=== PATIENT | female | born 2000 | race Caucasian/White ===

== ENCOUNTER 2025-06-19 16:52 | Inpatient (IN) | payer BC, SELFPAY ==
[2025-06-19] VITALS (15 sets, daily range): BP systolic 70–143; BP diastolic 45–86; PULSE 73–129; TEMP 36.8; O2SAT 95; BMI 34.0
--- NOTE | 2025-06-19 16:52 | LDADM ---
This patient, Teagan Lopez, was admitted to Labor/Delivery/Recovery [facility] on 06/19/25 at 16:52. Plans for labor, pain management and were discussed with patient. Patient/family oriented to hospital policies and general routines including ID bracelet, bed and alarms, visiting hours, pain management, procedures, bathroom and other care routines, personal items, smoking policy, room service/diet and guest tray routines, infant security routines, and visiting hours. Patient/Family are encouraged to report perceived risks to care and to ask questions if they do not understand what they are told or what they should do. See [facility] for further documentation.
--- OUTSIDE RECORDS SUMMARY | 2025-06-19 17:00 | XMS_ITS | Continuity of Care Document ---
Author Organization [facility] Address [address] [place] [address] Care Team Providers Care Health Services Coordinator Name Role Phone PETER CAMACHO Primary Care Provider Assessment No assessment recorded. Plan of Treatment Reminders Order Date Submit Date Provider Last Modified By Organization Details Last Modified Time Details Appointments INDUCTION 2024 05:00P Shalonda AKERS MD Not available Not available Not available OB ROUTINE 2024 08:45A Shalonda AKERS MD Not available Not available Not available Lab None recorded. Referral None recorded. Procedures None recorded. Surgeries None recorded. Imaging None recorded. Medication Orders famotidin e 20 mg tablet 2024 025 [facility], [address] [facility] [address], [place], [address], 05/20/2025 10:05:57 Patient TargetsNo targets recorded. Patient InstructionsNo instructions recorded. Reason for Referral None Reported. Results Created Date Observation Date Name Description Value Unit Range Abnormal Flag Note LastModifiedBy Organization Detail LastModifiedTime 12/25/19 25 12/24/2024 [UNIT Y] ANEUP LOIDY NIPT fraction 13.0% normal Not Available [facility] [address], [place], [address], 12/24/2024 22:07:33 12/25/19 25 12/24/2024 [UNIT Y] ANEUP LOIDY NIPT 22Q11.2 microdeletio n LOW RISK <1 in 10,000 normal Not Available [facility] [address], [place], [address], 12/24/2024 22:07:33 12/25/19 25 12/24/2024 [UNIT Y] ANEUP LOIDY NIPT sex chromosome aneuploidy NOT DETECT ED normal Not Available [facility] [address], [place], [address], 12/24/2024 22:07:33 12/25/19 25 12/24/2024 [UNIT Y] ANEUP LOIDY NIPT monosomy X LOW RISK <1 in 10,000 normal Not Available [facility] [address], [place], [address], 12/24/2024 22:07:33 12/25/19 25 12/24/2024 [UNIT Y] ANEUP LOIDY NIPT trisomy 13 LOW RISK <1 in 10,000 normal Not Available [facility] [address], [place], [address], 12/24/2024 22:07:33 12/25/19 25 12/24/2024 [UNIT Y] ANEUP LOIDY NIPT trisomy 18 LOW RISK <1 in 10,000 normal Not Available [facility] [address], [place], [address], 12/24/2024 22:07:33 12/25/19 25 12/24/2024 [UNIT Y] ANEUP LOIDY NIPT trisomy 21 LOW RISK <1 in 10,000 normal Not Available [facility] [address], [place], [address], 12/24/2024 22:07:33 12/25/19 25 12/24/2024 [UNIT Y] ANEUP LOIDY NIPT sex FEMALE normal Not Available [facility] [address], [place], [address], 12/24/2024 22:07:33 12/25/19 25 12/24/2024 [UNIT Y] ANEUP LOIDY NIPT gestation SINGLE TON normal Not Available [facility] [address], [place], [address], 12/24/2024 22:07:33 12/25/19 25 12/24/2024 [UNIT Y] ANEUP LOIDY NIPT for detailed report, see pdf See PDF normal Not Available [facility] [address], [place], [address], 12/24/2024 22:07:33 12/26/19 25 12/25/2024 [UNIT Y] NIRAJ Fowler sickle cell disease/beta -thalassemia /hemoglobino pathies carrier screen NEGATI VE normal Not Available [facility] [address], [place], [address], 12/25/2024 22:03:15 12/26/19 25 12/25/2024 [UNIT Y] NIRAJ Fowler alpha-thalas semia carrier screen NEGATI VE normal Not Available [facility] [address], [place], [address], 12/25/2024 22:03:15 12/26/19 25 12/25/2024 [UNIT Y] NIRAJ Fowler cystic fibrosis carrier screen NEGATI VE normal Not Available [facility] [address], [place], [address], 12/25/2024 22:03:15 12/26/19 25 12/25/2024 [UNIT Y] NIRAJ Fowler spinal muscular atrophy carrier screen NEGATI VE 2 SMN1 copies , SNP not presen t normal Not Available [facility] [address], [place], [address], 12/25/2024 22:03:15 12/26/19 25 12/25/2024 [UNIT Y] NIRAJ Fowler for detailed report, see pdf See PDF normal Not Available [facility] [address], [place], [address], 12/25/2024 22:03:15 12/18/1912/17/2024 CULTU RE: URINE result report SEE RESULT S BELOW Test: Cultu re: Urine Speci men Sourc e: Urine - Clean Catch Speci men Type: Urine Speci men Date: 2024 1312 Resul t Date: 20242 Resul t Statu s: Final resul t Abnor mal: No Resul ting Lab: [facility] [address] [facility] [address] Tel: CULTU RE ----- ----- ----- --- No growt h in 1 day (dete ction level of 10,00 0 colon ies / ml.) Not Available [facility] (Lab) [address] [facility], [place], [address], 12/18/2024 22:45:51 12/18/1912/17/2024 CBC W/DIF F WBC 8.4 10'3/ uL 3.5-10 .5 Not Available [facility] (Lab) [address] [place], [address], 12/19/2024 09:54:28 12/18/19 25 12/17/2024 CBC W/DIF F RBC 4.57 10'6/ uL (based on docume nted legal sex) 3.80-5 .20 Not Available [facility] (Lab) [address] [place], [address], 12/19/2024 09:54:28 12/18/19 25 12/17/2024 CBC W/DIF F HGB 14.2 g/dL (based on docume nted legal sex) 11.6-1 5.4 Not Available [facility] (Lab) [address] [place], [address], 12/19/2024 09:54:28 12/18/19 25 12/17/2024 CBC W/DIF F HCT 43.1 % (based on docume nted legal sex) 34.0-4 5.0 Not Available [facility] (Lab) [address], [place], [address], 12/19/2024 09:54:28 12/18/19 25 12/17/2024 CBC W/DIF F MCV 94.3 fL 80.0-9 9.0 Not Available [facility] (Lab) [address], [place], [address], 12/19/2024 09:54:28 12/18/19 25 12/17/2024 CBC W/DIF F MCH 31.1 pg 27.0-3 4.0 Not Available [facility] (Lab) [address], [place], [address], 12/19/2024 09:54:28 12/18/19 25 12/17/2024 CBC W/DIF F MCHC 32.9 g/dL 32.0-3 5.5 Not Available [facility] (Lab) [address], [place], [address], 12/19/2024 09:54:28 12/18/19 25 12/17/2024 CBC W/DIF F RDW 12.5 % 11.0-1 5.0 Not Available [facility] (Lab) [address], [place], [address], 12/19/2024 09:54:28 12/18/1912/17/2024 CBC W/DIF F plt 263 10'3/ uL 150-40 0 Not Available [facility] (Lab) [address], [place], [address], 12/19/2024 09:54:28 12/18/1912/17/2024 CBC W/DIF F MPV 11.1 fL 8.8-12 .1 Not Available [facility] (Lab) [address], [place], [address], 12/19/2024 09:54:28 12/18/19 25 12/17/2024 CBC W/DIF F NRBC's 0.0 % 0.0 Not Available [facility] (Lab) [address], [place], [address], 12/19/2024 09:54:28 12/18/19 25 12/17/2024 CBC W/DIF F absolute NRBCs 0.0 10'3/ uL no refere nce range establ ished Not Available [facility] (Lab) [address], [place], [address], 12/19/2024 09:54:28 12/18/19 25 12/17/2024 CBC W/DIF F neutrophils 70.6 % 34.0-7 3.0 Not Available [facility] (Lab) [address], [place], [address], 12/19/2024 09:54:28 12/18/19 25 12/17/2024 CBC W/DIF F lymphocytes 17.6 % 15.0-5 0.0 Not Available [facility] (Lab) [address], [place], [address], 12/19/2024 09:54:28 12/18/19 25 12/17/2024 CBC W/DIF F monocytes 8.1 % 1.0-15 .0 Not Available [facility] (Lab) [address], [place], [address], 12/19/2024 09:54:28 12/18/19 25 12/17/2024 CBC W/DIF F eosinophils 2.6 % 0.0-8. 0 Not Available [facility] (Lab) [address], [place], [address], 12/19/2024 09:54:28 12/18/19 25 12/17/2024 CBC W/DIF F basophils 0.7 % 0.0-2. 0 Not Available [facility] (Lab) [address], [place], [address], 12/19/2024 09:54:28 12/18/19 25 12/17/2024 CBC W/DIF F immature granulocytes 0.4 % no define d refere nce range Immat ure Granu locyt es (IG) repre sents autom ated enume ratio n of Metam yeloc ytes, Myelo cytes and Promy elocy almaz when IG is < 5%. Blast s are not inclu ded in IG and repor hiren separ ately if prese nt. Not Available [facility] (Lab) [address], [place], [address], 12/19/2024 09:54:28 12/18/19 25 12/17/2024 CBC W/DIF F absolute neutrophils 5.9 10'3/ uL 1.5-8. 0 Not Available [facility] (Lab) [address], [place], [address], 12/19/2024 09:54:28 12/18/19 25 12/17/2024 CBC W/DIF F absolute lymphocytes 1.5 10'3/ uL 1.0-4. 0 Not Available [facility] (Lab) [address], [place], [address], 12/19/2024 09:54:28 12/18/19 25 12/17/2024 CBC W/DIF F absolute monocytes 0.7 10'3/ uL 0.2-1. 0 Not Available [facility] (Lab) [address], [place], [address], 12/19/2024 09:54:28 12/18/19 25 12/17/2024 CBC W/DIF F absolute eosinophils 0.2 10'3/ uL 0.0-0. 6 Not Available [facility] (Lab) [address], [place], [address], 12/19/2024 09:54:28 12/18/19 25 12/17/2024 CBC W/DIF F absolute basophils 0.1 10'3/ uL 0.0-0. 3 Not Available [facility] (Lab) [address] [facility], [place], [address], 12/19/2024 09:54:28 12/18/1912/17/2024 CBC W/DIF F absolute immature granulocytes 0.0 10'3/ uL 0.00-0 .10 : Not Hispa maia or Latin o Refer ence range s for nonbi nary/ inter sex or unspe cifie d gende r patie nts have not been estab lishe d. Pleblanco e refer to the follo wing table for range s estab lishe d for cisge nder patie nts and evalu ate in the clini norbert rob xt of the indiv idual patie nt: https :[email or web address] danyelland book. nm.or g/gen derx Not Available [facility] (Lab) [address] [facility], [place], [address], 12/19/2024 09:54:28 12/18/1912/17/2024 HIV 1/2 ANTIG EN/AN TIBOD Y, REFLE X CONFI RMATI ON HIV antigen/anti body Nonrea ctive nonrea ctive : Not Hispa maia or Latin o HIV-1 antig en and HIV-1 /HIV- 2 antib odies were not detec hiren. No labor atory evide nce of HIV infec tion. Not Available [facility] (Lab) [address] [facility], [place], [address], 12/19/2024 09:54:28 12/18/1912/17/2024 HEPAT ITIS B SURFA CE ANTIG EN hepatitis B surface antigen Non-re active non-re active This assay was perfo rmed using [employer] ratio n reage nts and test kits. Value s obtai jane with other assay metho ds or kits canno t be used inter bailey eably . : Not Hispa miaa or Latin o Not Available [facility] (Lab) [address] [facility], [place], [address], 12/19/2024 09:54:29 12/18/1912/17/2024 HEPAT ITIS C ANTIB HERMELINDA SCREE N, REFLE X TO CONFI RMATI ON hepatitis C antibody Non-re active non-re active Antib odies to HCV Not Detec hiren, does not exclu de the possi bilit y of expos ure to HCV. : Not Hispa maia or Latin o Not Available [facility] (Lab) [address], [place], [address], 12/19/2024 09:54:29 12/18/1912/17/2024 RUBEL LA IGG ANTIB HERMELINDA, QUANT rubella antibodies, IgG Reacti ve reacti ve Not Available [facility] (Lab) [address], [place], [address], 12/19/2024 09:54:29 12/18/1912/17/2024 RUBEL LA IGG ANTIB HERMELINDA, QUANT rubella antibodies, IgG quant 15.1 IU/mL >=10 : Not Hispa maia or Latin o Non-r eacti ve (Non- Immun e) <10 IU/mL React bridger (Immu ne) > or = 10 IU/mL Not Available [facility] (Lab) [address], [place], [address], 12/19/2024 09:54:29 12/18/1912/17/2024 TYPE/ RH/SC REEN ABO/Rh type O POS Not Available [facility] (Lab) [address], [place], [address], 12/19/2024 09:54:30 12/18/1912/17/2024 TYPE/ RH/SC REEN antibody screen NEG Not Available [facility] (Lab) [address], [place], [address], 12/19/2024 09:54:30 12/18/1912/17/2024 TYPE/ RH/SC REEN exp date 2024 23:59 Not Available [facility] (Lab) [address], [place], [address], 12/19/2024 09:54:30 12/18/1912/17/2024 HEMOG LOBIN A1C hemoglobin A1C 5.2 % 4.0-5. 6 : Not Hispa maia or Latin o The Ameri can Diabe almaz Assoc iatio n recom mends that a prima ry goal of thera py shoul d be a HBA1C of < 7% and that physi cians shoul d reeva luate the treat ment regim en in patie nts with HBA1C value s consi stent ly > 8%. <5.7% Latesha l 5.7 - 6.4% Incre ased risk for diabe almaz >=6.5 % Diagn ostic of diabe almaz <7.0% Goal of thera py >8.0% Actio n sugge sted Not Available [facility] (Lab) [address] [facility], [place], [address], 12/19/2024 09:54:30 12/18/1912/17/2024 RPR SCREE N, REFLE X TITER /CONF IRMAT ION RPR qualitative Nonrea ctive nonrea ctive : Not Hispa maia or Latin o Not Available [facility] (Lab) [address] [facility], [place], [address], 12/19/2024 09:54:30 12/18/1912/17/2024 LEAD, BLOOD (ADUL T/PED IATRI C) lead, whole blood <1.0 mcg/d L <3.5 See Note 1 Giuliano sis was perfo rmed by Parth López ed Plasm a Mass Spect romet ry (ICPM S) Note 1 This test was devel oped and its giuliano tical perfo rmanc e higinio cteri stics have been deter mined by [employer] ostic s. It has not been clear ed or appro rico by the FDA. This assay has been valid ated pursu ant to the CLIA regul ation s and is used for clini norbert purpo ses. : Not Hispa maia or Latin o Perfo rming Organ izati on Infor matio n: Site ID: [id number] Name: [employer] ostic sJoseph Lynne Addre ss: [id number] [place] [address] Dire tor: Helio Beltran s Not Available [facility] (Lab) [address], [place], [address], 12/19/2024 09:54:31 12/18/19 25 12/17/2024 drug scree n, urine Amphetamines : negati ve Not Available [facility] [address], [place], [address], 12/17/2024 11:29:48 12/18/19 25 12/17/2024 drug scree n, urine Cannabinoids : negati ve Not Available [facility] [address], [place], [address], 12/17/2024 11:29:48 12/18/19 25 12/17/2024 drug scree n, urine Cocaine: negati ve Not Available [facility] [address], [place], [address], 12/17/2024 11:29:48 12/18/19 25 12/17/2024 drug scree n, urine Opiates: negati ve Not Available [facility] [address], [place], [address], 12/17/2024 11:29:48 12/18/19 25 12/17/2024 drug scree n, urine Barbiturates : negati ve Not Available [facility] [address], [place], [address], 12/17/2024 11:29:48 12/18/19 25 12/17/2024 drug scree n, urine Benzodiazepi benton: negati ve Not Available [facility] [address], [place], [address], 12/17/2024 11:29:48 04/08/20 25 04/08/2025 HEMAT OCRIT (HCT) HCT 42.0 % (based on docume nted legal sex) 34.0-4 5.0 Not Available [facility] (Lab) [address] [facility], [place], [address], 04/09/2025 11:41:17 04/08/20 25 04/08/2025 HEMOG LOBIN (HGB) HGB 13.6 g/dL (based on docume nted legal sex) 11.6-1 5.4 Not Available [facility] (Lab) [address] [facility], [place], [address], 04/09/2025 11:41:18 04/08/2004/08/2025 HIV 1/2 ANTIG EN/AN TIBOD Y, REFLE X CONFI RMATI ON HIV antigen/anti body Nonrea ctive nonrea ctive HIV-1 antig en and HIV-1 /HIV- 2 antib odies were not detec hiren. No labor atory evide nce of HIV infec tion. Not Available [facility] (Lab) [address] [facility], [place], [address], 04/09/2025 11:41:18 04/08/2004/08/2025 GTT - GESTA ESTHER L SCREE N, ACOG OB glucose, 1 hour screen 109 mg/dL 70-[address] [facility] (Lab) [address] [place], [address], 04/09/2025 11:41:18 04/08/2004/08/2025 RPR SCREE N, REFLE X TITER /CONF IRMAT ION RPR qualitative Nonrea ctive nonrea ctive Not Available [facility] (Lab) [address] [place], [address], 04/09/2025 11:41:19 04/08/20 25 04/08/2025 WOMEN 'S HEALT H SWAB PLUS, TIFFANY bacterial vaginosis (bv), tma Negati ve negati ve Not Available [facility] (Lab) [address] [place], [address], 04/09/2025 15:24:57 04/08/20 25 04/08/2025 WOMEN 'S HEALT H SWAB PLUS, TIFFANY cristino species, tma Positi ve negati ve abnormal Not Available [facility] (Lab) [address] [place], [address], 04/09/2025 15:24:57 04/08/20 25 04/08/2025 WOMEN 'S [facility] H SWAB PLUS, TIFFANY cristino glabrata, tma Negati ve negati ve Not Available [facility] (Lab) [address] [place], [address], 04/09/2025 15:24:57 04/08/20 25 04/08/2025 WOMEN 'S [facility] H SWAB PLUS, TIFFANY trichomonas vaginalis, tma Negati ve negati ve Not Available [facility] (Lab) [address] [place], [address], 04/09/2025 15:24:57 04/08/20 25 04/08/2025 WOMEN 'S [facility] SWAB PLUS, TIFFANY chlamydia trachomatis, PCR Negati ve negati ve Not Available [facility] (Lab) [address] [place], [address], 04/09/2025 15:24:57 04/08/20 25 04/08/2025 WOMEN 'S [facility] SWAB PLUS, TIFFANY neisseria gonorrhoeae, PCR Negati ve negati ve Bacte rial vagin osis detec ts the follo wing bacte negro assoc iated with bacte rial vagin osis (BV): Lacto bacil steffen (L. gasse ri, L. crisp atus and L. jense matthew), Gardn erell a vagin chen, and Atopo bium vagin ae. A singl e quali tativ e resul t is repor hiren base on instr ument softw are to deter mine BV posit bridger or negat bridger statu s. The Anel da speci es group tests for C. albic ans, C. tropi calis , C. parap roseanne is, C. dubli niens is. Testi ng is perfo rmed using the Trans cript ion Media hiren Ampli ficat ion metho d. Tests for Anel da glabr octavio, Trich omona s vagin chen, Chlam ydia trach omati s, and Neiss eria gonor rhoea e are also inclu ded in this panel . Not Available [facility] (Lab) [address], [place], [address], 04/09/2025 15:24:57 12/18/19 25 12/17/2024 US, obste tric, nucha l trans lucen cy No observ ation record ed. [email or web address] [facility] [address], [place], [address], 12/17/2024 17:14:02 12/18/19 25 12/17/2024 US, obste tric, nucha l trans lucen cy No observ ation record ed. [email or web address] [facility] [address], [place], [address], 12/19/2024 10:22:49 02/15/20 25 02/14/2025 US, obste tric, 2nd or 3rd trime ster No observ ation record ed. [email or web address] [facility] [address], [place], [address], 02/14/2025 17:07:31 02/15/20 25 02/14/2025 US, obste tric, 2nd or 3rd trime ster No observ ation record ed. [facility] [address], [place], [address], 02/14/2025 16:04:18 05/05/20 25 05/05/2025 US, obste tric, follo w-up No observ ation record ed. [email or web address] [facility] [address], [place], [address], 05/05/2025 18:49:46 05/05/20 25 05/05/2025 US, obste tric, follo w-up No observ ation record ed. [email or web address] [facility] [address], [place], [address], 06/02/2025 11:18:53 Result Notes None recorded. Problems Name Problem SNOMED Code Status Onset Date Resolution Date Notes Provider Name and Address Organization Details Recorded Time 56060539 Active 2024 Gwen Rene null, [facility] 10:44:59 Migraine 10112497 Active 2024 on Qulipta, limited data in , declined MFM consultati on; follows with neurology JOSEY AKERS MD [address], [place], [address], [facility] 11:34:02 Problem Notes None recorded. Procedures Surgical History Date Name Laterality Status Provider Name and Address Organization Details Recorded Time 05/10/2023 Date of Last Pap Smear completed Diane Denton [facility] 06/20/2023 11:38:20 Imaging Results None recorded. Procedure Notes None recorded. Medical Equipment None Reported. Allergies No known drug allergies Medications Name Sig Start Date Stop Date Status Note LastModified by Organization Details LastModified Time amoxicillin 500 mg capsule TAKE 1 CAPSULE BY MOUTH EVERY 8 HOURS UNTIL GONE 06/11 completed Not Available Not Available Not Available azithromyci n 250 mg tablet TAKE 2 TABLETS BY MOUTH ON DAY 1, AND THEN TAKE 1 TABLET BY MOUTH ONCE A DAY ON DAY 2 THROUGH DAY 5 02/14 completed Not Available Not Available Not Available fluconazole 150 mg tablet TAKE 1 TABLET BY MOUTH A ONE TIME DOSE active Not Available Not Available No t Available hydrocodone 5 mg-acetamin ophen 325 mg tablet TAKE 1 TABLET BY MOUTH EVERY 4 HOURS NEEDED WITH FOOD NO MORE THAN 5 PER 24 HOURS 06/11 completed Not Available Not Available Not Available rizatriptan 10 mg tablet TAKE 1 TABLET BY MOUTH NEEDED FOR MIGRAINE MAY REPEAT IN 2 HOURS IF UNRESOLVE D DO NOT EXCEED 30MG IN 24 HOURS 11/26 completed Not Available Not Available Not Available famotidine 20 mg tablet TAKE 1 TABLET BY MOUTH TWICE DAILY active Not Available Not Available No t Available scopolamine 1 mg over [address] 1 PATCH ON THE SKIN EVERY THIRD DAY NEEDED FOR NAUSEA 05/03 completed Not Available Not Available Not Available topiramate 100 mg tablet TAKE 2 TABLETS BY MOUTH NIGHTLY 11/26 completed Not Available Not Available Not Available doxycycline hyclate 100 mg tablet TAKE 1 TABLET BY MOUTH TWICE DAILY FOR 7 DAYS 06/20 completed Not Available Not Available Not Available Sprintec (28) 0.25 mg-0.035 mg tablet Take 1 tablet(s) every day by oral route for 90 days. 06/11 completed Not Available Not Available Not Available magnesium active Not Available Not Carole ilable Not Available calcium active Not Available Not Avail able Not Available iron active Not Available Not Availa ble Not Available active Not Available Not Avai lable Not Available Sprintec (28) 05/03 completed Not Available Not Available Not Available Probiotic active Not Available Not Carole ilable Not Available PreviDent 5000 Booster Plus 1.1 % dental paste AT NIGHT PLACE A PEA SIZED AMOUNT OF PREVIDENT ON TOOTHBRUS H, BRUSH ON, NO EATING OR DRINKING FOR 30 MINUTES LEAVE ON OVERNIGHT 01/17 completed Not Available Not Available [facility] Available [facility] mg disintegrat ing tablet DISSOLVE 1 TABLET BY MOUTH ONCE DAILY NEEDED FOR HEADACHE 11/26 completed Not Available Not Available Not Available Qulipta 30 mg tablet TAKE 1 TABLET BY MOUTH ONCE DAILY active Not Available Not Available No t Available Vitals Date Recorded Body weight Body mass index (BMI) Body height Systolic And Diastolic Provider Name and Address Organization Details Last Updated DateTime 05/20/2025 96526.811 34 g 30.8 kg/m2 163.83 cm 112/72 mm[Hg] Sandra Patrick [place] - [facility] 05/20/2025 09:27:28 Social History Question Answer Notes LastModified by Organizat ion Details LastModified Time How Many Years Have You Consumed Alcohol? 3 Information not available 05/03/2023 Are You Blind Or Do You Have Difficulty Seeing? No Information not available 05/03/2023 What Is Your Level Of Caffeine Consumption? Heavy Information not available 05/03/2023 How Much Tobacco Do You Chew? None Information not available 05/03/2023 In The 14 Days Before Symptom Onset, Have You Had Close Contact With A Laboratory-confirme d COVID-19 While That Case Was Ill? No Information n ot available 05/03/2023 In The 14 Days Before Symptom Onset, Have You Had Close Contact With A Person Who Is Under Investigation For COVID-19 While That Person Was Ill? No Information not available 05/03/2023 Have You Been To An Area Known To Be High Risk For COVID-19? No Information not available 05/03/2023 Are You Deaf Or Do You Have Serious Difficulty Hearing? No Information not available 05/03/2023 What Type Of Diet Are You Following? REGULAR Information n ot available 05/03/2023 What Is The Highest Grade Or Level Of School You Have Completed Or The Highest Degree You Have Received? VA83315-1 Information not available 05/03/2023 Are There Any Guns Present In Your Home? Yes Information not available 05/03/2023 Do You Use Protection During Sex? No Information not available 05/03/2023 Do You Use Your Seat Belt Or Car Seat Routinely? Yes Information not available 05/03/2023 Do You Have Smoke And Carbon Monoxide Detectors In Your Home? Yes Information not available 05/03/2023 How Much Tobacco Do You Smoke? No Information not available 05/03/2023 Do You Use Sunscreen Routinely? No Information not available 05/03/2023 Have You Used IV Drugs? No Information not available 05/03/2023 Sex: Unknown Functional Status Question Answer Note LastModified by Organizat ion Details LastModified Time Do you use any illicit or recreational drugs? No Information not available 05/03/2023 What is your level of alcohol consumption? Occasional Information not available 05/03/2023 Are you able to walk independently without assistance or assistive devices? 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 Occasional Information not available 05/03/2023 Mental Status Question Answer Note LastModified by Organization D etails LastModified Time Do you feel stressed (tense, restless, nervous, or anxious, or unable to sleep at night)? [id number] Information not available 05/03/2023 Family History Nothing Reported. Medical History Condition Response History of STI Y Headaches Y Urinary Tract Infection Y Gynecological History Statement/Question Response Abnormal Pap N Flow Moderate Date of LMP On BCP's at Conception? Y N Was last menstrual period normal N STIs/STDs Y HPV Vaccine N Duration of Flow (days) 7 Current Control Method Date of control 10/31/2017 Are cycles usually normal Y Frequency of Cycle (Q days) 21 Sexually Active? Y BCPs Menses Monthly Y Age of first menstrual cycle 12 Date of Last Pap Smear 05/10/2023 Sexual Problems? N LMP Unknown N Obstetrics History GPAL:G 1 P 0 0 0 0 Past Encounters Encounter ID Performer Location Encounter Start Date Encounter Closed Date Diagnosis/Indication Diagnosis SNOMED-CT Code Diagnosis ICD10 Code Diagnosis IMO Codes Diagnosis Note [id number] JOSEY AKERS MD [facility] [address] [place] [address] 04/22/2025 11:53:59 04/22/2025 12:24:41 Third trimester 69861543 Z34.03 [id number] JOSEY AKERS MD [facility] [address] [place] [address] 05/05/2025 17:28:46 05/06/2025 08:21:27 Uterine size for dates discrepancy 131554089 O26.843 Z3A.32 [id number] MD [facility] [place] [address] [place] [address] 05/07/2025 16:36:41 05/07/2025 17:51:50 Third trimester 76778800 Z34.03 [id number] JOSEY AKERS MD [facility] [address] [place] [address] 05/20/2025 09:16:40 05/20/2025 10:18:45 Heartburn 49832181 R12 73525 Gestation period, 34 weeks 20514748 Z3A.34 [id number] Health Concerns Section Related Observation LastModified by Organization Detai ls LastModified Time None Recorded Concern Status LastModified by Organization Details LastModified Time None Recorded Payers Encounter Date Sequence Insurance Name Policy Number Policy Romero Covered Member ID Romero Member ID Guarantor Name 05/20/2025 1 [place] [id number] Patrice Lopez [id number] Teagan Oraliamarlene Notes Date Note Type Note Provider Name and Address Organization Details Recorded Time 05/20/2025 text/html Generic HPI TemplateReported by Patient JOSEY AKERS MD [address], [place], [address], [facility] 05/20/2025 10:09:39 OBGyn Episode Ob Episode Information Episode Created Date Number of Fetuses Patient Bloodtype Patient rh Status Prepregnancy Weight lbs Domestic Partner Domestic Partner Phone Father Name Marriage Performer Status 12/18/19 25 1 O Positive 144 Patrice Lopez OPEN Fetus Data First Name Last Name Admitted to NICU Weight (g) Sex Living Outcome Pediatric Complications Fetus ID Race Codes Race Delivery Type [id number] Problems Problem Notes Problem Name Start Date End Date Resolution Snomed Code Not e Migraine 12/17/2024 [id number] on Qulipt a, limited data in , declined MFM consultation; follows with neurology Juice Calculation Initial Juice Date Initial Exam Date Initial Exam Provider Initial Ultrasound Date Last Menstrual Period Date Ultra Sound Weeks Gestation 06/26/2025 12/17/2024 11/26/2024 9 Eighteen To Twenty Week Juice Update Ultra Sound Date Fundal Height At Umbil Quickening Date Ultra Sound Latest Weeks Gestation Final Juice Confirmed By Final Juice Confirmed Date Final Juice Date Ultra Sound Latest Days Gestation 0 [email or web address] 12/19/2024 06/26/20 25 0 Pre- Flowsheet Flowsheet Date 12/17/2024 Tam Score Blood Edema Fundus Height Fundus Units Glucose Ketones Leukocytes Nitrite Labor Signs Protein Cervic Dilation Cervic Effacement Cervic Station Type Weight in lbs Pre/Post Dialysis Refused Weight 145.083623150164 BP Diastolic BP Location Tested BP Systolic BP Type 74 L arm 111 sitting Fetus Heart Rate Present A Present Fetus Movement Comments Patient presents to [facility] care. Hx of migraines, on Qulipta, seeing neurologist. Discussed lack of studies of Qulipta in ; animal studies available show increased risk of defects only at extremely high doses (130mg/kg/d vs patient's dose 30mg/d). Neuro appointment on Monday, also offered MFM referral for further evaluation of Qulipta safety. Patient declines. otherwise uncomplicated. No nausea or cramping. NT/NB wnl today, desires NIPT. Will draw today with new OB labs. RTC 4 weeks for routine care. Flowsheet Date 01/17/2025 Tam Score Blood Edema Fundus Height Fundus Units Glucose Ketones Leukocytes Nitrite Labor Signs Protein Cervic Dilation Cervic Effacement Cervic Station Type Weight in lbs Pre/Post Dialysis Refused 148.461710280517 BP Diastolic BP Location Tested BP Systolic BP Type 60 L arm 119 sitting Fetus Heart Rate Present A 137 Present Fetus Movement A No Comments +FM doing well, education an d precautions, congestion x weeks plan zpack, f/u 3 weeks anatomy Flowsheet Date 02/14/2025 Tam Score Blood Edema Fundus Height Fundus Units Glucose Ketones Leukocytes Nitrite Labor Signs Protein Cervic Dilation Cervic Effacement Cervic Station Type Weight in lbs Pre/Post Dialysis Refused BP Diastolic BP Location Tested BP Systolic BP Type Fetus Heart Rate Present Fetus Movement Comments Flowsheet Date 02/14/2025 Tam Score Blood Edema Fundus Height Fundus Units Glucose Ketones Leukocytes Nitrite Labor Signs Protein Cervic Dilation Cervic Effacement Cervic Station Type Weight in lbs Pre/Post Dialysis Refused 157.467490645483 BP Diastolic BP Location Tested BP Systolic BP Type 72 98 sitting Fetus Heart Rate Present A Present Fetus Movement A No Comments Doing well, no yet feeling f etal movement. Stopped Qulipta, neurologist stopped prescribing in . Some congestion. Anatomy complete and normal, EFW 57%. RTC 4 weeks. Flowsheet Date 03/11/2025 Tam Score Blood Edema Fundus Height Fundus Units Glucose Ketones Leukocytes Nitrite Labor Signs Protein Cervic Dilation Cervic Effacement Cervic Station Type Weight in lbs Pre/Post Dialysis Refused Weight 165.540181196078 BP Diastolic BP Location Tested BP Systolic BP Type 70 L arm 117 sitting Fetus Heart Rate Present A 135 Fetus Movement A Yes Comments Doing well, good movem ent. No cramping or bleeding. Minimal migraines. Discussed GCT and labs for next visit. RTC 4 weeks. Flowsheet Date 04/08/2025 Tam Score Blood Edema Fundus Height Fundus Units Glucose Ketones Leukocytes Nitrite Labor Signs Protein Cervic Dilation Cervic Effacement Cervic Station Type Weight in lbs Pre/Post Dialysis Refused Weight 172.953348970671 BP Diastolic BP Location Tested BP Systolic BP Type 78 L arm 126 sitting Fetus Heart Rate Present A 150 Fetus Movement A Yes Comments Good movement. No cram ping or bleeding. Does report increased yellow discharge and irritation, vaginitis swab sent. GCT and labs today. Discussed tdap. RTC 2 weeks. Flowsheet Date 04/22/2025 Tam Score Blood Edema Fundus Height Fundus Units Glucose Ketones Leukocytes Nitrite Labor Signs Protein Cervic Dilation Cervic Effacement Cervic Station Type Weight in lbs Pre/Post Dialysis Refused Weight 174.398234090598 BP Diastolic BP Location Tested BP Systolic BP Type 78 L arm 116 sitting Fetus Heart Rate Present A 145 Fetus Movement A Yes Comments Doing well, no cramping or b leeding. Passed GCT and labs. Irritation and discharge resolved. Repeat growth US and presentation next visit. RTC 2 weeks. Flowsheet Date 05/05/2025 Tam Score Blood Edema Fundus Height Fundus Units Glucose Ketones Leukocytes Nitrite Labor Signs Protein Cervic Dilation Cervic Effacement Cervic Station Type Weight in lbs Pre/Post Dialysis Refused BP Diastolic BP Location Tested BP Systolic BP Type Fetus Heart Rate Present Fetus Movement Comments Flowsheet Date 05/07/2025 Tam Score Blood Edema Fundus Height Fundus Units Glucose Ketones Leukocytes Nitrite Labor Signs Protein Cervic Dilation Cervic Effacement Cervic Station Type Weight in lbs Pre/Post Dialysis Refused 178.710307080519 BP Diastolic BP Location Tested BP Systolic BP Type 73 L arm 128 sitting Fetus Heart Rate Present A 140 Fetus Movement A Yes Comments Baby active, no cramping or bleeding. EFW 71%, vertex. MICHEAL wnl. Would like EIL 06/19. RTC 2 weeks. Dsicussed preadmission. Flowsheet Date 05/20/2025 Tam Score Blood Edema Fundus Height Fundus Units Glucose Ketones Leukocytes Nitrite Labor Signs Protein Cervic Dilation Cervic Effacement Cervic Station Type Weight in lbs Pre/Post Dialysis Refused 182.725999199718 BP Diastolic BP Location Tested BP Systolic BP Type 72 L arm 112 sitting Fetus Heart Rate Present A 145 Fetus Movement A Yes Comments Doing well, good movem ent. No cramping or bleeding. Increased heartburn, discussed tums and pepcid. Scheduled Tdap and RSV. Discussed GBS for next visit. RTC 2 weeks. Flowsheet Date 06/03/2025 Tam Score Blood Edema Fundus Height Fundus Units Glucose Ketones Leukocytes Nitrite Labor Signs Protein Cervic Dilation Cervic Effacement Cervic Station Type Weight in lbs Pre/Post Dialysis Refused Weight 185.072309006774 BP Diastolic BP Location Tested BP Systolic BP Type 72 L arm 127 sitting Fetus Heart Rate Present A 150 Fetus Movement A Yes Comments Good movement. No cram ping or bleeding. Heartburn improved. EIL scheduled. GBS collected. Labor precautions reviewed. RTC 1 week. Flowsheet Date 06/12/2025 Tam Score Blood Edema Fundus Height Fundus Units Glucose Ketones Leukocytes Nitrite Labor Signs Protein Cervic Dilation Cervic Effacement Cervic Station Type Weight in lbs Pre/Post Dialysis Refused Weight 186.291941669246 BP Diastolic BP Location Tested BP Systolic BP Type 78 L arm 121 sitting Fetus Heart Rate Present A 140 Fetus Movement A Yes Comments Baby active. No cramping or bleeding. GBS negative. EIL 06/19. SVE closed internally. Discussed cytotec induction. RTC 1 week. Flowsheet Date 06/17/2025 Tam Score Blood Edema Fundus Height Fundus Units Glucose Ketones Leukocytes Nitrite Labor Signs Protein Cervic Dilation Cervic Effacement Cervic Station Type Weight in lbs Pre/Post Dialysis Refused Weight 188.249927039307 BP Diastolic BP Location Tested BP Systolic BP Type 82 L arm 139 sitting Fetus Heart Rate Present A 145 Fetus Movement A Yes Comments Good movement. No cram ping or bleeding. EIL Monday. Labor precautions reviewed. Flowsheet Date 06/19/2025 Tam Score Blood Edema Fundus Height Fundus Units Glucose Ketones Leukocytes Nitrite Labor Signs Protein Cervic Dilation Cervic Effacement Cervic Station Type Weight in lbs Pre/Post Dialysis Refused BP Diastolic BP Location Tested BP Systolic BP Type Fetus Heart Rate Present Fetus Movement Comments Menstrual History Last Menstrual Date Menses Monthly On Bcp Conception Prior Menses Frequency Hcg Plus Date Menarche Onset Age Delivery Information Delivery Date Delivery Type Labor Anesthesia Weeks Gestation Incision Type Labor Labor Length Hrs Delivered By Post Complications Tubal Sterilization Discharge Date Comments Discharge Information Feeding Method Contraceptive Method Maternal HG B and HCT Levels
--- OUTSIDE RECORDS SUMMARY | 2025-06-19 17:00 | XMS_ITS | Data Portability ---
Author Organization [facility] Address [address] [place] [address] Care Team Providers Care Inside Polisher Name Role Phone DOUG PETER Primary Care Provider Assessment No assessment recorded. [...] famotidin e 20 mg tablet 2024 025 [facility], [address] [facility] Dustin De Leon, [place], [address], 05/20/2025 10:05:57 Patient TargetsNo targets recorded. Patient InstructionsNo instructions recorded. Reason for Referral None Reported. Results Created Date Observation Date Name Description Value Unit Range Abnormal Flag Note LastModifiedBy Organization Detail LastModifiedTime 06/03/2006/03/2025 CULTU RE: GROUP B STREP SCREE N, REFLE X SUSCE PTIBI LITY result report SEE RESULT S BELOW Test: Cultu re: Group B Strep , Refle x Susce ptibi lity ([facility]/ [facility] ) Speci men Sourc e: Vagin a/Rec luz Speci men Type: Vagin al/Re ctal Speci men Date: 2024 1452 Resul t Date: 2024 1318 Resul t Statu s: Final resul t Abnor mal: No Resul ting Lab: [facility] [address] [facility] [address] Tel: CULTU RE ----- ----- ----- --- No Group B strep isola hiren at 2 days (new ctive broth frances guidry t) Not Available [facility] (Lab) [address], [place], [address], 06/06/2025 14:22:10 05/05/20 25 05/05/2025 US, obste tric, follo w-up No observ ation record ed. [email or web address] [facility] [address], [place], [address], 05/05/2025 18:49:46 05/05/20 25 05/05/2025 US, obste tric, follo w-up No observ ation record ed. [email or web address] Meena [address], [address], 06/02/2025 11:18:53 Result Notes None recorded. Problems Name Problem SNOMED Code Status Onset Date Resolution Date Notes Provider Name and Address Organization Details Recorded Time 80308634 Active 2024 Gwen Rene null, [facility] 5 10:44:59 Migraine 95590322 Active 2024 on Qulipta, limited data in , declined MFM consultati on; follows with neurology JOSEY AKERS MD [address], [place], [address], [facility] 5 11:34:02 Problem Notes None recorded. Procedures Surgical History Date Name Laterality Status Provider Name and Address Organization Details Recorded Time 05/10/2023 Date of Last Pap Smear completed Diane Denton [facility] 06/20/2023 11:38:20 Imaging Results None recorded. [...] completed Not Available Not Available Not Available Nurtec ODT 75 mg disintegrat ing tablet DISSOLVE [...] Address Organization Details Last Updated DateTime 05/20/2025 28380.811 34 g 30.8 kg/m2 163.83 cm 112/72 mm[Hg] Sandra Patrick [facility] 05/20/2025 09:27:28 Date Recorded Body height Body mass index (BMI) Body weight Systolic And Diastolic Provider Name and Address Organization Details Last Updated DateTime 06/03/2025 163.83 cm 31.3 kg/m2 91244.59 g 127/72 mm[Hg] HO[facility]IE [facility] 06/03/2025 15:32:50 Date Recorded Body height Body mass index (BMI) Body weight Systolic And Diastolic Provider Name and Address Organization Details Last Updated DateTime 06/12/2025 163.83 cm 31.4 kg/m2 50472.18 g 121/78 mm[Hg] [facility] 06/12/2025 09:43:29 Date Recorded Body height Body mass index (BMI) Body weight Systolic And Diastolic Provider Name and Address Organization Details Last Updated DateTime 06/17/2025 163.83 cm 31.8 kg/m2 62834.37 g 139/82 mm[Hg] [facility] 06/17/2025 09:30:33 Social History Question Answer Notes LastModified by [...] Had Close Contact With A Laboratory-confirme d NICKOID-19 While That Case Was Ill? No Information [...] Or The Highest Degree You Have Received? 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 Occasional Information not available 05/03/2023 Mental Status Question Answer Note LastModified by Organization D etails LastModified Time Do you feel stressed (tense, restless, nervous, or anxious, or unable to sleep at night)? [id number] Information not available 05/03/2023 Family History Nothing Reported. Medical History Condition Response Urinary Tract Infection Y History of STI Y Headaches Y Gynecological History Statement/Question Response Abnormal Pap [...] ICD10 Code Diagnosis IMO Codes Diagnosis Note [id number] Tisha Freeman [facility] [address],[place] [address] 05/03/2023 11:35:50 05/03/2023 12:16:33 [id number] [facility] [address],[place] [address] 05/10/2023 11:32:46 05/10/2023 12:01:30 Gynecologic examination 24551220 Z01.419 Take Calcium with Vitamin D 1200mg daily if not receiving in daily diet. It is strongly advised to have an annual flu shot and up can obtain at most pharmacies . If you have not had a TDap shot in the last 10 years you should obtain one as well. Discussed with patient & provided with informatio n regarding Gardisil vaccine to prevent the 4 strains for HPV that cause cervical cancer if under age 26. Encourage safe sexual practices, to use condoms and limit partners if not already in a monogamous relationsh ip. Do monthly self breast exams. Have mammogram yearly or every other year depending on family history. BRCA testing is now available for patients with strong genetic history of female cancer. If interested contact the office. Engage in daily exercise of low impact aerobic exercise 45-60 minutes 4-5 times weekly. Avoid tobacco and illicit drugs as well as using moderation with alcohol intake less than 1-2 8 oz beverages daily. This lifestyle behavior pattern will lead to less health conditions and longer life span. If BMI greater than 25 weight watchers or dietary consult advised. Patient received above instructio ns, and questions have been answered. If you have any questions please call or respond to this email. Patient was made aware of the patient portal and may obtain a paper copy of today's plan if desired. Pap sent STD Screen sent Genetic Screen discussed Colon Screen na Dexa Screen na Routine Labs na Contracept ion care management 330155566 Z30.9 Happy on her OCPRF sent x 1yr [id number] JASE [facility] [address] [address] 06/20/2023 11:24:45 06/20/2023 12:26:56 Venereal disease screening 107806941 Z11.3 Here for TOCDoing wellNo sx'sPartne r treatedDis cussed safe sex practices/ STD guidelines .No further questionsW ill update on results. Time spent in visit is a total of 15 mins with at least 50% of visit consisting of counseling and review of plan of care. [id number] Ankit Brown MD [facility] [address] [address] 06/11/2024 11:12:45 06/11/2024 12:04:28 Gynecologic examination 37320162 Z01.419 Annual gynecologi norbert exam performed. Patient will come back in a year unless there are new symptoms. Suggest Calcium with Vitamin D if not eating in diet. Patient advised to get annual flu shot. Recommend yearly physicals and perform monthly breast exams. Genetic testing is available for patients with family history of cancer. Engage in safe sexual practices, use condoms. Encouraged to have daily exercise. Avoid tobacco and illicit drugs, moderation of alcohol. If BMI greater than 25 dietary consult advised. If you have any questions please call or email. Pap smear- UTD (2022 - WNL), will repeat in 2025 per ASCCP guidelines laboratory evaluation - PCP STI testing - declined Patient requested to stop BC as she wants to try to conceive. Recommende d taking PNV daily, track periods and ovulation with darnell. [id number] Ankit Brown MD [facility] [address],[place] [address] 11/26/2024 11:58:35 11/26/2024 12:55:32 Uterine size for dates discrepancy 958878928 O26.841 Z3A.09 3904833 [id number] Ankit Brown MD [facility] [address],[place] [address] 11/26/2024 11:58:47 11/26/2024 13:54:00 Amenorrhea 83469802 N91.2 01026 this patient is an 24-year-ol d female with amenorrhea . She has a positive test and ultrasound shows a viable intrauteri ne . We talked about early care. Talked about precaution s in that included comments about diet, exercise, over-the-c ounter medication s.. We talked about vaccines. Talked about genetic screening. Talked about her ultrasound today and your ultrasound at 12 weeks. She will begin routine care. We spent 20 minutes face-to-fa ce. More than 50% was counseling . [id number] JOSEY AKERS MD [facility] [address],[place] [address] 12/17/2024 09:33:51 12/17/2024 10:36:24 screening 452330473 Z36.82 Z3A.12 499618 [id number] JOSEY AKERS MD [facility] [address],[place] [address] 12/17/2024 09:34:13 12/17/2024 11:36:14 11089896 Z34.00 [id number] Migraine 97572198 G43.90 9 [id number] - on Qulipta- discussed limited data in - normal 12 week US- declined MFM referral- following with neurology [id number] Arpita Johnston CNM [facility] [address],[place] [address] 01/17/2025 09:41:07 01/17/2025 10:29:07 Gestation period, 17 weeks 23502763 Z3A.17 9917867 [id number] JOSEY AKERS MD [facility] [address],[place] [address] 02/14/2025 14:10:21 02/14/2025 15:41:09 Ultrasound scan - obstetric 078718984 Z36.3 39125 [id number] MD Izabella LUJAN [address],[place] [address] 02/14/2025 14:10:38 02/14/2025 16:25:43 Third trimester 32370143 Z34.03 47178499 [id number] MD Izabella LUJAN [address],[place] [address] 03/11/2025 10:06:43 03/11/2025 14:40:50 Second trimester 76057769 Z34.02 12123154 [id number] MD Izabella LUJAN [address],[place] [address] 04/08/2025 09:24:00 04/08/2025 10:05:17 Acute vaginitis 73423887 N76.0 69892 Gestation period, 28 weeks 69142624 Z3A.28 0949015 [id number] MD Izabella LUJAN [address],[place] [address] 04/22/2025 11:53:59 04/22/2025 12:24:41 Third trimester 20208739 Z34.03 33794477 [id number] MD Izabella LUJAN [address],[place] [address] 05/05/2025 17:28:46 05/06/2025 08:21:27 Uterine size for dates discrepancy 252091080 O26.843 Z3A.32 4699917 [id number] MD Izabella LUJAN [address],[place] [address] 05/07/2025 16:36:41 05/07/2025 17:51:50 Third trimester 19886792 Z34.03 42861809 [id number] MD Izabella LUJAN [address],[place] [address] 05/20/2025 09:16:40 05/20/2025 10:18:45 Heartburn 69093596 R12 69031 Gestation period, 34 weeks 77684414 Z3A.34 7895988 [id number] JOSEY AKERS MD [facility] [address] [address] 06/03/2025 15:12:33 06/03/2025 16:11:36 Third trimester 86945363 Z34.03 88957731 [id number] JOSEY AKERS MD [facility] [address] [address] 06/12/2025 09:31:22 06/12/2025 12:32:06 Third trimester 32249537 Z34.03 21878642 [id number] JOSEY AKERS MD [facility] [address],[facility] [place] [address] 06/17/2025 09:26:48 06/17/2025 10:08:29 Third trimester 71160741 Z34.03 [id number] Health Concerns Section Related Observation LastModified by Organization Detai ls LastModified Time None Recorded Concern Status LastModified by Organization Details LastModified Time None Recorded Advance Directives Directive None Recorded Payers Insurance Date Sequence Insurance Name Policy Number Policy Romero Covered Member ID Romero Member ID Guarantor Name 06/14/2025 1 [facility] [id number] Patrice Lopez [id number] Teagan Lopez Notes Date Note Type Note Provider Name and Address Organization Details Recorded Time 05/20/2025 text/html Generic HPI TemplateReported by Patient JOSEY AKERS MD [address], [place], [address], [facility] 05/20/2025 10:09:39 06/03/2025 text/html Generic HPI TemplateReported by Patient JOSEY AKERS MD [address], [place], [address], [facility] 06/03/2025 16:08:54 06/12/2025 text/html Generic HPI TemplateReported by Patient JOSEY AKERS MD [address], [place], [address], [facility] 06/12/2025 12:29:51 06/17/2025 text/html Generic HPI TemplateReported by Patient JOSEY AKERS MD [address], [place], [address], [facility] 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 Status 12/18/19 25 1 O Positive 144 Ibrahim Pickell OPEN Fetus Data First Name Last Name Admitted to NICU Weight (g) Sex Living Outcome Pediatric Complications Fetus ID Race Codes Race Delivery Type [id number] Problems Problem Notes Problem Name Start Date End Date Resolution Snomed Code Not e Migraine 12/17/2024 08864353 on Qulipt a, limited data in , [...] Weeks Gestation Final Juice Confirmed By Final Jiuce Confirmed Date Final Juice Date Ultra Sound Latest Days Gestation 0 [email or web address] 12/19/2024 06/26/20 25 0 Pre- Flowsheet Flowsheet Date 12/17/2024 Tam Score Blood Edema Fundus Height Fundus Units Glucose Ketones Leukocytes Nitrite Labor Signs Protein Cervic Dilation Cervic Effacement Cervic Station Type Weight in lbs Pre/Post Dialysis Refused Weight 145.265981445135 BP Diastolic BP Location Tested BP Systolic BP Type 74 L arm 111 sitting Fetus Heart Rate Present A Present Fetus Movement Comments Patient presents to [facility] care. Hx of migraines, on Qulipta, seeing [...] Type Weight in lbs Pre/Post Dialysis Refused 148.751165959105 BP Diastolic BP Location Tested BP Systolic [...] Type Weight in lbs Pre/Post Dialysis Refused 157.680919212214 BP Diastolic BP Location Tested BP Systolic [...] Weight in lbs Pre/Post Dialysis Refused Weight 165.478015236022 BP Diastolic BP Location Tested BP Systolic [...] Weight in lbs Pre/Post Dialysis Refused Weight 172.939627163343 BP Diastolic BP Location Tested BP Systolic [...] Weight in lbs Pre/Post Dialysis Refused Weight 174.985586576729 BP Diastolic BP Location Tested BP Systolic [...] Type Weight in lbs Pre/Post Dialysis Refused 178.757705296379 BP Diastolic BP Location Tested BP Systolic [...] Type Weight in lbs Pre/Post Dialysis Refused 182.742898569897 BP Diastolic BP Location Tested BP Systolic [...] Weight in lbs Pre/Post Dialysis Refused Weight 185.194619003337 BP Diastolic BP Location Tested BP Systolic [...] Weight in lbs Pre/Post Dialysis Refused Weight 186.960207722859 BP Diastolic BP Location Tested BP Systolic [...] Weight in lbs Pre/Post Dialysis Refused Weight 188.120744402000 BP Diastolic BP Location Tested BP Systolic BP Type 82 L arm 139 sitting Fetus Heart Rate Present A 145 Fetus Movement A Yes Comments Good movement. No cram ping or bleeding. EIL Monday. Labor precautions reviewed. Flowsheet Date 06/19/2025 Atm Score Blood Edema Fundus Height Fundus Units [...]
--- OUTSIDE RECORDS SUMMARY | 2025-06-19 17:00 | XMS_ITS | Continuity of Care Document ---
Author Organization [facility]OS IRON [facility], [facility] Address [address] [place] [address] Care Team Providers Care Consumer Relations Complaint Clerk Name Role Phone DOUG PETER Primary Care Provider [phone] Assessment No assessment recorded. Plan of Treatment [...] None recorded. Imaging None recorded. Medication Orders None recorded. Patient TargetsNo targets recorded. Patient InstructionsNo instructions recorded. Reason for Referral None Reported. Results Created Date Observation Date Name Description Value Unit Range Abnormal Flag Note LastModifiedBy Organization Detail LastModifiedTime 12/25/1912/24/2024 [UNIT Y] ANEUP LOIDY NIPT fraction 13.0% normal Not Available Alex [address], [place], [address], 12/24/2024 22:07:33 12/25/19 25 12/24/2024 [UNIT Y] ANEUP LOIDY NIPT 22Q11.2 microdeletio n LOW RISK <1 in 10,000 normal Not Available [facility] [address], [place], [address], 12/24/2024 22:07:33 12/25/19 25 12/24/2024 [UNIT Y] ANEUP LOIDY NIPT sex chromosome aneuploidy NOT DETECT ED normal Not Available [facility] [address], [place], [address], 12/24/2024 22:07:33 12/25/19 25 12/24/2024 [UNIT Y] ANEUP LOIDY NIPT monosomy X LOW RISK <1 in 10,000 normal Not Available [facility] [address], [place], [address], 12/24/2024 22:07:33 12/25/19 25 12/24/2024 [UNIT Y] ANEUP LOIDY NIPT trisomy 13 LOW RISK <1 in 10,000 normal Not Available [facility] [address], [place], [address], 12/24/2024 22:07:33 12/25/19 25 12/24/2024 [UNIT Y] ANEUP LOIDY NIPT trisomy 18 LOW RISK <1 in 10,000 normal Not Available [facility] [address], [place], [address], 12/24/2024 22:07:33 12/25/19 25 12/24/2024 [UNIT Y] ANEUP LOIDY NIPT trisomy 21 LOW RISK <1 in 10,000 normal Not Available [facility] [address], [place], [address], 12/24/2024 22:07:33 12/25/19 25 12/24/2024 [UNIT Y] ANEUP LOIDY NIPT sex FEMALE normal Not Available [facility] [address], [place], [address], 12/24/2024 22:07:33 12/25/19 25 12/24/2024 [UNIT Y] ANEUP LOIDY NIPT gestation SINGLE TON normal Not Available [facility] [address], [place], [address], 12/24/2024 22:07:33 12/25/19 25 12/24/2024 [UNIT Y] ANEUP ASHLEY NIPT for detailed report, see pdf See PDF normal Not Available [facility] [address], [place], [address], 12/24/2024 22:07:33 12/26/19 25 12/25/2024 [UNIT Y] NIRAJ JULIENNE Fowler sickle cell disease/beta -thalassemia /hemoglobino pathies carrier screen NEGATI VE normal Not Available [facility] [address], [place], [address], 12/25/2024 22:03:15 12/26/19 25 12/25/2024 [UNIT Y] NIRAJ JULIENNE Fowler alpha-thalas semia carrier screen NEGATI VE normal Not Available [facility] [address], [place], [address], 12/25/2024 22:03:15 12/26/19 25 12/25/2024 [UNIT Y] NIRAJ JULIENNE Fowler cystic fibrosis carrier screen NEGATI VE normal Not Available [facility] [address], [place], [address], 12/25/2024 22:03:15 12/26/19 25 12/25/2024 [UNIT Y] NIRAJ Fowler spinal muscular atrophy carrier screen NEGATI VE 2 SMN1 copies , SNP not presen t normal Not Available [facility] [address], [place], [address], 12/25/2024 22:03:15 12/26/19 25 12/25/2024 [UNIT Y] NIRAJ Fowler for detailed report, see pdf See PDF normal Not Available [facility] [address], [place], [address], 12/25/2024 22:03:15 12/18/19 25 12/17/2024 CULTU RE: URINE result report SEE RESULT S BELOW Test: Cultu re: Urine Speci men Sourc e: Urine - Clean Catch Speci men Type: Urine Speci men Date: 2024 1312 Resul t Date: 2024 2142 Resul t Statu s: Final resul t Abnor mal: No Resul ting Lab: [facility] [address] [facility] [address] Tel: CULTU RE ----- ----- ----- --- No growt h in 1 day (dete ction level of 10,00 0 colon ies / ml.) Not Available [facility] (Lab) [address], [place], [address], 12/18/2024 22:45:51 12/18/1912/17/2024 CBC W/DIF F WBC 8.4 10'3/ uL 3.5-10 .5 Not Available [facility] (Lab) [address] [place], [address], 12/19/2024 09:54:28 12/18/1912/17/2024 CBC W/DIF F RBC 4.57 10'6/ uL (based on docume nted legal sex) 3.80-5 .20 Not Available [facility] (Lab) [address] [place], [address], 12/19/2024 09:54:28 12/18/1912/17/2024 CBC W/DIF F HGB 14.2 g/dL (based on docume nted legal sex) 11.6-1 5.4 Not Available [facility] (Lab) [address] [place], [address], 12/19/2024 09:54:28 12/18/1912/17/2024 CBC W/DIF F HCT 43.1 % (based on docume nted legal sex) 34.0-4 5.0 Not Available [facility] (Lab) [address] [place], [address], 12/19/2024 09:54:28 12/18/19 25 12/17/2024 CBC W/DIF F MCV 94.3 fL 80.0-9 9.0 Not Available [facility] (Lab) [address], [place], [address], 12/19/2024 09:54:28 12/18/19 25 12/17/2024 CBC W/DIF F MCH 31.1 pg 27.0-3 4.0 Not Available [facility] (Lab) [address], [place], [address], 12/19/2024 09:54:28 12/18/19 25 12/17/2024 CBC W/DIF F MCHC 32.9 g/dL 32.0-3 5.5 Not Available [facility] (Lab) [address], [place], [address], 12/19/2024 09:54:28 12/18/19 25 12/17/2024 CBC W/DIF F RDW 12.5 % 11.0-1 5.0 Not Available [facility] (Lab) [address], [place], [address], 12/19/2024 09:54:28 12/18/19 25 12/17/2024 CBC W/DIF F plt 263 10'3/ uL 150-40 0 Not Available [facility] (Lab) [address], [place], [address], 12/19/2024 09:54:28 12/18/19 25 12/17/2024 CBC W/DIF F MPV 11.1 fL 8.8-12 .1 Not Available [facility] (Lab) [address], [place], [address], 12/19/2024 09:54:28 12/18/19 25 12/17/2024 CBC W/DIF F NRBC's 0.0 % 0.0 Not Available [facility] (Lab) [address], [place], [address], 12/19/2024 09:54:28 12/18/19 25 12/17/2024 CBC W/DIF F absolute NRBCs 0.0 10'3/ uL no refere nce range establ ished Not Available [facility] (Lab) [address], [place], [address], 12/19/2024 09:54:28 12/18/19 25 12/17/2024 CBC W/DIF F neutrophils 70.6 % 34.0-7 3.0 Not Available [facility] (Lab) [address], [place], [address], 12/19/2024 09:54:28 12/18/19 25 12/17/2024 CBC W/DIF F lymphocytes 17.6 % 15.0-5 0.0 Not Available [facility] (Lab) [address], [place], [address], 12/19/2024 09:54:28 12/18/19 25 12/17/2024 CBC W/DIF F monocytes 8.1 % 1.0-15 .0 Not Available [facility] (Lab) [address], [place], [address], 12/19/2024 09:54:28 12/18/19 25 12/17/2024 CBC W/DIF F eosinophils 2.6 % 0.0-8. 0 Not Available [facility] (Lab) [address], [place], [address], 12/19/2024 09:54:28 12/18/19 25 12/17/2024 CBC W/DIF F basophils 0.7 % 0.0-2. 0 Not Available [facility] (Lab) [address], [place], [address], 12/19/2024 09:54:28 12/18/19 25 12/17/2024 CBC W/DIF [...] separ ately if prese nt. Not Available [facility] (Lab) [address], [place], [address], 12/19/2024 09:54:28 12/18/1912/17/2024 CBC W/DIF F absolute neutrophils 5.9 10'3/ uL 1.5-8. 0 Not Available [facility] (Lab) [address], [place], [address], 12/19/2024 09:54:28 12/18/1912/17/2024 CBC W/DIF F absolute lymphocytes 1.5 10'3/ uL 1.0-4. 0 Not Available [facility] (Lab) [address], [place], [address], 12/19/2024 09:54:28 12/18/19 25 12/17/2024 CBC W/DIF F absolute monocytes 0.7 10'3/ uL 0.2-1. 0 Not Available [facility] (Lab) [address], [place], [address], 12/19/2024 09:54:28 12/18/19 25 12/17/2024 CBC W/DIF F absolute eosinophils 0.2 10'3/ uL 0.0-0. 6 Not Available [facility] (Lab) [address], [place], [address], 12/19/2024 09:54:28 12/18/19 25 12/17/2024 CBC W/DIF F absolute basophils 0.1 10'3/ uL 0.0-0. 3 Not Available [facility] (Lab) [address] [place], [address], 12/19/2024 09:54:28 12/18/1912/17/2024 CBC W/DIF F absolute immature granulocytes 0.0 10'3/ uL 0.00-0 .10 : Not Hispa maia or Latin o Refer ence range s for nonbi nary/ inter sex or unspe cifie d gende r patie nts have not been estab lishe d. Sharmila e refer [facility] for range s estab lishe d for cisge nder patie nts and evalu ate in the clini norbert rob xt of the indiv idual patie nt: https ://la bhand book. nm.or g/gen derx Not Available [facility] (Lab) [address], [place], [address], 12/19/2024 09:54:28 12/18/1912/17/2024 HIV 1/2 ANTIG EN/AN TIBOD Y, REFLE X CONFI RMATI ON HIV antigen/anti body Nonrea ctive nonrea ctive : Not Hispa maia or Latin o HIV-1 antig en and HIV-1 /HIV- 2 antib odies were not detec hiren. No labor atory evide nce of HIV infec tion. Not Available [facility] (Lab) [address], [place], [address], 12/19/2024 09:54:28 12/18/1912/17/2024 HEPAT ITIS B SURFA CE ANTIG EN hepatitis B surface antigen Non-re active non-re active This assay was perfo rmed using [employer] ratio n reage nts and test kits. Value s obtai jane with other assay metho ds or kits canno t be used inter bailey eably . : Not Hispa maia or Latin o Not Available [facility] (Lab) [address], [place], [address], 12/19/2024 09:54:29 12/18/1912/17/2024 HEPAT ITIS C ANTIB HERMELINDA SCREE N, REFLE X TO CONFI RMATI ON hepatitis C antibody Non-re active non-re active Antib odies to HCV Not Detec hiren, does not exclu de the possi bilit y of expos ure to HCV. : Not Hispa maia or Latin o Not Available [facility] (Lab) [address], [place], [address], 12/19/2024 09:54:29 12/18/19 25 12/17/2024 RUBEL LA IGG ANTIB HERMELINDA, QUANT rubella antibodies, IgG Reacti ve reacti ve Not Available [facility] (Lab) [address], [place], [address], 12/19/2024 09:54:29 12/18/19 25 12/17/2024 RUBEL LA IGG ANTIB HERMELINDA, QUANT rubella antibodies, IgG quant 15.1 IU/mL >=10 : Not Hispa maia or Latin o Non-r eacti ve (Non- Immun e) <10 IU/mL React bridger (Immu ne) > or = 10 IU/mL Not Available [facility] (Lab) [address], [place], [address], 12/19/2024 09:54:29 12/18/19 25 12/17/2024 TYPE/ RH/SC REEN ABO/Rh type O POS Not Available [facility] (Lab) [address], [place], [address], 12/19/2024 09:54:30 12/18/19 25 12/17/2024 TYPE/ RH/SC REEN antibody screen NEG Not Available [facility] (Lab) [address], [place], [address], 12/19/2024 09:54:30 12/18/19 25 12/17/2024 TYPE/ RH/SC REEN exp date 2024 23:59 Not Available [facility] (Lab) [address], [place], [address], 12/19/2024 09:54:30 12/18/19 25 12/17/2024 HEMOG LOBIN A1C hemoglobin A1C 5.2 % [...] >8.0% Actio n sugge sted Not Available [facility] (Lab) [address], [place], [address], 12/19/2024 09:54:30 12/18/1912/17/2024 RPR SCREE N, REFLE X TITER /CONF IRMAT ION RPR qualitative Nonrea ctive nonrea ctive : Not Hispa maia or Latin o Not Available [facility] (Lab) [address], [place], [address], 12/19/2024 09:54:30 12/18/1912/17/2024 LEAD, BLOOD (ADUL T/PED IATRI C) lead, whole blood <1.0 mcg/d L <3.5 See Note 1 Giuliano sis was perfo rmed by Parth López ed Plasm a Mass Spect romet ry (ICPM S) Note 1 This test was devel oped and its giuliano tical perfo rmanc e higinio cteri stics have been deter mined by [employer]. It has not been clear ed or appro rico by the FDA. This assay has been valid ated pursu ant to the CLIA regul ation s and is used for clini norbert purpo ses. : Not Hispa maia or Latin o Perfo rming Organ izati on Infor matgeorge n: Site ID: [id number] Name: [employer] [facility]-Bret Lynne Addre ss: [address] [place] [address] Direc tor: Helio ny V Ruby s Not Available [facility] (Lab) [address], [place], [address], 12/19/2024 09:54:31 12/18/19 25 12/17/2024 drug scree n, urine Amphetamines : negati ve Not Available [facility] [address], [place], [address], 12/17/2024 11:29:48 12/18/19 25 12/17/2024 drug scree n, urine Cannabinoids : negati ve Not Available [facility] [address], [place], [address], 12/17/2024 11:29:48 12/18/19 25 12/17/2024 drug scree n, urine Cocaine: negati ve Not Available [facility] [address], [place], [address], 12/17/2024 11:29:48 12/18/19 25 12/17/2024 drug scree n, urine Opiates: negati ve Not Available [facility] [address], [place], [address], 12/17/2024 11:29:48 12/18/19 25 12/17/2024 drug scree n, urine Barbiturates : negati ve Not Available [facility] [address], [place], [address], 12/17/2024 11:29:48 12/18/19 25 12/17/2024 drug scree n, urine Benzodiazepi benton: negati ve Not Available [facility] [address], [place], [address], 12/17/2024 11:29:48 04/08/20 25 04/08/2025 HEMAT OCRIT (HCT) HCT 42.0 % (based on docume nted legal sex) 34.0-4 5.0 Not Available [facility] (Lab) [address], [place], [address], 04/09/2025 11:41:17 04/08/20 25 04/08/2025 HEMOG LOBIN (HGB) HGB 13.6 g/dL (based on docume nted legal sex) 11.6-1 5.4 Not Available [facility] (Lab) [address], [place], [address], 04/09/2025 11:41:18 04/08/20 25 04/08/2025 HIV 1/2 ANTIG EN/AN TIBOD Y, REFLE X CONFI RMATI ON HIV antigen/anti body Nonrea ctive nonrea ctive HIV-1 antig en and HIV-1 /HIV- 2 antib odies were not detec hiren. No labor atory evide nce of HIV infec tion. Not Available [facility] (Lab) [address], [place], [address], 04/09/2025 11:41:18 04/08/2004/08/2025 GTT - GESTA ESTHER L SCREE N, ACOG OB glucose, 1 hour screen 109 mg/dL 70-135 Not Available [facility] (Lab) [address], [place], [address], 04/09/2025 11:41:18 04/08/20 25 04/08/2025 RPR SCREE N, REFLE X TITER /CONF IRMAT ION RPR qualitative Nonrea ctive nonrea ctive Not Available [facility] (Lab) [address] [place], [address], 04/09/2025 11:41:19 04/08/20 25 04/08/2025 WOMEN 'S HEALT H SWAB PLUS, TIFFANY bacterial vaginosis (bv), tma Negati ve negati ve Not Available [facility] (Lab) [address] [place], [address], 04/09/2025 15:24:57 04/08/20 25 04/08/2025 WOMEN 'S HEALT H SWAB PLUS, TIFFANY cristino species, tma Positi ve negati ve abnormal Not Available [facility] (Lab) [address], [place], [address], 04/09/2025 15:24:57 04/08/20 25 04/08/2025 [facility] cristino glabrata, tma Negati ve negati ve Not Available [facility] (Lab) [address] [place], [address], 04/09/2025 15:24:57 04/08/20 25 04/08/2025 [facility] TIFFANY trichomonas vaginalis, tma Negati ve negati ve Not Available [facility] (Lab) [address], [place], [address], 04/09/2025 15:24:57 04/08/20 25 04/08/2025 [facility] TIFFANY chlamydia trachomatis, PCR Negati ve negati ve Not Available [facility] (Lab) [address] [place], [address], 04/09/2025 15:24:57 04/08/20 25 04/08/2025 [facility] TIFFANY neisseria gonorrhoeae, PCR [...] ded in this panel . Not Available [facility] (Lab) [address], [place], [address], 04/09/2025 15:24:57 12/18/19 25 12/17/2024 US, obste tric, nucha l trans lucen cy No observ ation record ed. [email or web address] [facility] [address], [place], [address], 12/17/2024 17:14:02 12/18/19 25 12/17/2024 US, obste tric, nucha l trans lucen cy No observ ation record ed. [email or web address] [facility] [address], [place], [address], 12/19/2024 10:22:49 02/15/20 25 02/14/2025 US, obste tric, 2nd or 3rd trime ster No observ ation record ed. [email or web address] [address], [place], [address], 02/14/2025 17:07:31 02/15/20 25 02/14/2025 US, obste tric, 2nd or 3rd trime ster No observ ation record ed. [email or web address] [facility] [address], [place], [address], 02/14/2025 16:04:18 05/05/20 25 05/05/2025 US, obste tric, follo w-up No observ ation record ed. [email or web address] [facility] [address], [place], [address], 05/05/2025 18:49:46 05/05/20 25 05/05/2025 US, obste tric, follo w-up No observ ation record ed. [email or web address] [address] [address], [place], [address], 06/02/2025 11:18:53 Result Notes None recorded. Problems Name Problem SNOMED Code Status Onset Date Resolution Date Notes Provider Name and Address Organization Details Recorded Time 84664565 Active 2024 Gwen Rene null, [facility] 10:44:59 Migraine 17919743 Active 2024 on Qulipta, limited data in , declined MFM consultati on; follows with neurology JOSEY AKERS MD [address], [place], [address], [facility] 5 11:34:02 Problem Notes None recorded. Procedures Surgical History Date Name Laterality Status Provider Name and Address Organization Details Recorded Time 05/10/2023 Date of Last Pap Smear completed Diane Denton [facility] 06/20/2023 11:38:20 Imaging Results None [...] completed Not Available Not Available Not Available [facility] ODT 75 mg disintegrat ing tablet DISSOLVE [...] and Address Organization Details Last Updated DateTime 05/07/2025 75447.441 86 g 30.1 kg/m2 163.83 cm 128/73 mm[Hg] Sandra Patrick [facility] 05/07/2025 17:03:44 Social History Question Answer Notes LastModified by [...] Or The Highest Degree You Have Received? 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 Occasional Information not available 05/03/2023 Mental Status Question Answer Note LastModified by Organization D etails LastModified Time Do you feel stressed (tense, restless, nervous, or anxious, or unable to sleep at night)? [id number] Information not available 05/03/2023 Family History Nothing Reported. Medical History Condition Response History of STI Y Urinary Tract Infection Y Headaches Y Gynecological History Statement/Question Response [...] ICD10 Code Diagnosis IMO Codes Diagnosis Note [id number] JOSEY AKERS MD [facility] [address] [address] 04/08/2025 09:24:00 04/08/2025 10:05:17 Acute vaginitis 24588209 N76.0 88278 Gestation period, 28 weeks 04994511 Z3A.28 [id number] JOSEY AKERS MD [facility] [address],[place] [address] 04/22/2025 11:53:59 04/22/2025 12:24:41 Third trimester 54174655 Z34.03 [id number] JOSEY AKERS MD [facility] [address],[place] [address] 05/05/2025 17:28:46 05/06/2025 08:21:27 Uterine size for dates discrepancy 944234565 O26.843 Z3A.32 [id number] [id number] JOSEY AKERS MD [facility] [address] [place] [address] 05/07/2025 16:36:41 05/07/2025 17:51:50 Third trimester 58467663 Z34.03 [id number] Health Concerns Section Related Observation LastModified by Organization Detai ls LastModified Time None Recorded Concern Status LastModified by Organization Details LastModified Time None Recorded Payers Encounter Date Sequence Insurance Name Policy Number Policy Romero Covered Member ID Romero Member ID Guarantor Name 05/07/2025 1 [employer] [id number] Patrice Lopez [id number] Teagan Lopez Notes Date Note Type Note Provider Name and Address Organization Details Recorded Time 05/07/2025 text/html Generic HPI TemplateReported by Patient JOSEY AKERS MD [address], [place], [address], [facility] 05/07/2025 17:31:24 OBGyn Episode Ob Episode Information Episode Created Date Number of Fetuses Patient Bloodtype Patient rh Status Prepregnancy Weight lbs Domestic Partner Domestic Partner Phone Father Name Supervisor Roving Department Status 12/18/19 25 1 O Positive 144 Patrice Lopez OPEN Fetus Data First Name Last Name Admitted to NICU Weight (g) Sex Living Outcome Pediatric Complications Fetus ID Race Codes Race Delivery Type [id number] Problems Problem Notes Problem Name Start Date End Date Resolution Snomed Code Not e Migraine 12/17/2024 89332282 on Qulipt a, limited data in , [...] Date Ultra Sound Latest Days Gestation 0 [email or web address] 12/19/2024 06/26/20 25 0 Pre-marcial Flowsheet Flowsheet Date 12/17/2024 Tam Score Blood Edema Fundus Height Fundus Units Glucose Ketones Leukocytes Nitrite Labor Signs Protein Cervic Dilation Cervic Effacement Cervic Station Type Weight in lbs Pre/Post Dialysis Refused Weight 145.663972124675 BP Diastolic BP Location Tested BP Systolic BP Type 74 L arm 111 sitting Fetus Heart Rate Present A Present Fetus Movement Comments Patient presents to [facility] care. Hx of migraines, on Qulipta, [...] Type Weight in lbs Pre/Post Dialysis Refused 148.961494098761 BP Diastolic BP Location Tested BP Systolic [...] Type Weight in lbs Pre/Post Dialysis Refused 157.470429286594 BP Diastolic BP Location Tested BP Systolic [...] Weight in lbs Pre/Post Dialysis Refused Weight 165.528998711651 BP Diastolic BP Location Tested BP Systolic [...] Weight in lbs Pre/Post Dialysis Refused Weight 172.324340332338 BP Diastolic BP Location Tested BP Systolic [...] Weight in lbs Pre/Post Dialysis Refused Weight 174.341918040760 BP Diastolic BP Location Tested BP Systolic [...] Type Weight in lbs Pre/Post Dialysis Refused 178.345072241786 BP Diastolic BP Location Tested BP Systolic [...] Type Weight in lbs Pre/Post Dialysis Refused 182.381103323720 BP Diastolic BP Location Tested BP Systolic [...] Weight in lbs Pre/Post Dialysis Refused Weight 185.931367084895 BP Diastolic BP Location Tested BP Systolic [...] Weight in lbs Pre/Post Dialysis Refused Weight 186.019798407443 BP Diastolic BP Location Tested BP Systolic [...] Weight in lbs Pre/Post Dialysis Refused Weight 188.204792387978 BP Diastolic BP Location Tested BP Systolic [...]
--- OUTSIDE RECORDS SUMMARY | 2025-06-19 17:01 | XMS_ITS | Clinical Summary ---
[facility] Address [address] [place] [address] Care Team Providers Care Lime Spreader Name Role Phone Kj Marshall MD Primary Care Provider [phone] Allergies No known active allergies Medications topiramate (TOPAMAX) 100 mg tablet TAKE 2 TABLETS BY MOUTH NIGHTLY 60 tablet 2 4 Active Additional Information Patient not taking.Reported on 12/20/2024 Active Problems Problem Noted Date Diagnosed Date Migraine with aura and witho ut status migrainosus, not intractable 09/25/2018 Assessment & Plan (09/25/2018 9:43 AM CDT): The patient is an 18-year-old female with migraine headaches with aura. At this time the patient's headaches are under good control with Topamax 50 mg at bedtime. We discussed today triggers for migraines. I recommended she start keeping a headache diary so that she can better identify her personal triggers. We also discussed today the use of sumatriptan. After discussing the pathophysiology of migraine, I believe she understands better that she needs to take the sumatriptan early in the course of the migraine. Finally, we discussed the role up hormones with regard to migraines. If her headaches get worse, my 1st recommendation would be to switch to a low estrogen control tablet. As she is not experiencing significant migraines now, I am not make any changes to her medications. Most of the time today was spent on education. I will see her back on an as-needed basis. Menorrhagia with regular cycle 07/17/2017 Severe menstrual cramps 07/17/2017 Sacroiliitis 04/14/2016 Resolved Problems Problem Noted Date Diagnosed Date Resolved Date URI with cough and congestion 08/01/2019 03/17/2020 Immunizations Immunization Administration Dates Next Due DTaP, Unspecified 02/20/2006, 2,02/14/2001,2000,0 2000 HPV9 12/11/2017,10/09/2017 Hep A, Unspecified 07/12/2012,01/31/2012 Hep B, Unspecified 05/12/2001,2000, 001 HiB 11/05/2001,02/14/2001,2000 ,2000 Influenza, Unspecified 04/02/2024(Deferr ed: Patient Refused),04/02/2022(Deferred: Patient Refused),04/21/2021(Deferred: Patient Refused) MMR 02/20/2006,11/05/2001 Meningococcal MCV4P (Menactra) 10/09/2017 Pneumococcal Conjugate PCV 13 08/07/2001, 001,2000,2000 Polio, Unspecified 02/20/2006,02/12/2002, 001,2000 Tdap 08/20/2024,01/31/2012 Varicella 08/07/2001 Medical History Medical History Date Comments Headache Migraines 8 or 9 years old Family History Medical History Relation Name Comments No Known Problems Brother 1 No Known Problems Brother 2 No Known Problems Maternal Grandfather No Known Problems Maternal Grandmother Hypothyroidism Mother No Known Problems Paternal Grandfather No Known Problems Paternal Grandmother Relation Name Status Comments Brother 1 Alive Brother 2 Alive Father Alive Maternal Grandfather Alive Maternal Grandmother Alive Mother Alive Paternal Grandfather Paternal Grandmother Alive Social History Tobacco Use Types Packs/Day Years Used Date Smoking Tobacco: Former Vaping Smokeless Tobacco: Never Tobacco Cessation:Counseling Given: Not Answered Alcohol Use Standard Drinks/Week Comments Never 0 (1 standard drink = 0.6 oz pur e alcohol) AUDIT-C Answer Date Recorded Frequency of Alcohol Consumption Never 08/01/2019 Average Number of Drinks Not on file 020 Frequency of Binge Drinking Not on file 07/05 PHQ-2 Answer Date Recorded PHQ-2 Total Score (If total score is 3 or more points, staff should administer the PHQ-9) 0 08/20/2024 Comments Unknown Sex and Gender Information Value Date Recorded Sex Assigned at Female 10/01/2018 10:04 AM CDT Legal Sex Female 2:39 AM [employer] Gender Identity Female 10/01/2018 10:04 AM CDT Sexual Orientation Straight 01/09/2019 7: 09 AM CDT Last Filed Vital Signs Vital Sign Reading Time Taken Comments Blood Pressure 112/64 12/20/2024 10:23 AM CDT Pulse 75 12/20/2024 10:23 AM CDT Temperature 37.1 C (98.7 F) 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 Oxygen Saturation 99% 12/20/2024 10:23 AM CDT Inhaled Oxygen Concentration - - Weight 61.7 kg (136 lb) 12/20/2024 10:23 AM CDT Height 162.6 cm (5' 4.02) 12/20/2024 10:23 AM C DT Body Mass Index 23.33 12/20/2024 10:23 AM CDT Plan of Treatment Health Maintenance Due Date Last Done Comments Cervical Cancer Screening 2000 Chlamydia and Gonorrhea (GC/ CT) Screening 2000 Hepatitis C Screening 2000 Varicella Vaccines (2 of 2 - 2-dose childhood series) 03/20/2006 08/07/2001 HPV Vaccines (3 - 3-dose series) 04/10/2018 12/12/19 18, 10/09/2017 Depression Screening 08/20/2025 08/20/2024, 05/16/2023, 01/10/2019 Regular Well Visit/Exam 18-64 08/20/2025 08/20/2024, 05/16/2023 DTaP/Tdap/Td Vaccine (8 - Td or Tdap) 08/20/2034 08/20/2024, 01/31/2012, 02/20/2006, Additional history exists Hepatitis B Screening Completed 05/12/2001 , 2000, 2000 Pneumococcal vaccine <65 Completed 002, 02/14/2001, 2000, Additional history exists Influenza Vaccine Discontinued Insurance [employer] [place] Care Teams Lime Spreader Relationship Specialty Start Date End Date Kj Marshall MD PCP - General Family Medicine 09/10/18
--- OUTSIDE RECORDS SUMMARY | 2025-06-19 17:01 | XMS_ITS | Continuity of Care Document ---
Author Organization [facility] Address [address] [place] [address] Care Team Providers Care [employer] Name Role Phone DOUG PETER Primary Care [...] normal Not Available [address], [place], [address], 12/24/2024 22:07:33 12/25/19 25 12/24/2024 [UNIT Y] ANEUP LOIDY NIPT 22Q11.2 microdeletio n LOW RISK <1 in 10,000 normal Not Available [facility] [address], [place], [address], 12/24/2024 22:07:33 12/25/19 25 12/24/2024 [UNIT Y] ANEUP LOIDY NIPT sex chromosome aneuploidy NOT DETECT ED normal Not Available [facility] [address], [place], [address], 12/24/2024 22:07:33 12/25/19 25 12/24/2024 [UNIT Y] ANEUP LOIDY NIPT monosomy X LOW RISK <1 in 10,000 normal Not Available [facility] [address], [place], [address], 12/24/2024 22:07:33 12/25/19 25 12/24/2024 [UNIT Y] ANEUP LOIDY NIPT trisomy 13 LOW RISK <1 in 10,000 normal Not Available [facility] [address], [place], [address], 12/24/2024 22:07:33 12/25/19 25 12/24/2024 [UNIT Y] ANEUP LOIDY NIPT trisomy 18 LOW RISK <1 in 10,000 normal Not Available [facility] [address], [place], [address], 12/24/2024 22:07:33 12/25/19 25 12/24/2024 [UNIT Y] ANEUP LOIDY NIPT trisomy 21 LOW RISK <1 in 10,000 normal Not Available [facility] [address], [place], [address], 12/24/2024 22:07:33 12/25/19 25 12/24/2024 [UNIT Y] ANEUP LOIDY NIPT sex FEMALE normal Not Available [facility] [address], [place], [address], 12/24/2024 22:07:33 12/25/19 25 12/24/2024 [UNIT Y] ANEUP LOIDY NIPT gestation SINGLE TON normal Not Available [facility] [address], [place], [address], 12/24/2024 22:07:33 12/25/19 25 12/24/2024 [UNIT Y] ANEUP ASHLEY NIPT for detailed report, see pdf See PDF normal Not Available [facility] [address], [place], [address], 12/24/2024 22:07:33 12/26/19 25 12/25/2024 [UNIT Y] NIRAJ JULIENNE Fowler sickle cell disease/beta -thalassemia /hemoglobino pathies carrier screen NEGATI VE normal Not Available [facility] [address], [place], [address], 12/25/2024 22:03:15 12/26/19 25 12/25/2024 [UNIT Y] NIRAJ JULIENNE Fowler alpha-thalas semia carrier screen NEGATI VE normal Not Available [facility] [address], [place], [address], 12/25/2024 22:03:15 12/26/19 25 12/25/2024 [UNIT Y] NIRAJ JULIENNE Fowler cystic fibrosis carrier screen NEGATI VE normal Not Available [facility] [address], [place], [address], 12/25/2024 22:03:15 12/26/19 25 12/25/2024 [UNIT Y] NIRAJ Fowler spinal muscular atrophy carrier screen NEGATI VE 2 SMN1 copies , SNP not presen t normal Not Available [facility] [address], [place], [address], 12/25/2024 22:03:15 12/26/19 25 12/25/2024 [UNIT Y] NIRAJ Fowler for detailed report, see pdf See PDF normal Not Available [facility] [address], [place], [address], 12/25/2024 22:03:15 12/18/19 25 12/17/2024 CULTU RE: URINE result report SEE RESULT S BELOW Test: Cultu re: Urine Speci men Sourc e: Urine - Clean Catch Speci men Type: Urine Speci men Date: 2024 1312 Resul t Date: 2024 2142 Resul t Statu s: Final resul t Abnor mal: No Resul ting Lab: [facility] [address] [facility] [address] Tel: CULTU RE ----- ----- ----- --- No growt h in 1 day (dete ction level of 10,00 0 colon ies / ml.) Not Available [facility] (Lab) [address] [facility], [place], [address], 12/18/2024 22:45:51 12/18/1912/17/2024 CBC W/DIF F WBC 8.4 10'3/ uL 3.5-10 .5 Not Available [facility] (Lab) [address] [place], [address], 12/19/2024 09:54:28 12/18/1912/17/2024 CBC W/DIF F RBC 4.57 10'6/ uL (based on docume nted legal sex) 3.80-5 .20 Not Available [facility] (Lab) [address] [place], [address], 12/19/2024 09:54:28 12/18/1912/17/2024 CBC W/DIF F HGB 14.2 g/dL (based on docume nted legal sex) 11.6-1 5.4 Not Available [facility] (Lab) [address] [place], [address], 12/19/2024 09:54:28 12/18/1912/17/2024 CBC W/DIF F HCT 43.1 % (based on docume nted legal sex) 34.0-4 5.0 Not Available [facility] (Lab) [address] [place], [address], 12/19/2024 09:54:28 12/18/19 25 12/17/2024 CBC W/DIF F MCV 94.3 fL 80.0-9 9.0 Not Available [facility] (Lab) [address], [place], [address], 12/19/2024 09:54:28 12/18/19 25 12/17/2024 CBC W/DIF F MCH 31.1 pg 27.0-3 4.0 Not Available [facility] (Lab) [address], [place], [address], 12/19/2024 09:54:28 12/18/19 25 12/17/2024 CBC W/DIF F MCHC 32.9 g/dL 32.0-3 5.5 Not Available [facility] (Lab) [address], [place], [address], 12/19/2024 09:54:28 12/18/19 25 12/17/2024 CBC W/DIF F RDW 12.5 % 11.0-1 5.0 Not Available [facility] (Lab) [address], [place], [address], 12/19/2024 09:54:28 12/18/19 25 12/17/2024 CBC W/DIF F plt 263 10'3/ uL 150-40 0 Not Available [facility] (Lab) [address], [place], [address], 12/19/2024 09:54:28 12/18/19 25 12/17/2024 CBC W/DIF F MPV 11.1 fL 8.8-12 .1 Not Available [facility] (Lab) [address], [place], [address], 12/19/2024 09:54:28 12/18/19 25 12/17/2024 CBC W/DIF F NRBC's 0.0 % 0.0 Not Available [facility] (Lab) [address], [place], [address], 12/19/2024 09:54:28 12/18/19 25 12/17/2024 CBC W/DIF F absolute NRBCs 0.0 10'3/ uL no refere nce range establ ished Not Available [facility] (Lab) [address], [place], [address], 12/19/2024 09:54:28 12/18/19 25 12/17/2024 CBC W/DIF F neutrophils 70.6 % 34.0-7 3.0 Not Available [facility] (Lab) [address] [facility], [place], [address], 12/19/2024 09:54:28 12/18/19 25 12/17/2024 CBC W/DIF F lymphocytes 17.6 % 15.0-5 0.0 Not Available [facility] (Lab) [address] [facility], [place], [address], 12/19/2024 09:54:28 12/18/19 25 12/17/2024 CBC W/DIF F monocytes 8.1 % 1.0-15 .0 Not Available [facility] (Lab) [address] [facility], [place], [address], 12/19/2024 09:54:28 12/18/19 25 12/17/2024 CBC W/DIF F eosinophils 2.6 % 0.0-8. 0 Not Available [facility] (Lab) [address] [facility], [place], [address], 12/19/2024 09:54:28 12/18/19 25 12/17/2024 CBC W/DIF F basophils 0.7 % 0.0-2. 0 Not Available [facility] (Lab) [address] [facility], [place], [address], 12/19/2024 09:54:28 12/18/19 25 12/17/2024 CBC W/DIF [...] separ ately if prese nt. Not Available [facility] (Lab) [address] [facility], [place], [address], 12/19/2024 09:54:28 12/18/1912/17/2024 CBC W/DIF F absolute neutrophils 5.9 10'3/ uL 1.5-8. 0 Not Available [facility] (Lab) [address] [facility], [place], [address], 12/19/2024 09:54:28 12/18/1912/17/2024 CBC W/DIF F absolute lymphocytes 1.5 10'3/ uL 1.0-4. 0 Not Available [facility] (Lab) [address] [facility], [place], [address], 12/19/2024 09:54:28 12/18/19 25 12/17/2024 CBC W/DIF F absolute monocytes 0.7 10'3/ uL 0.2-1. 0 Not Available [facility] (Lab) [address] [facility], [place], [address], 12/19/2024 09:54:28 12/18/19 25 12/17/2024 CBC W/DIF F absolute eosinophils 0.2 10'3/ uL 0.0-0. 6 Not Available [facility] (Lab) [address] [facility], [place], [address], 12/19/2024 09:54:28 12/18/19 25 12/17/2024 CBC W/DIF F absolute basophils 0.1 10'3/ uL 0.0-0. 3 Not Available [facility] (Lab) [address] [place], [address], 12/19/2024 09:54:28 12/18/1912/17/2024 CBC W/DIF F absolute immature granulocytes 0.0 10'3/ uL 0.00-0 .10 : Not Hispa maia or Latin o Refer ence range s for nonbi nary/ inter sex or unspe cifie d gende r patie nts have not been estab lishe d. Sharmila e refer [facility] for range s estab lishe d for cisge nder patie nts and evalu ate in the clini norbert rob xt of the indiv idual patie nt: https ://la bhand book. nm.or g/gen derx Not Available [facility] (Lab) [address] [facility], [place], [address], 12/19/2024 09:54:28 12/18/1912/17/2024 HIV 1/2 ANTIG EN/AN TIBOD Y, REFLE X CONFI RMATI ON HIV antigen/anti body Nonrea ctive nonrea ctive : Not Hispa maia or Latin o HIV-1 antig en and HIV-1 /HIV- 2 antib odies were not detec hiren. No labor atory evide nce of HIV infec tion. Not Available [facility] (Lab) [address] [facility], [place], [address], 12/19/2024 09:54:28 12/18/1912/17/2024 HEPAT ITIS B SURFA [...] Hispa maia or Latin o Not Available [facility] (Lab) [address] [facility], [place], [address], 12/19/2024 09:54:29 12/18/1912/17/2024 HEPAT ITIS C ANTIB HERMELINDA SCREE N, REFLE X TO CONFI RMATI ON hepatitis C antibody Non-re active non-re active Antib odies to HCV Not Detec hiren, does not exclu de the possi bilit y of expos ure to HCV. : Not Hispa maia or Latin o Not Available [facility] (Lab) [address], [place], [address], 12/19/2024 09:54:29 12/18/19 25 12/17/2024 RUBEL LA IGG ANTIB HERMELINDA, QUANT rubella antibodies, IgG Reacti ve reacti ve Not Available [facility] (Lab) [address], [place], [address], 12/19/2024 09:54:29 12/18/19 25 12/17/2024 RUBEL LA IGG ANTIB HERMELINDA, QUANT rubella antibodies, IgG quant 15.1 IU/mL >=10 : Not Hispa maia or Latin o Non-r eacti ve (Non- Immun e) <10 IU/mL React bridger (Immu ne) > or = 10 IU/mL Not Available [facility] (Lab) [address], [place], [address], 12/19/2024 09:54:29 12/18/19 25 12/17/2024 TYPE/ RH/SC REEN ABO/Rh type O POS Not Available [facility] (Lab) [address], [place], [address], 12/19/2024 09:54:30 12/18/19 25 12/17/2024 TYPE/ RH/SC REEN antibody screen NEG Not Available [facility] (Lab) [address], [place], [address], 12/19/2024 09:54:30 12/18/19 25 12/17/2024 TYPE/ RH/SC REEN exp date 2024 23:59 Not Available [facility] (Lab) [address], [place], [address], 12/19/2024 09:54:30 12/18/19 25 12/17/2024 HEMOG LOBIN [...] >8.0% Actio n sugge sted Not Available [facility] (Lab) [address] [facility], [place], [address], 12/19/2024 09:54:30 12/18/1912/17/2024 RPR SCREE N, REFLE X TITER /CONF IRMAT ION RPR qualitative Nonrea ctive nonrea ctive : Not Hispa maia or Latin o Not Available [facility] (Lab) [address] [facility], [place], [address], 12/19/2024 09:54:30 12/18/1912/17/2024 LEAD, BLOOD (ADUL T/PED IATRI C) lead, whole blood <1.0 mcg/d L <3.5 See Note 1 Giuliano sis was perfo rmed by Parth López ed Plasm a Mass Spect romet ry (ICPM S) Note 1 This test was devel oped and its giuliano tical perfo rmanc e higinio cteri stics have been deter mined by [employer] [facility]. It has not been clear ed or appro rico by the FDA. This assay has been valid ated pursu ant to the CLIA regul ation s and is used for clini norbert purpo ses. : Not Hispa maia or Latin o Perfo rming Organ izati on Infor matgeorge n: Site ID: [id number] Name: [facility]-[place] Lynne Addre ss: [address] [place] [address] Direc tor: Helio ny V Ruby s Not Available [facility] (Lab) [address] [facility], [place], [address], 12/19/2024 09:54:31 12/18/19 25 12/17/2024 drug scree n, urine Amphetamines : negati ve Not Available [facility] [address], [place], [address], 12/17/2024 11:29:48 12/18/19 25 12/17/2024 drug scree n, urine Cannabinoids : negati ve Not Available [facility] [address], [place], [address], 12/17/2024 11:29:48 12/18/19 25 12/17/2024 drug scree n, urine Cocaine: negati ve Not Available [facility] [address], [place], [address], 12/17/2024 11:29:48 12/18/19 25 12/17/2024 drug scree n, urine Opiates: negati ve Not Available [facility] [address], [place], [address], 12/17/2024 11:29:48 12/18/19 25 12/17/2024 drug scree n, urine Barbiturates : negati ve Not Available [facility] [address], [place], [address], 12/17/2024 11:29:48 12/18/19 25 12/17/2024 drug scree n, urine Benzodiazepi benton: negati ve Not Available [facility] [address], [place], [address], 12/17/2024 11:29:48 04/08/20 25 04/08/2025 HEMAT OCRIT (HCT) HCT 42.0 % (based on docume nted legal sex) 34.0-4 5.0 Not Available [facility] (Lab) [address], [place], [address], 04/09/2025 11:41:17 04/08/20 25 04/08/2025 HEMOG LOBIN (HGB) HGB 13.6 g/dL (based on docume nted legal sex) 11.6-1 5.4 Not Available [facility] (Lab) [address] [facility], [place], [address], 04/09/2025 11:41:18 04/08/20 25 04/08/2025 HIV 1/2 ANTIG EN/AN TIBOD Y, REFLE X CONFI RMATI ON HIV antigen/anti body Nonrea ctive nonrea ctive HIV-1 antig en and HIV-1 /HIV- 2 antib odies were not detec hiren. No labor atory evide nce of HIV infec tion. Not Available [facility] (Lab) [address] [facility], [place], [address], 04/09/2025 11:41:18 04/08/2004/08/2025 GTT - GESTA ESTHER L SCREE N, ACOG OB glucose, 1 hour screen 109 mg/dL 70-135 Not Available [facility] (Lab) [address] [facility], [place], [address], 04/09/2025 11:41:18 04/08/20 25 04/08/2025 RPR SCREE N, REFLE X TITER /CONF IRMAT ION RPR qualitative Nonrea ctive nonrea ctive Not Available [facility] (Lab) [address] [place], [address], 04/09/2025 11:41:19 04/08/20 25 04/08/2025 WOMEN 'S HEALT H SWAB PLUS, TIFFANY bacterial vaginosis (bv), tma Negati ve negati ve Not Available [facility] (Lab) [address] [place], [address], 04/09/2025 15:24:57 04/08/20 25 04/08/2025 WOMEN 'S HEALT H SWAB PLUS, TIFFANY cristino species, tma Positi ve negati ve abnormal Not Available [facility] (Lab) [address] [facility], [place], [address], 04/09/2025 15:24:57 04/08/20 25 04/08/2025 [facility]FFANY cristino glabrata, tma Negati ve negati ve Not Available [facility] (Lab) [address] [place], [address], 04/09/2025 15:24:57 04/08/20 25 04/08/2025 [facility], TIFFANY trichomonas vaginalis, tma Negati ve negati ve Not Available [facility] (Lab) [address] [facility], [place], [address], 04/09/2025 15:24:57 04/08/20 25 04/08/2025 [facility], TIFFANY chlamydia trachomatis, PCR Negati ve negati ve Not Available [facility] (Lab) [address] [place], [address], 04/09/2025 15:24:57 04/08/20 25 04/08/2025 [facility], TIFFANY neisseria gonorrhoeae, [...] ded in this panel . Not Available [facility] (Lab) [address] [facility], [place], [address], 04/09/2025 15:24:57 06/03/20 25 06/03/2025 CULTU RE: GROUP B STREP SCREE N, [...] t Abnor mal: No Resul ting Lab: [facility] [address] [facility] [address] Tel: CULTU RE ----- ----- ----- --- No Group B strep isola hiren at 2 days (new ctive broth enhan cemen t) Not Available [facility] (Lab) [address] [facility], [place], [address], 06/06/2025 14:22:10 12/18/19 25 12/17/2024 US, obste tric, nucha l trans lucen cy No observ ation record ed. [email or web address] [address], [place], [address], 12/17/2024 17:14:02 12/18/19 25 12/17/2024 US, obste tric, nucha l trans lucen cy No observ ation record ed. [email or web address] [address], [place], [address], 12/19/2024 10:22:49 02/15/20 25 02/14/2025 US, obste tric, 2nd or 3rd trime ster No observ ation record ed. [email or web address] [facility] [address], [place], [address], 02/14/2025 17:07:31 02/15/20 25 02/14/2025 US, obste tric, 2nd or 3rd trime ster No observ ation record ed. [email or web address] [address], [place], [address], 02/14/2025 16:04:18 05/05/20 25 05/05/2025 US, obste tric, follo w-up No observ ation record ed. [email or web address] [address] [address], [place], [address], 05/05/2025 18:49:46 05/05/20 25 05/05/2025 US, obste tric, follo w-up No observ ation record ed. [email or web address] [address], [place], [address], 06/02/2025 11:18:53 Result Notes None recorded. Problems Name Problem SNOMED Code Status Onset Date Resolution Date Notes Provider Name and Address Organization Details Recorded Time 50451061 Active 2024 Gwen Rene null, [facility] 5 10:44:59 Migraine 31003513 Active 2024 on Qulipta, limited data in , declined MFM consultati on; follows with neurology JOSEY AKERS MD [address], [place], [address], [facility] 5 11:34:02 Problem Notes None recorded. Procedures Surgical History Date Name Laterality Status Provider Name and Address Organization Details Recorded Time 05/10/2023 Date of Last Pap Smear completed Diane Denton [facility] 06/20/2023 11:38:20 Imaging Results None [...] No t Available Vitals Date Recorded Body height Body mass index (BMI) Body weight Systolic And Diastolic Provider Name and Address Organization Details Last Updated DateTime 06/03/2025 163.83 cm 31.3 kg/m2 88066.59 g 127/72 mm[Hg] HOLLIE PURVIS [facility] 06/03/2025 15:32:50 Social History Question Answer Notes LastModified by [...] Or The Highest Degree You Have Received? 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 Occasional Information not available 05/03/2023 Mental Status Question Answer Note LastModified by Organization D etails LastModified Time Do you feel stressed (tense, restless, nervous, or anxious, or unable to sleep at night)? [id number] Information not available 05/03/2023 Family History Nothing [...] ICD10 Code Diagnosis IMO Codes Diagnosis Note [id number] MD Izabella LUJAN [address] [address] 05/05/2025 17:28:46 05/06/2025 08:21:27 Uterine size for dates discrepancy 735463328 O26.843 Z3A.32 [id number] JOSEY AKERS MD [facility] [address],[facility] [address] 05/07/2025 16:36:41 05/07/2025 17:51:50 Third trimester 56760417 Z34.03 [id number] JOSEY AKERS MD [facility] [address],[facility] [place] [address] 05/20/2025 09:16:40 05/20/2025 10:18:45 Heartburn 94175389 R12 74964 Gestation period, 34 weeks 66412346 Z3A.34 [id number] JOSEY AKERS MD [facility] [address],[place] [address] 06/03/2025 15:12:33 06/03/2025 16:11:36 Third trimester 70199382 Z34.03 [id number] Health Concerns Section Related Observation LastModified by Organization Detai ls LastModified Time None Recorded Concern Status LastModified by Organization Details LastModified Time None Recorded Payers Encounter Date Sequence Insurance Name Policy Number Policy Romero Covered Member ID Romero Member ID Guarantor Name 06/03/2025 1 [employer] [id number] Patrice Lopez [id number] Teagan Lopez Notes Date Note Type Note Provider Name and Address Organization Details Recorded Time 06/03/2025 text/html Generic HPI TemplateReported by Patient JOSEY AKERS MD [address], [place], [address], [facility] 06/03/2025 16:08:54 OBGyn Episode Ob Episode Information Episode Created Date Number of Fetuses Patient Bloodtype Patient rh Status Prepregnancy Weight lbs Domestic Partner Domestic Partner Phone Father Name Blower Operator Status 12/18/19 25 1 O Positive 144 Patrice Lopez OPEN Fetus Data First Name Last Name Admitted to NICU Weight (g) Sex Living Outcome Pediatric Complications Fetus ID Race Codes Race Delivery Type [id number] Problems Problem Notes Problem Name Start Date End Date Resolution Snomed Code Not e Migraine 12/17/2024 10616867 on Qulipt a, limited data in , [...] Date Ultra Sound Latest Days Gestation 0 [email or web address] 12/19/2024 06/26/20 25 0 Pre-marcial Flowsheet Flowsheet Date 12/17/2024 Tam Score Blood Edema Fundus Height Fundus Units Glucose Ketones Leukocytes Nitrite Labor Signs Protein Cervic Dilation Cervic Effacement Cervic Station Type Weight in lbs Pre/Post Dialysis Refused Weight 145.829735640877 BP Diastolic BP Location Tested BP Systolic BP Type 74 L arm 111 sitting Fetus Heart Rate Present A Present Fetus Movement Comments [facility] Hx of migraines, on Qulipta, seeing neurologist. Discussed lack of studies of Qulipta in ; animal studies available show increased risk of defects only at extremely high doses (130mg/kg/d vs patient's dose 30mg/d). Neuro appointment on Monday, also offered M referral for further evaluation of Qulipta safety. [...] Type Weight in lbs Pre/Post Dialysis Refused 148.258814794855 BP Diastolic BP Location Tested BP Systolic [...] Type Weight in lbs Pre/Post Dialysis Refused 157.338046361598 BP Diastolic BP Location Tested BP Systolic [...] Weight in lbs Pre/Post Dialysis Refused Weight 165.719582797303 BP Diastolic BP Location Tested BP Systolic [...] Weight in lbs Pre/Post Dialysis Refused Weight 172.106769260890 BP Diastolic BP Location Tested BP Systolic [...] Weight in lbs Pre/Post Dialysis Refused Weight 174.099965510230 BP Diastolic BP Location Tested BP Systolic [...] Type Weight in lbs Pre/Post Dialysis Refused 178.034281501085 BP Diastolic BP Location Tested BP Systolic [...] Type Weight in lbs Pre/Post Dialysis Refused 182.905346674696 BP Diastolic BP Location Tested BP Systolic [...] Weight in lbs Pre/Post Dialysis Refused Weight 185.482465545303 BP Diastolic BP Location Tested BP Systolic [...] Weight in lbs Pre/Post Dialysis Refused Weight 186.432780278522 BP Diastolic BP Location Tested BP Systolic [...] Weight in lbs Pre/Post Dialysis Refused Weight 188.051641241287 BP Diastolic BP Location Tested BP Systolic [...]
--- OUTSIDE RECORDS SUMMARY | 2025-06-19 17:01 | XMS_ITS | Continuity of Care Document ---
Author Organization [facility] Address [address] [place] [address] Care Team Providers Care Underwriting Director Name Role Phone DOUG PETER Primary Care [...] normal Not Available Alex [address]ree[address], [place], [address], 12/24/2024 22:07:33 12/25/19 25 12/24/2024 [UNIT Y] ANEUP LOIDY NIPT 22Q11.2 microdeletio n LOW RISK <1 in 10,000 normal Not Available [facility] [address], [place], [address], 12/24/2024 22:07:33 12/25/19 25 12/24/2024 [UNIT Y] ANEUP LOIDY NIPT sex chromosome aneuploidy NOT DETECT ED normal Not Available [facility] [address], [place], [address], 12/24/2024 22:07:33 12/25/19 25 12/24/2024 [UNIT Y] ANEUP LOIDY NIPT monosomy X LOW RISK <1 in 10,000 normal Not Available [facility] [address], [place], [address], 12/24/2024 22:07:33 12/25/19 25 12/24/2024 [UNIT Y] ANEUP LOIDY NIPT trisomy 13 LOW RISK <1 in 10,000 normal Not Available [facility] [address], [place], [address], 12/24/2024 22:07:33 12/25/19 25 12/24/2024 [UNIT Y] ANEUP LOIDY NIPT trisomy 18 LOW RISK <1 in 10,000 normal Not Available [facility] [address], [place], [address], 12/24/2024 22:07:33 12/25/19 25 12/24/2024 [UNIT Y] ANEUP LOIDY NIPT trisomy 21 LOW RISK <1 in 10,000 normal Not Available [facility] [address], [place], [address], 12/24/2024 22:07:33 12/25/19 25 12/24/2024 [UNIT Y] ANEUP LOIDY NIPT sex FEMALE normal Not Available [facility] [address], [place], [address], 12/24/2024 22:07:33 12/25/19 25 12/24/2024 [UNIT Y] ANEUP LOIDY NIPT gestation SINGLE TON normal Not Available [facility] [address], [place], [address], 12/24/2024 22:07:33 12/25/19 25 12/24/2024 [UNIT Y] ANEUP ASHLEY NIPT for detailed report, see pdf See PDF normal Not Available [facility] [address], [place], [address], 12/24/2024 22:07:33 12/26/19 25 12/25/2024 [UNIT Y] NIRAJ JULIENNE Fowler sickle cell disease/beta -thalassemia /hemoglobino pathies carrier screen NEGATI VE normal Not Available [facility] [address], [place], [address], 12/25/2024 22:03:15 12/26/19 25 12/25/2024 [UNIT Y] NIRAJ JULIENNE Fowler alpha-thalas semia carrier screen NEGATI VE normal Not Available [facility] [address], [place], [address], 12/25/2024 22:03:15 12/26/19 25 12/25/2024 [UNIT Y] NIRAJ JULIENNE Fowler cystic fibrosis carrier screen NEGATI VE normal Not Available [facility] [address], [place], [address], 12/25/2024 22:03:15 12/26/19 25 12/25/2024 [UNIT Y] NIRAJ Fowler spinal muscular atrophy carrier screen NEGATI VE 2 SMN1 copies , SNP not presen t normal Not Available [facility] [address], [place], [address], 12/25/2024 22:03:15 12/26/19 25 12/25/2024 [UNIT Y] NIRAJ Fowler for detailed report, see pdf See PDF normal Not Available [facility] [address], [place], [address], 12/25/2024 22:03:15 12/18/19 25 12/17/2024 CULTU RE: URINE result report SEE RESULT S BELOW Test: Cultu re: Urine Speci men Sourc e: Urine - Clean Catch Speci men Type: Urine Speci men Date: 2024 1312 Resul t Date: 2024 2142 Resul t Statu s: Final resul t Abnor mal: No Resul ting Lab: [facility] [address] [facility] [address] Tel: CULTU RE ----- ----- ----- --- No growt h in 1 day (dete ction level of 10,00 0 colon ies / ml.) Not Available [facility] (Lab) [address], [place], [address], 12/18/2024 22:45:51 12/18/1912/17/2024 CBC W/DIF F WBC 8.4 10'3/ uL 3.5-10 .5 Not Available [facility] (Lab) [address] [place], [address], 12/19/2024 09:54:28 12/18/1912/17/2024 CBC W/DIF F RBC 4.57 10'6/ uL (based on docume nted legal sex) 3.80-5 .20 Not Available [facility] (Lab) [address] [place], [address], 12/19/2024 09:54:28 12/18/1912/17/2024 CBC W/DIF F HGB 14.2 g/dL (based on docume nted legal sex) 11.6-1 5.4 Not Available [facility] (Lab) [address] [place], [address], 12/19/2024 09:54:28 12/18/1912/17/2024 CBC W/DIF F HCT 43.1 % (based on docume nted legal sex) 34.0-4 5.0 Not Available [facility] (Lab) [address] [place], [address], 12/19/2024 09:54:28 12/18/19 25 12/17/2024 CBC W/DIF F MCV 94.3 fL 80.0-9 9.0 Not Available [facility] (Lab) [address], [place], [address], 12/19/2024 09:54:28 12/18/19 25 12/17/2024 CBC W/DIF F MCH 31.1 pg 27.0-3 4.0 Not Available [facility] (Lab) [address], [place], [address], 12/19/2024 09:54:28 12/18/19 25 12/17/2024 CBC W/DIF F MCHC 32.9 g/dL 32.0-3 5.5 Not Available [facility] (Lab) [address], [place], [address], 12/19/2024 09:54:28 12/18/19 25 12/17/2024 CBC W/DIF F RDW 12.5 % 11.0-1 5.0 Not Available [facility] (Lab) [address], [place], [address], 12/19/2024 09:54:28 12/18/19 25 12/17/2024 CBC W/DIF F plt 263 10'3/ uL 150-40 0 Not Available [facility] (Lab) [address], [place], [address], 12/19/2024 09:54:28 12/18/19 25 12/17/2024 CBC W/DIF F MPV 11.1 fL 8.8-12 .1 Not Available [facility] (Lab) [address], [place], [address], 12/19/2024 09:54:28 12/18/19 25 12/17/2024 CBC W/DIF F NRBC's 0.0 % 0.0 Not Available [facility] (Lab) [address], [place], [address], 12/19/2024 09:54:28 12/18/19 25 12/17/2024 CBC W/DIF F absolute NRBCs 0.0 10'3/ uL no refere nce range establ ished Not Available [facility] (Lab) [address], [place], [address], 12/19/2024 09:54:28 12/18/19 25 12/17/2024 CBC W/DIF F neutrophils 70.6 % 34.0-7 3.0 Not Available [facility] (Lab) [address], [place], [address], 12/19/2024 09:54:28 12/18/19 25 12/17/2024 CBC W/DIF F lymphocytes 17.6 % 15.0-5 0.0 Not Available [facility] (Lab) [address], [place], [address], 12/19/2024 09:54:28 12/18/19 25 12/17/2024 CBC W/DIF F monocytes 8.1 % 1.0-15 .0 Not Available [facility] (Lab) [address], [place], [address], 12/19/2024 09:54:28 12/18/19 25 12/17/2024 CBC W/DIF F eosinophils 2.6 % 0.0-8. 0 Not Available [facility] (Lab) [address], [place], [address], 12/19/2024 09:54:28 12/18/19 25 12/17/2024 CBC W/DIF F basophils 0.7 % 0.0-2. 0 Not Available [facility] (Lab) [address], [place], [address], 12/19/2024 09:54:28 12/18/19 25 12/17/2024 CBC W/DIF [...] separ ately if prese nt. Not Available [facility] (Lab) [address], [place], [address], 12/19/2024 09:54:28 12/18/1912/17/2024 CBC W/DIF F absolute neutrophils 5.9 10'3/ uL 1.5-8. 0 Not Available [facility] (Lab) [address], [place], [address], 12/19/2024 09:54:28 12/18/1912/17/2024 CBC W/DIF F absolute lymphocytes 1.5 10'3/ uL 1.0-4. 0 Not Available [facility] (Lab) [address], [place], [address], 12/19/2024 09:54:28 12/18/19 25 12/17/2024 CBC W/DIF F absolute monocytes 0.7 10'3/ uL 0.2-1. 0 Not Available [facility] (Lab) [address], [place], [address], 12/19/2024 09:54:28 12/18/19 25 12/17/2024 CBC W/DIF F absolute eosinophils 0.2 10'3/ uL 0.0-0. 6 Not Available [facility] (Lab) [address], [place], [address], 12/19/2024 09:54:28 12/18/19 25 12/17/2024 CBC W/DIF F absolute basophils 0.1 10'3/ uL 0.0-0. 3 Not Available [facility] (Lab) [address] [place], [address], 12/19/2024 09:54:28 12/18/1912/17/2024 CBC W/DIF F absolute immature granulocytes 0.0 10'3/ uL 0.00-0 .10 : Not Hispa maia or Latin o Refer ence range s for nonbi nary/ inter sex or unspe cifie d gende r patie nts have not been estab lishe d. Sharmila e refer [facility] for range s estab lishe d for cisge nder patie nts and evalu ate in the clini norbert rob xt of the indiv idual patie nt: https ://la bhand book. nm.or g/gen derx Not Available [facility] (Lab) [address], [place], [address], 12/19/2024 09:54:28 12/18/1912/17/2024 HIV 1/2 ANTIG EN/AN TIBOD Y, REFLE X CONFI RMATI ON HIV antigen/anti body Nonrea ctive nonrea ctive : Not Hispa maia or Latin o HIV-1 antig en and HIV-1 /HIV- 2 antib odies were not detec hiren. No labor atory evide nce of HIV infec tion. Not Available [facility] (Lab) [address], [place], [address], 12/19/2024 09:54:28 12/18/1912/17/2024 HEPAT ITIS B SURFA [...] Hispa maia or Latin o Not Available [facility] (Lab) [address], [place], [address], 12/19/2024 09:54:29 12/18/1912/17/2024 HEPAT ITIS C ANTIB HERMELINDA SCREE N, REFLE X TO CONFI RMATI ON hepatitis C antibody Non-re active non-re active Antib odies to HCV Not Detec hiren, does not exclu de the possi bilit y of expos ure to HCV. : Not Hispa maia or Latin o Not Available [facility] (Lab) [address], [place], [address], 12/19/2024 09:54:29 12/18/19 25 12/17/2024 RUBEL LA IGG ANTIB HERMELINDA, QUANT rubella antibodies, IgG Reacti ve reacti ve Not Available [facility] (Lab) [address], [place], [address], 12/19/2024 09:54:29 12/18/19 25 12/17/2024 RUBEL LA IGG ANTIB HERMELINDA, QUANT rubella antibodies, IgG quant 15.1 IU/mL >=10 : Not Hispa maia or Latin o Non-r eacti ve (Non- Immun e) <10 IU/mL React bridger (Immu ne) > or = 10 IU/mL Not Available [facility] (Lab) [address], [place], [address], 12/19/2024 09:54:29 12/18/19 25 12/17/2024 TYPE/ RH/SC REEN ABO/Rh type O POS Not Available [facility] (Lab) [address], [place], [address], 12/19/2024 09:54:30 12/18/19 25 12/17/2024 TYPE/ RH/SC REEN antibody screen NEG Not Available [facility] (Lab) [address], [place], [address], 12/19/2024 09:54:30 12/18/19 25 12/17/2024 TYPE/ RH/SC REEN exp date 2024 23:59 Not Available [facility] (Lab) [address], [place], [address], 12/19/2024 09:54:30 12/18/19 25 12/17/2024 HEMOG LOBIN [...] >8.0% Actio n sugge sted Not Available [facility] (Lab) [address], [place], [address], 12/19/2024 09:54:30 12/18/1912/17/2024 RPR SCREE N, REFLE X TITER /CONF IRMAT ION RPR qualitative Nonrea ctive nonrea ctive : Not Hispa maia or Latin o Not Available [facility] (Lab) [address], [place], [address], 12/19/2024 09:54:30 12/18/1912/17/2024 LEAD, BLOOD (ADUL T/PED IATRI C) lead, whole blood <1.0 mcg/d L <3.5 See Note 1 Giuliano sis was perfo rmed by Parth López ed Plasm a Mass Spect romet ry (ICPM S) Note 1 This test was devel oped and its giuliano tical perfo rmanc e higinio cteri stics have been deter mined by [facility]. It has not been clear ed or appro rico by the FDA. This assay has been valid ated pursu ant to the CLIA regul ation s and is used for clini norbert purpo ses. : Not Hispa maia or Latin o Perfo rming Organ izati on Infor matgeorge n: Site ID: CB Name: [facility]-Bret Lynne Addre ss: [id number] [place] [address] Direc tor: Helio ny V Ruby s Not Available [facility] (Lab) [address], [place], [address], 12/19/2024 09:54:31 12/18/19 25 12/17/2024 drug scree n, urine Amphetamines : negati ve Not Available [facility] [address], [place], [address], 12/17/2024 11:29:48 12/18/19 25 12/17/2024 drug scree n, urine Cannabinoids : negati ve Not Available [facility] [address], [place], [address], 12/17/2024 11:29:48 12/18/19 25 12/17/2024 drug scree n, urine Cocaine: negati ve Not Available [facility] [address], [place], [address], 12/17/2024 11:29:48 12/18/19 25 12/17/2024 drug scree n, urine Opiates: negati ve Not Available [facility] [address], [place], [address], 12/17/2024 11:29:48 12/18/19 25 12/17/2024 drug scree n, urine Barbiturates : negati ve Not Available [facility] [address], [place], [address], 12/17/2024 11:29:48 12/18/19 25 12/17/2024 drug scree n, urine Benzodiazepi benton: negati ve Not Available [facility] [address], [place], [address], 12/17/2024 11:29:48 04/08/20 25 04/08/2025 HEMAT OCRIT (HCT) HCT 42.0 % (based on docume nted legal sex) 34.0-4 5.0 Not Available [facility] (Lab) [address], [place], [address], 04/09/2025 11:41:17 04/08/20 25 04/08/2025 HEMOG LOBIN (HGB) HGB 13.6 g/dL (based on docume nted legal sex) 11.6-1 5.4 Not Available [facility] (Lab) [address], [place], [address], 04/09/2025 11:41:18 04/08/20 25 04/08/2025 HIV 1/2 ANTIG EN/AN TIBOD Y, REFLE X CONFI RMATI ON HIV antigen/anti body Nonrea ctive nonrea ctive HIV-1 antig en and HIV-1 /HIV- 2 antib odies were not detec hiren. No labor atory evide nce of HIV infec tion. Not Available [facility] (Lab) [address], [place], [address], 04/09/2025 11:41:18 04/08/2004/08/2025 GTT - GESTA ESTHER L SCREE N, ACOG OB glucose, 1 hour screen 109 mg/dL 70-135 Not Available [facility] (Lab) [address], [place], [address], 04/09/2025 11:41:18 04/08/20 25 04/08/2025 RPR SCREE N, REFLE X TITER /CONF IRMAT ION RPR qualitative Nonrea ctive nonrea ctive Not Available [facility] (Lab) [address] [place], [address], 04/09/2025 11:41:19 04/08/20 25 04/08/2025 WOMEN 'S HEALT H SWAB PLUS, TIFFANY bacterial vaginosis (bv), tma Negati ve negati ve Not Available [facility] (Lab) [address] [place], [address], 04/09/2025 15:24:57 04/08/20 25 04/08/2025 WOMEN 'S HEALT H SWAB PLUS, TIFFANY cristino species, tma Positi ve negati ve abnormal Not Available [facility] (Lab) [address], [place], [address], 04/09/2025 15:24:57 04/08/20 25 04/08/2025 [facility]OM[facility] '[facility] H SWAB PLUS, TIFFANY cristino glabrata, tma Negati ve negati ve Not Available [facility] (Lab) [address] [place], [address], 04/09/2025 15:24:57 04/08/20 25 04/08/2025 [facility] SWAB PLUS, TIFFANY trichomonas vaginalis, tma Negati ve negati ve Not Available [facility] (Lab) [address], [place], [address], 04/09/2025 15:24:57 04/08/20 25 04/08/2025 [facility] SWAB PLUS, TIFFANY chlamydia trachomatis, PCR Negati ve negati ve Not Available [facility] (Lab) [address] [place], [address], 04/09/2025 15:24:57 04/08/20 25 04/08/2025 [facility] SWAB PLUS, TIFFANY neisseria gonorrhoeae, PCR [...] ded in this panel . Not Available [facility] (Lab) [address], [place], [address], 04/09/2025 15:24:57 12/18/19 25 12/17/2024 US, obste tric, nucha l trans lucen cy No observ ation record ed. [email or web address] [facility] [address], [place], [address], 12/17/2024 17:14:02 12/18/19 25 12/17/2024 US, obste tric, nucha l trans lucen cy No observ ation record ed. Meena [address], [place], [address], 12/19/2024 10:22:49 02/15/20 25 02/14/2025 US, obste tric, 2nd or 3rd trime ster No observ ation record ed. [email or web address] [address], [place], [address], 02/14/2025 17:07:31 02/15/20 25 02/14/2025 US, obste tric, 2nd or 3rd trime ster No observ ation record ed. [email or web address] [address], [place], [address], 02/14/2025 16:04:18 05/05/20 25 05/05/2025 US, obste tric, follo w-up No observ ation record ed. [email or web address] [facility] [address], [place], [address], 05/05/2025 18:49:46 05/05/20 25 05/05/2025 US, obste tric, follo w-up No observ ation record ed. [email or web address] [address], [place], [address], 06/02/2025 11:18:53 Result Notes None recorded. Problems Name Problem SNOMED Code Status Onset Date Resolution Date Notes Provider Name and Address Organization Details Recorded Time 31060206 Active 2024 Gwen Rene null, [facility] 10:44:59 Migraine 86141090 Active 2024 on Qulipta, limited data in , declined MFM consultati on; follows with neurology JOSEY AKERS MD [address], [place], [address], [facility] 5 11:34:02 Problem Notes None recorded. Procedures Surgical History Date Name Laterality Status Provider Name and Address Organization Details Recorded Time 05/10/2023 Date of Last Pap Smear completed Diane Denton [facility] 06/20/2023 11:38:20 Imaging Results None recorded. [...] completed Not Available Not Available Not Available [facility] ODT 75 mg disintegrat ing tablet DISSOLVE [...] and Address Organization Details Last Updated DateTime 04/08/2025 163.83 cm 29.1 kg/m2 64250.89 g 126/78 mm[Hg] Sandra Patrick [facility] 04/08/2025 09:38:19 Social History Question Answer Notes LastModified by [...] Or The Highest Degree You Have Received? 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 Occasional Information not available 05/03/2023 Mental Status Question Answer Note LastModified by Organization D etails LastModified Time Do you feel stressed (tense, restless, nervous, or anxious, or unable to sleep at night)? [id number] Information not available 05/03/2023 Family History Nothing [...] ICD10 Code Diagnosis IMO Codes Diagnosis Note [id number] JOSEY AKERS MD [facility] [address] [address] 03/11/2025 10:06:43 03/11/2025 14:40:50 Second trimester 64131588 Z34.02 [id number] JOSEY AKERS MD [facility] [address] [address] 04/08/2025 09:24:00 04/08/2025 10:05:17 Acute vaginitis 92860966 N76.0 64490 Gestation period, 28 weeks 44273436 Z3A.28 [id number] Health Concerns Section Related Observation LastModified by Organization Detai ls LastModified Time None Recorded Concern Status LastModified by Organization Details LastModified Time None Recorded Payers Encounter Date Sequence Insurance Name Policy Number Policy Romero Covered Member ID Romero Member ID Guarantor Name 04/08/2025 1 [facility] [id number] Patrice Lopez [id number] Teagan Lopez Notes Date Note Type Note Provider Name and Address Organization Details Recorded Time 04/08/2025 text/html Generic HPI TemplateReported by Patient JOSEY AKERS MD [address], [place], [address], [facility] 04/08/2025 10:00:26 OBGyn Episode Ob Episode Information Episode Created Date Number of Fetuses Patient Bloodtype Patient rh Status Prepregnancy Weight lbs Domestic Partner Domestic Partner Phone Father Name Activity Director Status 12/18/19 25 1 O Positive 144 Patrice Pickell OPEN Fetus Data First Name Last Name Admitted to NICU Weight (g) Sex Living Outcome Pediatric Complications Fetus ID Race Codes Race Delivery Type [id number] Problems Problem Notes Problem Name Start Date End Date Resolution Snomed Code Not e Migraine 12/17/2024 [id number] on Qulipt a, limited data in , [...] Date Ultra Sound Latest Days Gestation 0 [email or web address] 12/19/2024 06/26/20 25 0 Pre- Flowsheet Flowsheet Date 12/17/2024 Tam Score Blood Edema Fundus Height Fundus Units Glucose Ketones Leukocytes Nitrite Labor Signs Protein Cervic Dilation Cervic Effacement Cervic Station Type Weight in lbs Pre/Post Dialysis Refused Weight 145.322044647073 BP Diastolic BP Location Tested BP Systolic BP Type 74 L arm 111 sitting Fetus Heart Rate Present A Present Fetus Movement Comments Patient presents to [facility] care. Hx of migraines, on Qulipta, [...] Type Weight in lbs Pre/Post Dialysis Refused 148.309664107132 BP Diastolic BP Location Tested BP Systolic [...] Type Weight in lbs Pre/Post Dialysis Refused 157.655318880455 BP Diastolic BP Location Tested BP Systolic [...] Weight in lbs Pre/Post Dialysis Refused Weight 165.033799860831 BP Diastolic BP Location Tested BP Systolic [...] Weight in lbs Pre/Post Dialysis Refused Weight 172.423522818731 BP Diastolic BP Location Tested BP Systolic [...] Weight in lbs Pre/Post Dialysis Refused Weight 174.982030659796 BP Diastolic BP Location Tested BP Systolic [...] Type Weight in lbs Pre/Post Dialysis Refused 178.970978315017 BP Diastolic BP Location Tested BP Systolic [...] Type Weight in lbs Pre/Post Dialysis Refused 182.114652958274 BP Diastolic BP Location Tested BP Systolic [...] Weight in lbs Pre/Post Dialysis Refused Weight 185.228900560923 BP Diastolic BP Location Tested BP Systolic [...] Weight in lbs Pre/Post Dialysis Refused Weight 186.311942370788 BP Diastolic BP Location Tested BP Systolic [...] Weight in lbs Pre/Post Dialysis Refused Weight 188.396716337311 BP Diastolic BP Location Tested BP Systolic [...]
--- OUTSIDE RECORDS SUMMARY | 2025-06-19 17:01 | XMS_ITS | Continuity of Care Document ---
Author Organization [facility] Address [address] [place] [address] Care Team Providers Care Processing Technologist Name Role Phone DOUG PETER Primary Care [...] normal Not Available [address], [place], [address], 12/24/2024 22:07:33 12/25/19 25 12/24/2024 [UNIT Y] ANEUP LOIDY NIPT 22Q11.2 microdeletio n LOW RISK <1 in 10,000 normal Not Available [facility] [address], [place], [address], 12/24/2024 22:07:33 12/25/19 25 12/24/2024 [UNIT Y] ANEUP LOIDY NIPT sex chromosome aneuploidy NOT DETECT ED normal Not Available [facility] [address], [place], [address], 12/24/2024 22:07:33 12/25/19 25 12/24/2024 [UNIT Y] ANEUP LOIDY NIPT monosomy X LOW RISK <1 in 10,000 normal Not Available [facility] [address], [place], [address], 12/24/2024 22:07:33 12/25/19 25 12/24/2024 [UNIT Y] ANEUP LOIDY NIPT trisomy 13 LOW RISK <1 in 10,000 normal Not Available [facility] [address], [place], [address], 12/24/2024 22:07:33 12/25/19 25 12/24/2024 [UNIT Y] ANEUP LOIDY NIPT trisomy 18 LOW RISK <1 in 10,000 normal Not Available [facility] [address], [place], [address], 12/24/2024 22:07:33 12/25/19 25 12/24/2024 [UNIT Y] ANEUP LOIDY NIPT trisomy 21 LOW RISK <1 in 10,000 normal Not Available [facility] [address], [place], [address], 12/24/2024 22:07:33 12/25/19 25 12/24/2024 [UNIT Y] ANEUP LOIDY NIPT sex FEMALE normal Not Available [facility] [address], [place], [address], 12/24/2024 22:07:33 12/25/19 25 12/24/2024 [UNIT Y] ANEUP LOIDY NIPT gestation SINGLE TON normal Not Available [facility] [address], [place], [address], 12/24/2024 22:07:33 12/25/19 25 12/24/2024 [UNIT Y] ANEUP ASHLEY NIPT for detailed report, see pdf See PDF normal Not Available [facility] [address], [place], [address], 12/24/2024 22:07:33 12/26/19 25 12/25/2024 [UNIT Y] NIRAJ JULIENNE Fowler sickle cell disease/beta -thalassemia /hemoglobino pathies carrier screen NEGATI VE normal Not Available [facility] [address], [place], [address], 12/25/2024 22:03:15 12/26/19 25 12/25/2024 [UNIT Y] NIRAJ JULIENNE Fowler alpha-thalas semia carrier screen NEGATI VE normal Not Available [facility] [address], [place], [address], 12/25/2024 22:03:15 12/26/19 25 12/25/2024 [UNIT Y] NIRAJ JULIENNE Fowler cystic fibrosis carrier screen NEGATI VE normal Not Available [facility] [address], [place], [address], 12/25/2024 22:03:15 12/26/19 25 12/25/2024 [UNIT Y] NIRAJ Fowler spinal muscular atrophy carrier screen NEGATI VE 2 SMN1 copies , SNP not presen t normal Not Available [facility] [address], [place], [address], 12/25/2024 22:03:15 12/26/19 25 12/25/2024 [UNIT Y] NIARJ Fowler for detailed report, see pdf See PDF normal Not Available [facility] [address], [place], [address], 12/25/2024 22:03:15 12/18/19 25 12/17/2024 CULTU RE: URINE result report SEE RESULT S BELOW Test: Cultu re: Urine Speci men Sourc e: Urine - Clean Catch Speci men Type: Urine Speci men Date: 2024 1312 Resul t Date: 2024 2142 Resul t Statu s: Final resul t Abnor mal: No Resul ting Lab: [facility] [address] [facility] [address] Tel: CULTU RE ----- ----- ----- --- No growt h in 1 day (dete ction level of 10,00 0 colon ies / ml.) Not Available [facility] (Lab) [address] [facility], [place], [address], 12/18/2024 22:45:51 12/18/1912/17/2024 CBC W/DIF F WBC 8.4 10'3/ uL 3.5-[address] [facility] (Lab) [address] [place], [address], 12/19/2024 09:54:28 12/18/1912/17/2024 CBC W/DIF F RBC 4.57 10'6/ uL (based on docume nted legal sex) 3.80-[address] [facility] (Lab) [address] [place], [address], 12/19/2024 09:54:28 12/18/1912/17/2024 CBC W/DIF F HGB 14.2 g/dL (based on docume nted legal sex) 11.6-[address] [facility] (Lab) [address] [place], [address], 12/19/2024 09:54:28 12/18/1912/17/2024 CBC W/DIF F HCT 43.1 % (based on docume nted legal sex) 34.0-[address] [facility] (Lab) [address] [place], [address], 12/19/2024 09:54:28 12/18/19 25 12/17/2024 CBC W/DIF F MCV 94.3 fL 80.0-[address] [facility] (Lab) [address], [place], [address], 12/19/2024 09:54:28 12/18/19 25 12/17/2024 CBC W/DIF F MCH 31.1 pg 27.0-[address] [facility] (Lab) [address], [place], [address], 12/19/2024 09:54:28 12/18/19 25 12/17/2024 CBC W/DIF F MCHC 32.9 g/dL 32.0-[address] [facility] (Lab) [address], [place], [address], 12/19/2024 09:54:28 12/18/19 25 12/17/2024 CBC W/DIF F RDW 12.5 % 11.0-[address] [facility] (Lab) [address], [place], [address], 12/19/2024 09:54:28 12/18/19 25 12/17/2024 CBC W/DIF F plt 263 10'3/ uL 150-[address] [facility] (Lab) [address], [place], [address], 12/19/2024 09:54:28 12/18/19 25 12/17/2024 CBC W/DIF F MPV 11.1 fL 8.8-[address] [facility] (Lab) [address], [place], [address], 12/19/2024 09:54:28 12/18/19 25 12/17/2024 CBC W/DIF F NRBC's 0.0 % 0.[address] [facility] (Lab) [address], [place], [address], 12/19/2024 09:54:28 12/18/19 25 12/17/2024 CBC W/DIF F absolute NRBCs 0.0 10'3/ uL no refere nce range establ ished Not Available [facility] (Lab) [address], [place], [address], 12/19/2024 09:54:28 12/18/19 25 12/17/2024 CBC W/DIF F neutrophils 70.6 % 34.0-[address] [facility] (Lab) [address] [facility], [place], [address], 12/19/2024 09:54:28 12/18/19 25 12/17/2024 CBC W/DIF F lymphocytes 17.6 % 15.0-[address] [facility] (Lab) [address] [facility], [place], [address], 12/19/2024 09:54:28 12/18/19 25 12/17/2024 CBC W/DIF F monocytes 8.1 % 1.0-[address] [facility] (Lab) [address] [facility], [place], [address], 12/19/2024 09:54:28 12/18/19 25 12/17/2024 CBC W/DIF F eosinophils 2.6 % 0.0-8. [address] [facility] (Lab) [address] [facility], [place], [address], 12/19/2024 09:54:28 12/18/19 25 12/17/2024 CBC W/DIF F basophils 0.7 % 0.0-2. [address] [facility] (Lab) [address] [facility], [place], [address], 12/19/2024 09:54:28 12/18/19 25 12/17/2024 CBC W/DIF [...] separ ately if prese nt. Not Available [facility] (Lab) [address] [facility], [place], [address], 12/19/2024 09:54:28 12/18/1912/17/2024 CBC W/DIF F absolute neutrophils 5.9 10'3/ uL 1.5-8. [address] [facility] (Lab) [address] [facility], [place], [address], 12/19/2024 09:54:28 12/18/1912/17/2024 CBC W/DIF F absolute lymphocytes 1.5 10'3/ uL 1.0-4. [address] [facility] (Lab) [address] [facility], [place], [address], 12/19/2024 09:54:28 12/18/19 25 12/17/2024 CBC W/DIF F absolute monocytes 0.7 10'3/ uL 0.2-1. [address] [facility] (Lab) [address] [facility], [place], [address], 12/19/2024 09:54:28 12/18/19 25 12/17/2024 CBC W/DIF F absolute eosinophils 0.2 10'3/ uL 0.0-0. [address] [facility] (Lab) [address] [facility], [place], [address], 12/19/2024 09:54:28 12/18/19 25 12/17/2024 CBC W/DIF F absolute basophils 0.1 10'3/ uL 0.0-0. [address] [facility] (Lab) [address] [place], [address], 12/19/2024 09:54:28 12/18/1912/17/2024 CBC W/DIF F absolute immature granulocytes 0.0 10'3/ uL 0.00-0 .10 : Not Hispa maia or Latin o Refer ence range s for nonbi nary/ inter sex or unspe cifie d gende r patie nts have not been estab lishe d. Sharmila e [facility] for range s estab lishe d for cisge nder patie nts and evalu ate in the clini norbert rob xt of the indiv idual patie nt: https ://la bhand book. nm.or g/gen derx Not Available [facility] (Lab) [address] [facility], [place], [address], 12/19/2024 09:54:28 12/18/1912/17/2024 HIV 1/2 ANTIG EN/AN TIBOD Y, REFLE X CONFI RMATI ON HIV antigen/anti body Nonrea ctive nonrea ctive : Not Hispa maia or Latin o HIV-1 antig en and HIV-1 /HIV- 2 antib odies were not detec hiren. No labor atory evide nce of HIV infec tion. Not Available [facility] (Lab) [address] [facility], [place], [address], 12/19/2024 09:54:28 12/18/1912/17/2024 HEPAT ITIS B SURFA [...] Hispa maia or Latin o Not Available [facility] (Lab) [address] [facility], [place], [address], 12/19/2024 09:54:29 12/18/1912/17/2024 HEPAT ITIS C ANTIB HERMELINDA SCREE N, REFLE X TO CONFI RMATI ON hepatitis C antibody Non-re active non-re active Antib odies to HCV Not Detec hiren, does not exclu de the possi bilit y of expos ure to HCV. : Not Hispa maia or Latin o Not Available [facility] (Lab) [address], [place], [address], 12/19/2024 09:54:29 12/18/19 25 12/17/2024 RUBEL LA IGG ANTIB HERMELINDA, QUANT rubella antibodies, IgG Reacti ve reacti ve Not Available [facility] (Lab) [address], [place], [address], 12/19/2024 09:54:29 12/18/19 25 12/17/2024 RUBEL LA IGG ANTIB HERMELINDA, QUANT rubella antibodies, IgG quant 15.1 IU/mL >=10 : Not Hispa maia or Latin o Non-r eacti ve (Non- Immun e) <10 IU/mL React bridger (Immu ne) > or = 10 IU/mL Not Available [facility] (Lab) [address], [place], [address], 12/19/2024 09:54:29 12/18/19 25 12/17/2024 TYPE/ RH/SC REEN ABO/Rh type O POS Not Available [facility] (Lab) [address], [place], [address], 12/19/2024 09:54:30 12/18/19 25 12/17/2024 TYPE/ RH/SC REEN antibody screen NEG Not Available [facility] (Lab) [address], [place], [address], 12/19/2024 09:54:30 12/18/19 25 12/17/2024 TYPE/ RH/SC REEN exp date 2024 23:[address] [facility] (Lab) [address], [place], [address], 12/19/2024 09:54:30 12/18/19 25 12/17/2024 HEMOG LOBIN [...] >8.0% Actio n sugge sted Not Available [facility] (Lab) [address] [facility], [place], [address], 12/19/2024 09:54:30 12/18/1912/17/2024 RPR SCREE N, REFLE X TITER /CONF IRMAT ION RPR qualitative Nonrea ctive nonrea ctive : Not Hispa maia or Latin o Not Available [facility] (Lab) [address] [facility], [place], [address], 12/19/2024 09:54:30 12/18/1912/17/2024 LEAD, BLOOD (ADUL T/PED IATRI C) lead, whole blood <1.0 mcg/d L <3.5 See Note 1 Giuliano sis was perfo rmed by Parth López ed Plasm a Mass Spect romet ry (ICPM S) Note 1 This test was devel oped and its giuliano tical perfo rmanc e higinio cteri stics have been deter mined by [employer]. It has not been clear ed or appro rico by the FDA. This assay has been valid ated pursu ant to the CLIA regul ation s and is used for clini norbert purpo ses. : Not Hispa maia or Latin o Perfo rming Organ izati on Infor matgeorge n: Site ID: CB Name: [employer] [facility]ret Lynne Addre ss: [address] [place] [address] Direc tor: Helio ny V Ruby s Not Available [facility] (Lab) [address] [facility], [place], [address], 12/19/2024 09:54:31 12/18/19 25 12/17/2024 drug scree n, urine Amphetamines : negati ve Not Available [facility] [address], [place], [address], 12/17/2024 11:29:48 12/18/19 25 12/17/2024 drug scree n, urine Cannabinoids : negati ve Not Available [facility] [address], [place], [address], 12/17/2024 11:29:48 12/18/19 25 12/17/2024 drug scree n, urine Cocaine: negati ve Not Available [facility] [address], [place], [address], 12/17/2024 11:29:48 12/18/19 25 12/17/2024 drug scree n, urine Opiates: negati ve Not Available [facility] [address], [place], [address], 12/17/2024 11:29:48 12/18/19 25 12/17/2024 drug scree n, urine Barbiturates : negati ve Not Available [facility] [address], [place], [address], 12/17/2024 11:29:48 12/18/19 25 12/17/2024 drug scree n, urine Benzodiazepi benton: negati ve Not Available [facility] [address], [place], [address], 12/17/2024 11:29:48 04/08/20 25 04/08/2025 HEMAT OCRIT (HCT) HCT 42.0 % (based on docume nted legal sex) 34.0-[address] [facility] (Lab) [address], [place], [address], 04/09/2025 11:41:17 04/08/20 25 04/08/2025 HEMOG LOBIN (HGB) HGB 13.6 g/dL (based on docume nted legal sex) 11.6-[address] [facility] (Lab) [address] [facility], [place], [address], 04/09/2025 11:41:18 04/08/20 25 04/08/2025 HIV 1/2 ANTIG EN/AN TIBOD Y, REFLE X CONFI RMATI ON HIV antigen/anti body Nonrea ctive nonrea ctive HIV-1 antig en and HIV-1 /HIV- 2 antib odies were not detec hiren. No labor atory evide nce of HIV infec tion. Not Available [facility] (Lab) [address] [facility], [place], [address], 04/09/2025 11:41:18 04/08/2004/08/2025 GTT - GESTA ESTHER L SCREE N, ACOG OB glucose, 1 hour screen 109 mg/dL 70-135 Not Available [facility] (Lab) [address] [facility], [place], [address], 04/09/2025 11:41:18 04/08/20 25 04/08/2025 RPR SCREE N, REFLE X TITER /CONF IRMAT ION RPR qualitative Nonrea ctive nonrea ctive Not Available [facility] (Lab) [address] [place], [address], 04/09/2025 11:41:19 04/08/20 25 04/08/2025 WOMEN 'S HEALT H SWAB PLUS, TIFFANY bacterial vaginosis (bv), tma Negati ve negati ve Not Available [facility] (Lab) [address] [place], [address], 04/09/2025 15:24:57 04/08/20 25 04/08/2025 WOMEN 'S HEALT H SWAB PLUS, TIFFANY cristino species, tma Positi ve negati ve abnormal Not Available [facility] (Lab) [address] [facility], [place], [address], 04/09/2025 15:24:57 04/08/20 25 04/08/2025 [facility] TIFFANY cristino glabrata, tma Negati ve negati ve Not Available [facility] (Lab) [address] [place], [address], 04/09/2025 15:24:57 04/08/20 25 04/08/2025 [facility], TIFFANY trichomonas vaginalis, tma Negati ve negati ve Not Available [facility] (Lab) [address] [facility], [place], [address], 04/09/2025 15:24:57 04/08/20 25 04/08/2025 [facility], TIFFANY chlamydia trachomatis, PCR Negati ve negati ve Not Available [facility] (Lab) [address] [place], [address], 04/09/2025 15:24:57 04/08/20 25 04/08/2025 [facility], TIFFANY neisseria gonorrhoeae, [...] ded in this panel . Not Available [facility] (Lab) [address] [facility], [place], [address], 04/09/2025 15:24:57 06/03/20 25 06/03/2025 CULTU RE: [...] t Abnor mal: No Resul ting Lab: [facility] [address] [facility] [address] Tel: CULTU RE ----- ----- ----- --- No Group B strep isola hiren at 2 days (new ctive broth enhan cemen t) Not Available [facility] (Lab) [address] [facility], [place], [address], 06/06/2025 14:22:10 12/18/19 25 12/17/2024 US, obste tric, nucha l trans lucen cy No observ ation record ed. [email or web address] [facility] [address], [place], [address], 12/17/2024 17:14:02 12/18/19 25 12/17/2024 US, obste tric, nucha l trans lucen cy No observ ation record ed. [email or web address] [facility] [address], [place], [address], 12/19/2024 10:22:49 02/15/20 25 02/14/2025 US, obste tric, 2nd or 3rd trime ster No observ ation record ed. [email or web address] [facility] [address], [place], [address], 02/14/2025 17:07:31 02/15/20 25 02/14/2025 US, obste tric, 2nd or 3rd trime ster No observ ation record ed. [facility] [address], [place], [address], 02/14/2025 16:04:18 05/05/20 25 05/05/2025 US, obste tric, follo w-up No observ ation record ed. [email or web address] [facility] [address], [place], [address], 05/05/2025 18:49:46 05/05/20 25 05/05/2025 US, obste tric, follo w-up No observ ation record ed. [email or web address] [facility] [address], [place], [address], 06/02/2025 11:18:53 Result Notes None recorded. Problems Name Problem SNOMED Code Status Onset Date Resolution Date Notes Provider Name and Address Organization Details Recorded Time 35566663 Active 2024 Gwen Rene null, [facility] 5 10:44:59 Migraine 93191631 Active 2024 on Qulipta, limited data in , declined MFM consultati on; follows with neurology JOSEY AKERS MD [address], [place], [address], [facility] 5 11:34:02 Problem Notes None recorded. Procedures Surgical History Date Name Laterality Status Provider Name and Address Organization Details Recorded Time 05/10/2023 Date of Last Pap Smear completed Diane Denton [facility] 06/20/2023 11:38:20 Imaging Results [...] Updated DateTime 06/17/2025 163.83 cm 31.8 kg/m2 38907.37 g 139/82 mm[Hg] HOLLIE PURVIS [facility] 06/17/2025 09:30:33 Social History Question Answer [...] Or The Highest Degree You Have Received? 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 Occasional Information not available 05/03/2023 Mental Status Question Answer Note LastModified by Organization D etails LastModified Time Do you feel stressed (tense, restless, nervous, or anxious, or unable to sleep at night)? [id number] Information not available 05/03/2023 Family History Nothing [...] ICD10 Code Diagnosis IMO Codes Diagnosis Note [id number] JOSEY AKERS MD [facility] [address] [address] 05/20/2025 09:16:40 05/20/2025 10:18:45 Heartburn 45632683 R12 47444 Gestation period, 34 weeks 40988892 Z3A.34 [id number] JOSEY AKERS MD [facility] [address] [address] 06/03/2025 15:12:33 06/03/2025 16:11:36 Third trimester 77825844 Z34.03 [id number] JOESY AKERS MD [facility] [address] [address] 06/12/2025 09:31:22 06/12/2025 12:32:06 Third trimester 47940272 Z34.03 [id number] JOSEY AKERS MD [facility] [address],[place] [address] 06/17/2025 09:26:48 06/17/2025 10:08:29 Third trimester 32130774 Z34.03 [id number] Health Concerns Section Related Observation LastModified by Organization Detai ls LastModified Time None Recorded Concern Status LastModified by Organization Details LastModified Time None Recorded Payers Encounter Date Sequence Insurance Name Policy Number Policy Romero Covered Member ID Romero Member ID Guarantor Name 06/17/2025 1 [employer] ([employer]) [id number] aPtrice Lopez [id number] Teagan Lopez Notes Date Note Type Note Provider Name and Address Organization Details Recorded Time 06/17/2025 text/html Generic HPI TemplateReported by Patient JOSEY AKERS MD [address], [place], [address], [facility] 06/17/2025 10:00:24 OBGyn Episode Ob Episode Information Episode Created Date Number of Fetuses Patient Bloodtype Patient rh Status Prepregnancy Weight lbs Domestic Partner Domestic Partner Phone Father Name Sourcing Manager Status 12/18/19 25 1 O Positive 144 Patrice Lopez OPEN Fetus Data First Name Last Name Admitted to NICU Weight (g) Sex Living Outcome Pediatric Complications Fetus ID Race Codes Race Delivery Type [id number] Problems Problem Notes Problem Name Start Date End Date Resolution Snomed Code Not e Migraine 12/17/2024 88745640 on Qulipt a, limited data in , [...] Date Ultra Sound Latest Days Gestation 0 12/19/2024 06/26/20 25 0 Pre-marcial Flowsheet Flowsheet Date 12/17/2024 Tam Score Blood Edema Fundus Height Fundus Units Glucose Ketones Leukocytes Nitrite Labor Signs Protein Cervic Dilation Cervic Effacement Cervic Station Type Weight in lbs Pre/Post Dialysis Refused Weight 145.458142118873 BP Diastolic BP Location Tested BP Systolic BP Type 74 L arm 111 sitting Fetus Heart Rate Present A Present Fetus Movement Comments Patient presents to [facility] care. Hx of migraines, on Qulipta, [...] Type Weight in lbs Pre/Post Dialysis Refused 148.844132770956 BP Diastolic BP Location Tested BP Systolic [...] Type Weight in lbs Pre/Post Dialysis Refused 157.237402821997 BP Diastolic BP Location Tested BP Systolic [...] Weight in lbs Pre/Post Dialysis Refused Weight 165.419893566156 BP Diastolic BP Location Tested BP Systolic [...] Weight in lbs Pre/Post Dialysis Refused Weight 172.767850429566 BP Diastolic BP Location Tested BP Systolic [...] Weight in lbs Pre/Post Dialysis Refused Weight 174.581866285988 BP Diastolic BP Location Tested BP Systolic [...] Type Weight in lbs Pre/Post Dialysis Refused 178.321240297410 BP Diastolic BP Location Tested BP Systolic [...] Type Weight in lbs Pre/Post Dialysis Refused 182.324587399119 BP Diastolic BP Location Tested BP Systolic [...] Weight in lbs Pre/Post Dialysis Refused Weight 185.856556436663 BP Diastolic BP Location Tested BP Systolic [...] Weight in lbs Pre/Post Dialysis Refused Weight 186.506017451740 BP Diastolic BP Location Tested BP Systolic [...] Weight in lbs Pre/Post Dialysis Refused Weight 188.861750772309 BP Diastolic BP Location Tested BP Systolic [...]
--- OUTSIDE RECORDS SUMMARY | 2025-06-19 17:01 | XMS_ITS | Continuity of Care Document ---
Author Organization [facility] Address [address] [place] [address] Care Team Providers Care Smt Operator Name Role Phone DOUG PETER Primary Care [...] normal Not Available Alex [address]ree[address], [place], [address], 12/24/2024 22:07:33 12/25/19 25 12/24/2024 [UNIT Y] ANEUP LOIDY NIPT 22Q11.2 microdeletio n LOW RISK <1 in 10,000 normal Not Available [facility] [address], [place], [address], 12/24/2024 22:07:33 12/25/19 25 12/24/2024 [UNIT Y] ANEUP LOIDY NIPT sex chromosome aneuploidy NOT DETECT ED normal Not Available [facility] [address], [place], [address], 12/24/2024 22:07:33 12/25/19 25 12/24/2024 [UNIT Y] ANEUP LOIDY NIPT monosomy X LOW RISK <1 in 10,000 normal Not Available [facility] [address], [place], [address], 12/24/2024 22:07:33 12/25/19 25 12/24/2024 [UNIT Y] ANEUP LOIDY NIPT trisomy 13 LOW RISK <1 in 10,000 normal Not Available [facility] [address], [place], [address], 12/24/2024 22:07:33 12/25/19 25 12/24/2024 [UNIT Y] ANEUP LOIDY NIPT trisomy 18 LOW RISK <1 in 10,000 normal Not Available [facility] [address], [place], [address], 12/24/2024 22:07:33 12/25/19 25 12/24/2024 [UNIT Y] ANEUP LOIDY NIPT trisomy 21 LOW RISK <1 in 10,000 normal Not Available [facility] [address], [place], [address], 12/24/2024 22:07:33 12/25/19 25 12/24/2024 [UNIT Y] ANEUP LOIDY NIPT sex FEMALE normal Not Available [facility] [address], [place], [address], 12/24/2024 22:07:33 12/25/19 25 12/24/2024 [UNIT Y] ANEUP LOIDY NIPT gestation SINGLE TON normal Not Available [facility] [address], [place], [address], 12/24/2024 22:07:33 12/25/19 25 12/24/2024 [UNIT Y] ANEUP ASHELY NIPT for detailed report, see pdf See PDF normal Not Available [facility] [address], [place], [address], 12/24/2024 22:07:33 12/26/19 25 12/25/2024 [UNIT Y] NIRAJ JULIENNE Fowler sickle cell disease/beta -thalassemia /hemoglobino pathies carrier screen NEGATI VE normal Not Available [facility] [address], [place], [address], 12/25/2024 22:03:15 12/26/19 25 12/25/2024 [UNIT Y] NIRAJ JULIENNE Fowler alpha-thalas semia carrier screen NEGATI VE normal Not Available [facility] [address], [place], [address], 12/25/2024 22:03:15 12/26/19 25 12/25/2024 [UNIT Y] NIRAJ JULIENNE Fowler cystic fibrosis carrier screen NEGATI VE normal Not Available [facility] [address], [place], [address], 12/25/2024 22:03:15 12/26/19 25 12/25/2024 [UNIT Y] NIRAJ Fowler spinal muscular atrophy carrier screen NEGATI VE 2 SMN1 copies , SNP not presen t normal Not Available [facility] [address], [place], [address], 12/25/2024 22:03:15 12/26/19 25 12/25/2024 [UNIT Y] NIRAJ Fowler for detailed report, see pdf See PDF normal Not Available [facility] [address], [place], [address], 12/25/2024 22:03:15 12/18/19 25 12/17/2024 CULTU RE: URINE result report SEE RESULT S BELOW Test: Cultu re: Urine Speci men Sourc e: Urine - Clean Catch Speci men Type: Urine Speci men Date: 2024 1312 Resul t Date: 2024 2142 Resul t Statu s: Final resul t Abnor mal: No Resul ting Lab: [facility] [address] [facility] [address] Tel: CULTU RE ----- ----- ----- --- No growt h in 1 day (dete ction level of 10,00 0 colon ies / ml.) Not Available [facility] (Lab) [address] [facility], [place], [address], 12/18/2024 22:45:51 12/18/1912/17/2024 CBC W/DIF F WBC 8.4 10'3/ uL 3.5-10 .5 Not Available [facility] (Lab) [address] [place], [address], 12/19/2024 09:54:28 12/18/1912/17/2024 CBC W/DIF F RBC 4.57 10'6/ uL (based on docume nted legal sex) 3.80-5 .20 Not Available [facility] (Lab) [address] [place], [address], 12/19/2024 09:54:28 12/18/1912/17/2024 CBC W/DIF F HGB 14.2 g/dL (based on docume nted legal sex) 11.6-1 5.4 Not Available [facility] (Lab) [address] [place], [address], 12/19/2024 09:54:28 12/18/1912/17/2024 CBC W/DIF F HCT 43.1 % (based on docume nted legal sex) 34.0-4 5.0 Not Available [facility] (Lab) [address] [place], [address], 12/19/2024 09:54:28 12/18/19 25 12/17/2024 CBC W/DIF F MCV 94.3 fL 80.0-9 9.0 Not Available [facility] (Lab) [address], [place], [address], 12/19/2024 09:54:28 12/18/19 25 12/17/2024 CBC W/DIF F MCH 31.1 pg 27.0-3 4.0 Not Available [facility] (Lab) [address], [place], [address], 12/19/2024 09:54:28 12/18/19 25 12/17/2024 CBC W/DIF F MCHC 32.9 g/dL 32.0-3 5.5 Not Available [facility] (Lab) [address], [place], [address], 12/19/2024 09:54:28 12/18/19 25 12/17/2024 CBC W/DIF F RDW 12.5 % 11.0-1 5.0 Not Available [facility] (Lab) [address], [place], [address], 12/19/2024 09:54:28 12/18/19 25 12/17/2024 CBC W/DIF F plt 263 10'3/ uL 150-40 0 Not Available [facility] (Lab) [address], [place], [address], 12/19/2024 09:54:28 12/18/19 25 12/17/2024 CBC W/DIF F MPV 11.1 fL 8.8-12 .1 Not Available [facility] (Lab) [address], [place], [address], 12/19/2024 09:54:28 12/18/19 25 12/17/2024 CBC W/DIF F NRBC's 0.0 % 0.0 Not Available [facility] (Lab) [address], [place], [address], 12/19/2024 09:54:28 12/18/19 25 12/17/2024 CBC W/DIF F absolute NRBCs 0.0 10'3/ uL no refere nce range establ ished Not Available [facility] (Lab) [address], [place], [address], 12/19/2024 09:54:28 12/18/19 25 12/17/2024 CBC W/DIF F neutrophils 70.6 % 34.0-7 3.0 Not Available [facility] (Lab) [address] [facility], [place], [address], 12/19/2024 09:54:28 12/18/19 25 12/17/2024 CBC W/DIF F lymphocytes 17.6 % 15.0-5 0.0 Not Available [facility] (Lab) [address] [facility], [place], [address], 12/19/2024 09:54:28 12/18/19 25 12/17/2024 CBC W/DIF F monocytes 8.1 % 1.0-15 .0 Not Available [facility] (Lab) [address] [facility], [place], [address], 12/19/2024 09:54:28 12/18/19 25 12/17/2024 CBC W/DIF F eosinophils 2.6 % 0.0-8. 0 Not Available [facility] (Lab) [address] [facility], [place], [address], 12/19/2024 09:54:28 12/18/19 25 12/17/2024 CBC W/DIF F basophils 0.7 % 0.0-2. 0 Not Available [facility] (Lab) [address] [facility], [place], [address], 12/19/2024 09:54:28 12/18/19 25 12/17/2024 CBC W/DIF [...] separ ately if prese nt. Not Available [facility] (Lab) [address] [facility], [place], [address], 12/19/2024 09:54:28 12/18/1912/17/2024 CBC W/DIF F absolute neutrophils 5.9 10'3/ uL 1.5-8. 0 Not Available [facility] (Lab) [address] [facility], [place], [address], 12/19/2024 09:54:28 12/18/1912/17/2024 CBC W/DIF F absolute lymphocytes 1.5 10'3/ uL 1.0-4. 0 Not Available [facility] (Lab) [address] [facility], [place], [address], 12/19/2024 09:54:28 12/18/19 25 12/17/2024 CBC W/DIF F absolute monocytes 0.7 10'3/ uL 0.2-1. 0 Not Available [facility] (Lab) [address] [facility], [place], [address], 12/19/2024 09:54:28 12/18/19 25 12/17/2024 CBC W/DIF F absolute eosinophils 0.2 10'3/ uL 0.0-0. 6 Not Available [facility] ([facility]) [address] [facility], [place], [address], 12/19/2024 09:54:28 12/18/19 25 12/17/2024 CBC W/DIF F absolute basophils 0.1 10'3/ uL 0.0-0. 3 Not Available [facility] (Lab) [address] [place], [address], 12/19/2024 09:54:28 12/18/1912/17/2024 CBC W/DIF F absolute immature granulocytes 0.0 10'3/ uL 0.00-0 .10 : Not Hispa maia or Latin o Refer ence range s for nonbi nary/ inter sex or unspe cifie d gende r patie nts have not been estab lishe d. Sharmila e [facility] table for range s estab lishe d for cisge nder patie nts and evalu ate in the clini norbert rob xt of the indiv idual patie nt: https ://la bhand book. nm.or g/gen derx Not Available [facility] (Lab) [address] [facility], [place], [address], 12/19/2024 09:54:28 12/18/1912/17/2024 HIV 1/2 ANTIG EN/AN TIBOD Y, REFLE X CONFI RMATI ON HIV antigen/anti body Nonrea ctive nonrea ctive : Not Hispa maia or Latin o HIV-1 antig en and HIV-1 /HIV- 2 antib odies were not detec hiren. No labor atory evide nce of HIV infec tion. Not Available [facility] (Lab) [address] [facility], [place], [address], 12/19/2024 09:54:28 12/18/1912/17/2024 HEPAT ITIS B SURFA [...] Hispa maia or Latin o Not Available [facility] (Lab) [address] [facility], [place], [address], 12/19/2024 09:54:29 12/18/1912/17/2024 HEPAT ITIS C ANTIB HERMELINDA SCREE N, REFLE X TO CONFI RMATI ON hepatitis C antibody Non-re active non-re active Antib odies to HCV Not Detec hiren, does not exclu de the possi bilit y of expos ure to HCV. : Not Hispa maia or Latin o Not Available [facility] (Lab) [address], [place], [address], 12/19/2024 09:54:29 12/18/19 25 12/17/2024 RUBEL LA IGG ANTIB HERMELINDA, QUANT rubella antibodies, IgG Reacti ve reacti ve Not Available [facility] (Lab) [address], [place], [address], 12/19/2024 09:54:29 12/18/19 25 12/17/2024 RUBEL LA IGG ANTIB HERMELINDA, QUANT rubella antibodies, IgG quant 15.1 IU/mL >=10 : Not Hispa maia or Latin o Non-r eacti ve (Non- Immun e) <10 IU/mL React bridger (Immu ne) > or = 10 IU/mL Not Available [facility] (Lab) [address], [place], [address], 12/19/2024 09:54:29 12/18/19 25 12/17/2024 TYPE/ RH/SC REEN ABO/Rh type O POS Not Available [facility] (Lab) [address], [place], [address], 12/19/2024 09:54:30 12/18/19 25 12/17/2024 TYPE/ RH/SC REEN antibody screen NEG Not Available [facility] (Lab) [address], [place], [address], 12/19/2024 09:54:30 12/18/19 25 12/17/2024 TYPE/ RH/SC REEN exp date 2024 23:59 Not Available [facility] ([facility]) [address], [place], [address], 12/19/2024 09:54:30 12/18/19 25 12/17/2024 HEMOG LOBIN [...] >8.0% Actio n sugge sted Not Available [facility] ([facility]) [address] [facility], [place], [address], 12/19/2024 09:54:30 12/18/1912/17/2024 RPR SCREE N, REFLE X TITER /CONF IRMAT ION RPR qualitative Nonrea ctive nonrea ctive : Not Hispa maia or Latin o Not Available [facility] (Lab) [address] [facility], [place], [address], 12/19/2024 09:54:30 12/18/1912/17/2024 LEAD, BLOOD (ADUL T/PED IATRI C) lead, whole blood <1.0 mcg/d L <3.5 See Note 1 Giuliano sis was perfo rmed by Parth López ed Plasm a Mass Spect romet ry (ICPM S) Note 1 This test was devel oped and its giuliano tical perfo rmanc e higinio cteri stics have been deter mined by [employer] ostic s. It has not been clear ed or appro rico by the FDA. This assay has been valid ated pursu ant to the CLIA regul ation s and is used for clini norbert purpo ses. : Not Hispa maia or Latin o Perfo rming Organ izati on Infor matgeorge n: Site ID: CB Name: [employer] ostic s-Bret Lynne Addre ss: [address] [place] [address] Direc tor: Helio ny V Ruby s Not Available [facility] (Lab) [address] [facility], [place], [address], 12/19/2024 09:54:31 12/18/19 25 12/17/2024 drug scree n, urine Amphetamines : negati ve Not Available [facility] [address], [place], [address], 12/17/2024 11:29:48 12/18/19 25 12/17/2024 drug scree n, urine Cannabinoids : negati ve Not Available [facility] [address], [place], [address], 12/17/2024 11:29:48 12/18/19 25 12/17/2024 drug scree n, urine Cocaine: negati ve Not Available [facility] [address], [place], [address], 12/17/2024 11:29:48 12/18/19 25 12/17/2024 drug scree n, urine Opiates: negati ve Not Available [facility] [address], [place], [address], 12/17/2024 11:29:48 12/18/19 25 12/17/2024 drug scree n, urine Barbiturates : negati ve Not Available [facility] [address], [place], [address], 12/17/2024 11:29:48 12/18/19 25 12/17/2024 drug scree n, urine Benzodiazepi benton: negati ve Not Available [facility] [address], [place], [address], 12/17/2024 11:29:48 04/08/20 25 04/08/2025 HEMAT OCRIT (HCT) HCT 42.0 % (based on docume nted legal sex) 34.0-4 5.0 Not Available [facility] ([facility]) [address], [place], [address], 04/09/2025 11:41:17 04/08/20 25 04/08/2025 HEMOG LOBIN (HGB) HGB 13.6 g/dL (based on docume nted legal sex) 11.6-1 5.4 Not Available [facility] (Lab) [address] [facility], [place], [address], 04/09/2025 11:41:18 04/08/20 25 04/08/2025 HIV 1/2 ANTIG EN/AN TIBOD Y, REFLE X CONFI RMATI ON HIV antigen/anti body Nonrea ctive nonrea ctive HIV-1 antig en and HIV-1 /HIV- 2 antib odies were not detec hiren. No labor atory evide nce of HIV infec tion. Not Available [facility] ([facility]) [address] [facility], [place], [address], 04/09/2025 11:41:18 04/08/2004/08/2025 GTT - GESTA ESTHER L SCREE N, ACOG OB glucose, 1 hour screen 109 mg/dL 70-[address] [facility] (Lab) [address] [facility], [place], [address], 04/09/2025 11:41:18 04/08/20 25 04/08/2025 RPR SCREE N, REFLE X TITER /CONF IRMAT ION RPR qualitative Nonrea ctive nonrea ctive Not Available [facility] (Lab) [address] [place], [address], 04/09/2025 11:41:19 04/08/20 25 04/08/2025 WOMEN 'S HEALT H SWAB PLUS, TIFFANY bacterial vaginosis (bv), tma Negati ve negati ve Not Available [facility] (Lab) [address] [place], [address], 04/09/2025 15:24:57 04/08/20 25 04/08/2025 WOMEN 'S HEALT H SWAB PLUS, TIFFANY cristino species, tma Positi ve negati ve abnormal Not Available [facility] (Lab) [address] [facility], [place], [address], 04/09/2025 15:24:57 04/08/20 25 04/08/2025 [facility], TIFFANY cristino glabrata, tma Negati ve negati ve Not Available [facility] ([facility]) [address] [place], [address], 04/09/2025 15:24:57 04/08/20 25 04/08/2025 [facility] SW[facility], TIFFANY trichomonas vaginalis, tma Negati ve negati ve Not Available [facility] ([facility]) [address] [facility], [place], [address], 04/09/2025 15:24:57 04/08/20 25 04/08/2025 [facility] SW[facility], TIFFANY chlamydia trachomatis, PCR Negati ve negati ve Not Available [facility] (Lab) [address] [place], [address], 04/09/2025 15:24:57 04/08/20 25 04/08/2025 [facility] SW[facility], TIFFANY neisseria gonorrhoeae, PCR [...] ded in this panel . Not Available [facility] ([facility]) [address] [facility], [place], [address], 04/09/2025 15:24:57 06/03/20 25 06/03/2025 CULTU RE: [...] t Abnor mal: No Resul ting Lab: [facility] [address] [facility] [address] Tel: CULTU RE ----- ----- ----- --- No Group B strep isola hiren at 2 days (new ctive broth enhan cemen t) Not Available [facility] ([facility]) [address] [facility], [place], [address], 06/06/2025 14:22:10 12/18/19 25 12/17/2024 US, obste tric, nucha l trans lucen cy No observ ation record ed. [email or web address] [place] [address], [place], [address], 12/17/2024 17:14:02 12/18/19 25 12/17/2024 US, obste tric, nucha l trans lucen cy No observ ation record ed. Meena [address], [place], [address], 12/19/2024 10:22:49 02/15/20 25 02/14/2025 US, obste tric, 2nd or 3rd trime ster No observ ation record ed. [email or web address] [place] [address], [place], [address], 02/14/2025 17:07:31 02/15/20 25 02/14/2025 US, obste tric, 2nd or 3rd trime ster No observ ation record ed. Meena [address], [place], [address], 02/14/2025 16:04:18 05/05/20 25 05/05/2025 US, obste tric, follo w-up No observ ation record ed. [email or web address] [place] [address], [place], [address], 05/05/2025 18:49:46 05/05/20 25 05/05/2025 US, obste tric, follo w-up No observ ation record ed. Meena [address], [place], [address], 06/02/2025 11:18:53 Result Notes None recorded. Problems Name Problem SNOMED Code Status Onset Date Resolution Date Notes Provider Name and Address Organization Details Recorded Time 06297896 Active 2024 Gwen Rene null, [facility] 5 10:44:59 Migraine 96204977 Active 2024 on Qulipta, limited data in , declined MFM consultati on; follows with neurology JOSEY AKERS MD [address], [place], [address], , [facility] 5 11:34:02 Problem Notes None recorded. Procedures Surgical History Date Name Laterality Status Provider Name and Address Organization Details Recorded Time 05/10/2023 Date of Last Pap Smear completed Diane Denton [facility] 06/20/2023 11:38:20 Imaging Results None [...] Updated DateTime 06/12/2025 163.83 cm 31.4 kg/m2 98883.18 g 121/78 mm[Hg] HOLLIE PURVIS [facility] 06/12/2025 09:43:29 Social History Question Answer Notes LastModified by [...] Or The Highest Degree You Have Received? 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 Occasional Information not available 05/03/2023 Mental Status Question Answer Note LastModified by Organization D etails LastModified Time Do you feel stressed (tense, restless, nervous, or anxious, or unable to sleep at night)? [id number] Information not available 05/03/2023 Family History Nothing [...] ICD10 Code Diagnosis IMO Codes Diagnosis Note [id number] JOSEY AKERS MD [place] [address] [address] 05/20/2025 09:16:40 05/20/2025 10:18:45 Heartburn 09503313 R12 22753 Gestation period, 34 weeks 49974834 Z3A.34 [id number] JOSEY AKERS MD [place] [address] [address] 06/03/2025 15:12:33 06/03/2025 16:11:36 Third trimester 65753061 Z34.03 [id number] JOSEY AKERS MD [place] [address] [address] 06/12/2025 09:31:22 06/12/2025 12:32:06 Third trimester 13682434 Z34.03 [id number] Health Concerns Section Related Observation LastModified by Organization Detai ls LastModified Time None Recorded Concern Status LastModified by Organization Details LastModified Time None Recorded Payers Encounter Date Sequence Insurance Name Policy Number Policy Romero Covered Member ID Romero Member ID Guarantor Name 06/12/2025 1 [place] [id number] Patrice Lopez [id number] Teagan Lopez Notes Date Note Type Note Provider Name and Address Organization Details Recorded Time 06/12/2025 text/html Generic HPI TemplateReported by Patient JOSEY AKERS MD [address], [place], [address], [facility] 06/12/2025 12:29:51 OBGyn Episode Ob Episode Information Episode Created Date Number of Fetuses Patient Bloodtype Patient rh Status Prepregnancy Weight lbs Domestic Partner Domestic Partner Phone Father Name Automation Mechanic Status 12/18/19 25 1 O Positive 144 Patrice Lopez OPEN Fetus Data First Name Last Name Admitted to NICU Weight (g) Sex Living Outcome Pediatric Complications Fetus ID Race Codes Race Delivery Type [id number] Problems Problem Notes Problem Name Start Date End Date Resolution Snomed Code Not e Migraine 12/17/2024 10491642 on Qulipt a, limited data in , [...] Date Ultra Sound Latest Days Gestation 0 [email or web address] 12/19/2024 06/26/20 25 0 Pre-marcial Flowsheet Flowsheet Date 12/17/2024 Tam Score Blood Edema Fundus Height Fundus Units Glucose Ketones Leukocytes Nitrite Labor Signs Protein Cervic Dilation Cervic Effacement Cervic Station Type Weight in lbs Pre/Post Dialysis Refused Weight 145.968467064710 BP Diastolic BP Location Tested BP Systolic BP Type 74 L arm 111 sitting Fetus Heart Rate Present A Present Fetus Movement Comments Patient presents to [facility] care. Hx of migraines, on Qulipta, [...] Type Weight in lbs Pre/Post Dialysis Refused 148.913660617368 BP Diastolic BP Location Tested BP Systolic [...] Type Weight in lbs Pre/Post Dialysis Refused 157.327726820860 BP Diastolic BP Location Tested BP Systolic [...] Weight in lbs Pre/Post Dialysis Refused Weight 165.694174649728 BP Diastolic BP Location Tested BP Systolic [...] Weight in lbs Pre/Post Dialysis Refused Weight 172.920847539847 BP Diastolic BP Location Tested BP Systolic [...] Weight in lbs Pre/Post Dialysis Refused Weight 174.585020495246 BP Diastolic BP Location Tested BP Systolic [...] Type Weight in lbs Pre/Post Dialysis Refused 178.722507799883 BP Diastolic BP Location Tested BP Systolic [...] Type Weight in lbs Pre/Post Dialysis Refused 182.176745267969 BP Diastolic BP Location Tested BP Systolic [...] Weight in lbs Pre/Post Dialysis Refused Weight 185.148838371222 BP Diastolic BP Location Tested BP Systolic [...] Weight in lbs Pre/Post Dialysis Refused Weight 186.882112922439 BP Diastolic BP Location Tested BP Systolic [...] Weight in lbs Pre/Post Dialysis Refused Weight 188.986602584166 BP Diastolic BP Location Tested BP Systolic [...]
--- OUTSIDE RECORDS SUMMARY | 2025-06-19 17:01 | XMS_ITS | Continuity of Care Document ---
Author Organization [facility] Address [address] [place] [address] [address] Care Team Providers Care Seam Taper Machine Name Role Phone DOUGPETER Primary Care Provider Assessment No assessment recorded. [...] Procedures None recorded. Surgeries None recorded. Imaging US, obstetric , follow-up [address] [facility] [address], [address], [place], [address], 05/06/2025 11:44:09 Medication Orders None recorded. Patient TargetsNo targets recorded. Patient InstructionsNo instructions recorded. Reason for Referral None Reported. Results Created Date Observation Date Name Description Value Unit Range Abnormal Flag Note LastModifiedBy Organization Detail LastModifiedTime 12/25/1912/24/2024 [UNIT Y] ANEUP LOIDY NIPT fraction 13.0% normal Not Available Alex dangelo [address], [place], [address], 12/24/2024 22:07:33 12/25/19 25 12/24/2024 [UNIT Y] ANEUP LOIDY NIPT 22Q11.2 microdeletio n LOW RISK <1 in 10,000 normal Not Available [facility] [address], [place], [address], 12/24/2024 22:07:33 12/25/19 25 12/24/2024 [UNIT Y] ANEUP LOIDY NIPT sex chromosome aneuploidy NOT DETECT ED normal Not Available [facility] [address], [place], [address], 12/24/2024 22:07:33 12/25/19 25 12/24/2024 [UNIT Y] ANEUP LOIDY NIPT monosomy X LOW RISK <1 in 10,000 normal Not Available [facility] [address], [place], [address], 12/24/2024 22:07:33 12/25/19 25 12/24/2024 [UNIT Y] ANEUP LOIDY NIPT trisomy 13 LOW RISK <1 in 10,000 normal Not Available [facility] [address], [place], [address], 12/24/2024 22:07:33 12/25/19 25 12/24/2024 [UNIT Y] ANEUP LOIDY NIPT trisomy 18 LOW RISK <1 in 10,000 normal Not Available [facility] [address], [place], [address], 12/24/2024 22:07:33 12/25/19 25 12/24/2024 [UNIT Y] ANEUP LOIDY NIPT trisomy 21 LOW RISK <1 in 10,000 normal Not Available [facility] [address], [place], [address], 12/24/2024 22:07:33 12/25/19 25 12/24/2024 [UNIT Y] ANEUP LOIDY NIPT sex FEMALE normal Not Available [facility] [address], [place], [address], 12/24/2024 22:07:33 12/25/19 25 12/24/2024 [UNIT Y] ANEUP LOIDY NIPT gestation SINGLE TON normal Not Available [facility] [address], [place], [address], 12/24/2024 22:07:33 12/25/19 25 12/24/2024 [UNIT Y] ANEUP LOIDY NIPT for detailed report, see pdf See PDF normal Not Available [facility] [address], [place], [address], 12/24/2024 22:07:33 12/26/19 25 12/25/2024 [UNIT Y] NIRAJ Fowler sickle cell disease/beta -thalassemia /hemoglobino pathies carrier screen NEGATI VE normal Not Available [facility] [address], [place], [address], 12/25/2024 22:03:15 12/26/19 25 12/25/2024 [UNIT Y] NIRAJ Fowler alpha-thalas semia carrier screen NEGATI VE normal Not Available [facility] [address], [place], [address], 12/25/2024 22:03:15 12/26/19 25 12/25/2024 [UNIT Y] NIRAJ Fowler cystic fibrosis carrier screen NEGATI VE normal Not Available [facility] [address], [place], [address], 12/25/2024 22:03:15 12/26/19 25 12/25/2024 [UNIT Y] NIRAJ Fowler spinal muscular atrophy carrier screen NEGATI VE 2 SMN1 copies , SNP not presen t normal Not Available [facility] [address], [place], [address], 12/25/2024 22:03:15 12/26/19 25 12/25/2024 [UNIT Y] NIRAJ Fowler for detailed report, see pdf See PDF normal Not Available [facility] [address], [place], [address], 12/25/2024 22:03:15 12/18/1912/17/2024 CULTU RE: URINE result report SEE RESULT S BELOW Test: Cultu re: Urine Speci men Sourc e: Urine - Clean Catch Speci men Type: Urine Speci men Date: 2024 1312 Resul t Date: 2024 2142 Resul t Statu s: Final resul t Abnor mal: No Resul ting Lab: [facility] [address] [facility] [address] Tel: [phone] CULTU RE ----- ----- ----- --- No growt h in 1 day (dete ction level of 10,00 0 colon ies / ml.) Not Available [facility] (Lab) [address], [place], [address], 12/18/2024 22:45:51 12/18/19 25 12/17/2024 CBC W/DIF F WBC 8.4 10'3/ uL 3.5-10 .5 Not Available [facility] (Lab) [address], [place], [address], 12/19/2024 09:54:28 12/18/19 25 12/17/2024 CBC W/DIF F RBC 4.57 10'6/ uL (based on docume nted legal sex) 3.80-5 .20 Not Available [facility] (Lab) [address] [place], [address], 12/19/2024 09:54:28 12/18/19 25 12/17/2024 CBC W/DIF F HGB 14.2 g/dL (based on docume nted legal sex) 11.6-1 5.4 Not Available [facility] (Lab) [address] [place], [address], 12/19/2024 09:54:28 12/18/19 25 12/17/2024 CBC W/DIF F HCT 43.1 % (based on docume nted legal sex) 34.0-4 5.0 Not Available [facility] (Lab) [address], [place], [address], 12/19/2024 09:54:28 12/18/19 25 12/17/2024 CBC W/DIF F MCV 94.3 fL 80.0-9 9.0 Not Available [facility] (Lab) [address], [place], [address], 12/19/2024 09:54:28 12/18/19 25 12/17/2024 CBC W/DIF F MCH 31.1 pg 27.0-3 4.0 Not Available [facility] (Lab) [address], [place], [address], 12/19/2024 09:54:28 12/18/19 25 12/17/2024 CBC W/DIF F MCHC 32.9 g/dL 32.0-3 5.5 Not Available [facility] (Lab) [address], [place], [address], 12/19/2024 09:54:28 12/18/1912/17/2024 CBC W/DIF F RDW 12.5 % 11.0-1 5.0 Not Available [facility] (Lab) [address], [place], [address], 12/19/2024 09:54:28 12/18/1912/17/2024 CBC W/DIF F plt 263 10'3/ uL 150-40 0 Not Available [facility] (Lab) [address], [place], [address], 12/19/2024 09:54:28 12/18/19 25 12/17/2024 CBC W/DIF F MPV 11.1 fL 8.8-12 .1 Not Available [facility] (Lab) [address], [place], [address], 12/19/2024 09:54:28 12/18/19 25 12/17/2024 CBC W/DIF F NRBC's 0.0 % 0.0 Not Available [facility] (Lab) [address], [place], [address], 12/19/2024 09:54:28 12/18/19 25 12/17/2024 CBC W/DIF F absolute NRBCs 0.0 10'3/ uL no refere nce range establ ished Not Available [facility] (Lab) [address], [place], [address], 12/19/2024 09:54:28 12/18/1912/17/2024 CBC W/DIF F neutrophils 70.6 % 34.0-7 3.0 Not Available [facility] (Lab) [address], [place], [address], 12/19/2024 09:54:28 12/18/19 25 12/17/2024 CBC W/DIF F lymphocytes 17.6 % 15.0-5 0.0 Not Available [facility] (Lab) [address], [place], [address], 12/19/2024 09:54:28 12/18/1912/17/2024 CBC W/DIF F monocytes 8.1 % 1.0-15 .0 Not Available [facility] (Lab) [address], [place], [address], 12/19/2024 09:54:28 12/18/1912/17/2024 CBC W/DIF F eosinophils 2.6 % 0.0-8. 0 Not Available [facility] (Lab) [address], [place], [address], 12/19/2024 09:54:28 12/18/1912/17/2024 CBC W/DIF F basophils 0.7 % 0.0-2. 0 Not Available [facility] (Lab) [address] [place], [address], 12/19/2024 09:54:28 12/18/19 25 12/17/2024 CBC W/DIF [...] separ ately if prese nt. Not Available [facility] (Lab) [address] , [place], [address], 12/19/2024 09:54:28 12/18/1912/17/2024 CBC W/DIF F absolute neutrophils 5.9 10'3/ uL 1.5-8. 0 Not Available [facility] (Lab) [address] , [place], [address], 12/19/2024 09:54:28 12/18/19 25 12/17/2024 CBC W/DIF F absolute lymphocytes 1.5 10'3/ uL 1.0-4. 0 Not Available [facility] (Lab) [address], [place], [address], 12/19/2024 09:54:28 12/18/19 25 12/17/2024 CBC W/DIF F absolute monocytes 0.7 10'3/ uL 0.2-1. 0 Not Available [facility] (Lab) [address] , [place], [address], 12/19/2024 09:54:28 12/18/19 25 12/17/2024 CBC W/DIF F absolute eosinophils 0.2 10'3/ uL 0.0-0. 6 Not Available [facility] (Lab) [address] , [place], [address], 12/19/2024 09:54:28 12/18/19 25 12/17/2024 CBC W/DIF F absolute basophils 0.1 10'3/ uL 0.0-0. 3 Not Available [facility] (Lab) [address], [place], [address], 12/19/2024 09:54:28 12/18/1912/17/2024 CBC W/DIF F absolute immature granulocytes 0.0 10'3/ uL 0.00-0 .10 : Not Hispa maia or Latin o Refer ence range s for nonbi nary/ inter sex or unspe cifie d gende r patie nts have not been estab lishe d. Pleas e refer to the [facility] table for range s estab lishe d for cisge nder patie nts and evalu ate in the clini norbert rob xt of the indiv idual patie nt: https ://la danyelland book. nm.or g/gen derx Not Available [facility] (Lab) [address], [place], [address], 12/19/2024 09:54:28 12/18/1912/17/2024 HIV 1/2 ANTIG EN/AN TIBOD Y, REFLE X CONFI RMATI ON HIV antigen/anti body Nonrea ctive nonrea ctive : Not Hispa maia or Latin o HIV-1 antig en and HIV-1 /HIV- 2 antib odies were not detec hiren. No labor atory evide nce of HIV infec tion. Not Available [facility] (Lab) [address] [address], [place], [address], 12/19/2024 09:54:28 12/18/1912/17/2024 HEPAT ITIS B SURFA [...] Hispa maia or Latin o Not Available [facility] (Lab) [address] [address], [place], [address], 12/19/2024 09:54:29 12/18/1912/17/2024 HEPAT ITIS C ANTIB HERMELINDA SCREE N, REFLE X TO CONFI RMATI ON hepatitis C antibody Non-re active non-re active Antib odies to HCV Not Detec hiren, does not exclu de the possi bilit y of expos ure to HCV. : Not Hispa maia or Latin o Not Available [facility] (Lab) [address], [place], [address], 12/19/2024 09:54:29 12/18/1912/17/2024 RUBEL LA IGG ANTIB HERMELINDA, QUANT rubella antibodies, IgG Reacti ve reacti ve Not Available [facility] (Lab) [address], [place], [address], 12/19/2024 09:54:29 12/18/1912/17/2024 RUBEL LA IGG ANTIB HERMELINDA, QUANT rubella antibodies, IgG quant 15.1 IU/mL >=10 : Not Hispa maia or Latin o Non-r eacti ve (Non- Immun e) <10 IU/mL React bridger (Immu ne) > or = 10 IU/mL Not Available [facility] (Lab) [address], [place], [address], 12/19/2024 09:54:29 12/18/1912/17/2024 TYPE/ RH/SC REEN ABO/Rh type O POS Not Available [facility] (Lab) [address], [place], [address], 12/19/2024 09:54:30 12/18/1912/17/2024 TYPE/ RH/SC REEN antibody screen NEG Not Available [facility] (Lab) [address], [place], [address], 12/19/2024 09:54:30 12/18/1912/17/2024 TYPE/ RH/SC REEN exp date 2024 23:59 Not Available [facility] (Lab) [address] [place] [place], [address], 12/19/2024 09:54:30 12/18/1912/17/2024 HEMOG LOBIN A1C hemoglobin [...] >8.0% Actio n sugge sted Not Available [facility] (Lab) [address], [place], [address], 12/19/2024 09:54:30 12/18/1912/17/2024 RPR SCREE N, REFLE X TITER /CONF IRMAT ION RPR qualitative Nonrea ctive nonrea ctive : Not Hisco maia or Latin o Not Available [facility] (Lab) [address] [place], [address], 12/19/2024 09:54:30 12/18/1912/17/2024 LEAD, BLOOD (ADUL T/PED IATRI C) lead, whole blood <1.0 mcg/d L <3.5 See Note 1 Giuliano sis was perfo rmed by Parth López ed Plasm a Mass Spect romet ry (ICPM S) Note 1 This test was devel oped and its giuliano tical perfo rmanc e higinio cteri stics have been deter mined by [employer] [facility] [facility]. It has not been clear ed or appro rico by the FDA. This assay has been valid ated pursu ant to the CLIA regul ation s and is used for clini norbert purpo ses. : Not Hispa maia or Latin o Perfo rming Organ izati on Infor matgeorge n: Site ID: [id number] Name: [employer] [facility]-[address] ss: [address] [place] [address] Direc tor: Helio ulloa Not Available [facility] (Lab) [address], [place], [address], 12/19/2024 09:54:31 12/18/19 25 12/17/2024 drug scree n, urine Amphetamines : negati ve Not Available [address], [place], [address], 12/17/2024 11:29:48 12/18/19 25 12/17/2024 drug scree n, urine Cannabinoids : negati ve Not Available [address], [place], [address], 12/17/2024 11:29:48 12/18/19 25 12/17/2024 drug scree n, urine Cocaine: negati ve Not Available [address], [place], [address], 12/17/2024 11:29:48 12/18/19 25 12/17/2024 drug scree n, urine Opiates: negati ve Not Available [address], [place], [address], 12/17/2024 11:29:48 12/18/19 25 12/17/2024 drug scree n, urine Barbiturates : negati ve Not Available [address], [place], [address], 12/17/2024 11:29:48 12/18/19 25 12/17/2024 drug scree n, urine Benzodiazepi [place]: negati ve Not Available [address], [place], [address], 12/17/2024 11:29:48 04/08/20 25 04/08/2025 HEMAT OCRIT (HCT) HCT 42.0 % (based on docume nted legal sex) 34.0-4 5.0 Not Available [facility] (Lab) [address] [address], [place], [address], 04/09/2025 11:41:17 04/08/20 25 04/08/2025 HEMOG LOBIN (HGB) HGB 13.6 g/dL (based on docume nted legal sex) 11.6-1 5.4 Not Available [facility] (Lab) [address], [place], [address], 04/09/2025 11:41:18 04/08/2004/08/2025 HIV 1/2 ANTIG EN/AN TIBOD Y, REFLE X CONFI RMATI ON HIV antigen/anti body Nonrea ctive nonrea ctive HIV-1 antig en and HIV-1 /HIV- 2 antib odies were not detec hiren. No labor atory evide nce of HIV infec tion. Not Available [facility] (Lab) [address], [place], [address], 04/09/2025 11:41:18 04/08/20 25 04/08/2025 GTT - GESTA ESTHER L SCREE N, ACOG OB glucose, 1 hour screen 109 mg/dL 70-135 Not Available [facility] (Lab) [address], [place], [address], 04/09/2025 11:41:18 04/08/20 25 04/08/2025 RPR SCREE N, REFLE X TITER /CONF IRMAT ION RPR qualitative Nonrea ctive nonrea ctive Not Available [facility] (Lab) [address], [place], [address], 04/09/2025 11:41:19 04/08/20 25 04/08/2025 WOMEN 'S HEALT H SWAB PLUS, TIFFANY bacterial vaginosis (bv), tma Negati ve negati ve Not Available [facility] (Lab) [address] [place], [address], 04/09/2025 15:24:57 04/08/20 25 04/08/2025 WOMEN 'S HEALT H SWAB PLUS, TIFFANY cristino species, tma Positi ve negati ve abnormal Not Available [facility] (Lab) [address] [place], [address], 04/09/2025 15:24:57 04/08/20 25 04/08/2025 WOMEN 'S HEALT H SWAB PLUS, TIFFANY cristino glabrata, tma Negati ve negati ve Not Available [facility] (Lab) [address] [place], [address], 04/09/2025 15:24:57 04/08/20 25 04/08/2025 [facility] trichomonas vaginalis, tma Negati ve negati ve Not Available [facility] (Lab) [address] [place], [address], 04/09/2025 15:24:57 04/08/20 25 04/08/2025 [facility] TIFFANY chlamydia trachomatis, PCR Negati ve negati ve Not Available [facility] (Lab) [address] [place], [address], 04/09/2025 15:24:57 04/08/20 25 04/08/2025 [facility] TIFFANY neisseria gonorrhoeae, [...] ded in this panel . Not Available [facility] (Lab) [address], [place], [address], 04/09/2025 15:24:57 12/18/19 25 12/17/2024 US, obste tric, nucha l trans lucen cy No observ ation record ed. [email or web address] [address], [place], [address], 12/17/2024 17:14:02 12/18/19 25 12/17/2024 US, obste tric, nucha l trans lucen cy No observ ation record ed. Meena [address], [place], [address], 12/19/2024 10:22:49 02/15/20 25 02/14/2025 US, obste tric, 2nd or 3rd trime ster No observ ation [facility] [address], [place], [address], 02/14/2025 17:07:31 02/15/20 25 02/14/2025 US, obste tric, 2nd or 3rd trime ster No observ ation record ed. [email or web address] [address], [place], [address], 02/14/2025 16:04:18 05/05/20 25 05/05/2025 US, obste tric, follo w-up No observ ation record ed. [email or web address] [place] [address], [place], [address], 05/05/2025 18:49:46 05/05/20 25 05/05/2025 US, obste tric, follo w-up No observ ation record ed. Meena [address], [place], [address], 06/02/2025 11:18:53 Result Notes None recorded. Problems Name Problem SNOMED Code Status Onset Date Resolution Date Notes Provider Name and Address Organization Details Recorded Time 28189651 Active 2024 Gwen Rene null, [facility] 5 10:44:59 Migraine 23577168 Active 2024 on Qulipta, limited data in , declined MFM consultati on; follows with neurology JOSEY AKERS MD [address], [place], [address], [facility] 5 11:34:02 Problem Notes None [...] Available Not Available No t Available Vitals None Recorded Social History Question Answer Notes LastModified by [...] Or The Highest Degree You Have Received? 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 Occasional Information not available 05/03/2023 Mental Status Question Answer Note LastModified by Organization D etails LastModified Time Do you feel stressed (tense, restless, nervous, or anxious, or unable to sleep at night)? [id number] Information not available 05/03/2023 Family History Nothing [...] ICD10 Code Diagnosis IMO Codes Diagnosis Note [id number] JOSEY AKERS MD [place] [address],[place] [address] 04/08/2025 09:24:00 04/08/2025 10:05:17 Acute vaginitis 86643638 N76.0 99116 Gestation period, 28 weeks 72149764 Z3A.28 [id number] [id number] JOSEY AKERS MD [place] [address],[place] [address] 04/22/2025 11:53:59 04/22/2025 12:24:41 Third trimester 70195908 Z34.03 [id number] JOSEY AKERS MD [place] [address],[place] [address] 05/05/2025 17:28:46 05/06/2025 08:21:27 Uterine size for dates discrepancy 601413831 O26.843 Z3A.32 [id number] Health Concerns Section Related Observation LastModified by Organization Detai ls LastModified Time None Recorded Concern Status LastModified by Organization Details LastModified Time None Recorded Payers Encounter Date Sequence Insurance Name Policy Number Policy Romero Covered Member ID Romero Member ID Guarantor Name 05/05/2025 1 [employer] [id number] Patrice Lopez [id number] Teagan Lopez OBGyn Episode Ob Episode Information Episode Created Date Number of Fetuses Patient Bloodtype Patient rh Status Prepregnancy Weight lbs Domestic Partner Domestic Partner Phone Father Name Administrative Support Specialist Status 12/18/19 25 1 O Positive 144 Patrice Lopez OPEN Fetus Data First Name Last Name Admitted to NICU Weight (g) Sex Living Outcome Pediatric Complications Fetus ID Race Codes Race Delivery Type [id number] Problems Problem Notes Problem Name Start Date End Date Resolution Snomed Code Not e Migraine 12/17/2024 [id number] on Qulipt a, limited data in , [...] Date Ultra Sound Latest Days Gestation 0 [email or web address] 12/19/2024 06/26/20 25 0 Pre- Flowsheet Flowsheet Date 12/17/2024 Tam Score Blood Edema Fundus Height Fundus Units Glucose Ketones Leukocytes Nitrite Labor Signs Protein Cervic Dilation Cervic Effacement Cervic Station Type Weight in lbs Pre/Post Dialysis Refused Weight 145.028077805832 BP Diastolic BP Location Tested BP Systolic BP Type 74 L arm 111 sitting Fetus Heart Rate Present A Present Fetus Movement Comments Patient presents to [facility] care. Hx of migraines, on [...] Type Weight in lbs Pre/Post Dialysis Refused 148.624340463499 BP Diastolic BP Location Tested BP Systolic [...] Type Weight in lbs Pre/Post Dialysis Refused 157.221061661455 BP Diastolic BP Location Tested BP Systolic [...] Weight in lbs Pre/Post Dialysis Refused Weight 165.172782973399 BP Diastolic BP Location Tested BP Systolic [...] Weight in lbs Pre/Post Dialysis Refused Weight 172.741961571618 BP Diastolic BP Location Tested BP Systolic [...] Weight in lbs Pre/Post Dialysis Refused Weight 174.144559421136 BP Diastolic BP Location Tested BP Systolic [...] Type Weight in lbs Pre/Post Dialysis Refused 178.543819904209 BP Diastolic BP Location Tested BP Systolic [...] Type Weight in lbs Pre/Post Dialysis Refused 182.597451869774 BP Diastolic BP Location Tested BP Systolic [...] Weight in lbs Pre/Post Dialysis Refused Weight 185.516616854065 BP Diastolic BP Location Tested BP Systolic [...] Weight in lbs Pre/Post Dialysis Refused Weight 186.672810785524 BP Diastolic BP Location Tested BP Systolic [...] Weight in lbs Pre/Post Dialysis Refused Weight 188.687490837972 BP Diastolic BP Location Tested BP Systolic [...]
[2025-06-19 17:54] LABS: Hematocrit 44.1 % (37.0-47.0); Hemoglobin 14.9 g/dL (12.0-15.0); Immature Granulocyte Percent A 1.0 % (0-0.5); Lymphocytes Absolute Auto 1.61 K/mm3 (0.9-3.2); Mean Corpuscular HGB Conc 33.8 g/dl (32-36); Mean Corpuscular Hemoglobin 31.4 pg (26-34); Mean Corpuscular Volume 92.8 fl (80-100); Nucleated Red Blood Cells Absolute Auto 0.000 K/mm3 (0.0-0.012); Nucleated Red Blood Cells Perc 0.0 % (0.0-0.2); Platelet Count Result 221 k/mm3 (150-375); Red Blood Count 4.75 M/mm3 (4.2-5.4); White Blood Count 11.0 K/mm3 (4.5-10.0)
[2025-06-19 18:28] LABS: Syphilis IgG/IgM Antibody Non-Reactive (Nonreactive)
[2025-06-20] VITALS (259 sets, daily range): BP systolic 86–216; BP diastolic 35–192; PULSE 59–222; TEMP 36.6–37.5; O2SAT 71–100
[2025-06-20] MEDS: OXYTOCIN 30 UNITS/NS 500 ML 30 UNITS/500 ML BAG IV CONT (05:10)
[2025-06-20] MEDS: LACTATED RINGERS 1,000 ML 125 ML IV CONT ×4 (05:14→22:50)
--- NOTE | 2025-06-20 07:40 | WPDOBADMIT ---
Obstetrics - Admit Note Admission Note: record reviewed. No pertinent additions to the history and/or any subsequent changes in the physical findings that are not consistent with the expected course of the were found. Patient presents for elective induction of labor. uncomplicated. S/p cytotec x2. SROM of meconium stained fluid at 0338. Pitocin per protocol Additions to the history and/or subsequent changes in the physical findings follow. None.
[2025-06-20] MEDS: fentaNYL CITRATE INJ (*CRX) 100 MCG/2 ML VIAL IV PUSH (08:08)
--- NOTE | 2025-06-20 10:44 | WPDANESEPP ---
Anes - Eval Pre Procedure Procedure: Labor epidural Date/Time: 06/20/25 10:44 Surgeon: gera Preop Diagnosis: pain during labor Pre Op Diagnosis: IOL Patient Data Age: 24 Gender: F Height: 1.6 m Weight: 87 kg Last Vital Signs Temp 36.9 C 06/20/25 10:01 Pulse 90 06/20/25 10:31 BP 89/62 L 06/20/25 10:31 Pulse Ox 96 06/20/25 10:40 Allergies Allergy/AdvReac Type Severity Reaction Status Date / Time No Known Allergies Allergy Verified 06/19/25 17:38 Home Medications ?Medication ?Instructions ?Recorded ?Confirmed ?Type famotidine 20 mg tablet (Pepcid) 20 mg PO DAILY 06/03/25 06/03/25 History ferrous sulfate 325 mg (65 mg 325 mg PO DAILY 06/03/25 06/03/25 History iron) tablet (Feosol) vit no.95-ferrous 1 tablet PO DAILY 06/03/25 06/03/25 History fumarate 28 mg-folic acid 800 mcg tablet () Laboratory Tests 06/19/25 17:37 WBC 11.0 H K/mm3 (4.5-10.0) RBC 4.75 M/mm3 (4.2-5.4) Hgb 14.9 g/dL (12.0-15.0) Hct 44.1 % (37.0-47.0) MCV 92.8 fl (80-100) MCH 31.4 pg (26-34) MCHC 33.8 g/dl (32-36) RDW 12.6 % (11.5-14.5) Plt Count 221 k/mm3 (150-375) MPV 10.7 H fl (7.4-10.4) Immature Gran % (Auto) 1.0 H % (0-0.5) Neut % (Auto) 73.4 H % (45.5-73.1) Lymph % (Auto) 14.6 L % (18.3-44.2) [place] % (Auto) 9.0 H % (2.6-8.5) Eos % (Auto) 1.5 % (0-4.4) Baso % (Auto) 0.5 % (0.2-1.2) Lymph # (Auto) 1.61 K/mm3 (0.9-3.2) [place] # (Auto) 1.0 H K/mm3 (0.1-0.6) Eos # (Auto) 0.2 K/mm3 (0-0.3) Baso # (Auto) 0.1 K/mm3 (0.0-0.1) Abs Immat Gran (auto) 0.11 H K/mm3 (0.00-0.031) Absolute Neuts (auto) 8.1 H K/mm3 (1.3-6.7) Absolute Nucleated RBC 0.000 K/mm3 (0.0-0.012) Nucleated RBC % 0.0 % (0.0-0.2) Syphilis IgG/IgM Ab Non-reactive (Nonreactive) Blood Type O Positive Antibody Screen Negative Patient hx anesthesia problems: none Family hx anesthesia problems: none Results Review: All pre-operative results and documents have been reviewed as part of the pre-operative evaluation. [facility] Past Medical History Medical History (Updated 06/20/25 @ 10:46 by Pippa Redding CRNA) Obesity (BMI 30-39.9) IUP (intrauterine ), incidental Migraine Family History Family History (Updated 06/03/25 @ 13:42 by Coni Weiss RN) Other Hypothyroid Lung cancer Social History Social History Smoking status: Former smoker Tobacco type: e-cigarettes/vaping Substance use: never Lack of Transportation: No Lack of Food: Never True Current Housing: I Have Housing Concerned About Future Housing: No Difficulty Paying Gas/Electric Bills: No Difficulty Paying for Meds: No Currently Unemployed: No Education: Associate Degree Difficulty w/ Childcare or Family Care: No Spiritual care concerns: No Exam Day of Procedure 06/20/25 10:44
--- NOTE | 2025-06-20 13:04 | PM.OBPNLAB ---
Pain Control Date/time seen: 06/20/25 13:04 Pain control: epidural Pelvic Exam Dilation (cm): 7 Effacement (%): 90 station: -2 Amniotic membrane status: Ruptured (forebag, meconium stained fluid) Contractions Monitor mode: External Contraction pattern: Regular Status status: Category l Assessment and Plan Pitocin rate (mU/min): 8 Assessment: active labor Plan: continuous present management
[2025-06-20] MEDS: ONDANSETRON INJ 4 MG/2 ML VIAL IV PUSH (13:24)
[2025-06-20] MEDS: CALCIUM CARBONATE (TUMS) 500 MG (200 MG ELEMENTAL) PO (18:06)
[2025-06-20] MEDS: AMPICILLIN SODIUM 2 GM in SODIUM CHLORIDE 0.9% IV 100 ML 200 ML IVPB (20:59)
[2025-06-21] VITALS (47 sets, daily range): BP systolic 110–139; BP diastolic 45–81; PULSE 68–109; RESP 16–18; TEMP 36.5–37.8; O2SAT 94–100
[2025-06-21] MEDS: OXYTOCIN 30 UNITS/NS 500 ML 30 UNITS/500 ML BAG 125 UNITS IV CONT (00:24)
--- NOTE | 2025-06-21 00:41 | PM.OBPRVD ---
OB - Vaginal Delivery Note Procedure Delivery date: 06/21/25 Events: Elective Induction of Labor Induction method: Per Misoprostol Protocol Delivery augmentation: Rupture of Membranes and Pitocin Route of delivery: Episiotomy description: None Laceration Description: Perineal - 2nd Degree Delivery repair: vicryl Specimen: No Quantitative Blood Loss (ml): 200 Anesthesia type: Epidural Disposition: Floor Complications: No immediate complications Narrative: See H&P and notes for details on patient's admission and labor. She progressed to complete cervical dilation and at the appropriate time began pushing. With adequate expulsive efforts by the mother, the baby's head was delivered without difficulty. Nuchal cord was present x1. The baby's left shoulder was anterior and did not easily deliver. A shoulder dystocia was identified. Suprapubic pressure was applied. Wood screw and Rubins maneuvers were unsuccessful. Delivery of the posterior shoulder was unsuccessful. The posterior arm shrug was successful in reducing the shoulder dystocia. Total time was estimated at 2 minutes. The rest of the baby then delivered without difficulty. The umbilical cord was doubly clamped and cut immediately. Care of the was then assumed by the nursing staff. [place] Baby Date of : 06/20/25 Time of : 23:59 Gestational Age by Date: 39 gender: Female Weight (pounds): 9 Weight (ounces): 2 presentation: vertex position: Left Occiput Anterior Placenta delivery description: Expressed Cord Vessel Description: 3 Vessels, Nuchal Cord and Clamped/Cut score one minute: 4 score five minutes: 8
[2025-06-21] MEDS: IBUPROFEN 600 MG TABLET PO ×3 (02:31→19:50)
[2025-06-21] MEDS: BENZOCAINE 20% AER SPR (*SP) 56 GM CAN 1 SPRAY TOPICAL (03:04)
[2025-06-21] MEDS: WITCH HAZEL 40 PADS 1 PAD TOPICAL (03:04)
[2025-06-21] MEDS: ACETAMINOPHEN 325 MG TABLET 650 MG PO ×2 (03:42→19:50)
[2025-06-21] MEDS: MULTIVIT/MIN/PREN/FOL AC/IRON TABLET 1 TAB PO (08:51)
--- NOTE | 2025-06-21 16:30 | PC.NURSE ---
1500--up to shower with FOB at side. Shower chair in place and pt reminded to pull emergency cord if needed.
[2025-06-22] MEDS: IBUPROFEN 600 MG TABLET PO ×3 (04:45→16:12)
[2025-06-22] MEDS: ACETAMINOPHEN 325 MG TABLET 650 MG PO (04:45)
[2025-06-22 04:47] LABS: Hematocrit 37.5 % (37.0-47.0); Hemoglobin 12.8 g/dL (12.0-15.0)
[2025-06-22 09:00] VITALS: BP 135/68; PULSE 68; RESP 17; TEMP 37.1; O2SAT 98
[2025-06-22] MEDS: MULTIVIT/MIN/PREN/FOL AC/IRON TABLET 1 TAB PO (09:31)
[2025-06-22] MEDS: DOCUSATE SODIUM 100 MG CAPSULE PO ×2 (09:32→18:09)
[2025-06-22] MEDS: WITCH HAZEL 40 PADS 1 PAD TOPICAL (10:32)
--- NOTE | 2025-06-22 11:17 | P.PNOB_ITS ---
OB - PN: Subj Subjective Date/time seen: 06/22/25 11:17 Patient comments: no complaints, pain well controlled and tolerating diet OB - PN: Obj Data Labs 06/22/25 04:43 Labs: Laboratory Results - last 24 hr 06/22/25 04:43 Hgb 12.8 Hct 37.5 OB - PN A/P Plan day: 2 Plan: routine care and discharge home Time Spent With Patient Time: Total time spent is greater than 50% in coordination of care (as documented) at patient's floor/unit and/or counseling patient: Exam 2 Const: General: comfortable and no acute distress Resp: Effort & Inspection: normal respiratory effort Auscultation: no rales, no rhonchi and no wheezes Cardio: Rate: regular rate Heart sounds: no click, no murmurs and no rubs GI: GI Palp: Yes Soft to palpation and No Tenderness to palpation present (GI) Auscultation: normal bowel sounds Extrem: General: normal to inspection, no pedal edema and no calf tenderness
[2025-06-22 19:30] VITALS: BP 128/85; PULSE 60; RESP 16; TEMP 36.7; O2SAT 100
[2025-06-23 07:15] VITALS: BP 122/73; PULSE 53; RESP 16; TEMP 36.8; O2SAT 98
[2025-06-23] MEDS: MULTIVIT/MIN/PREN/FOL AC/IRON TABLET 1 TAB PO (08:19)
[2025-06-23] MEDS: ACETAMINOPHEN 325 MG TABLET 650 MG PO (08:19)
--- NOTE | 2025-06-23 08:30 | P.PNOB_ITS ---
OB - PN: Subj Subjective Date/time seen: 06/23/25 08:30 Patient comments: no complaints, pain well controlled, tolerating diet and flatus present OB - PN: Obj Data Labs 06/22/25 04:43 OB - PN A/P Plan day: 1 Comments: Post Op LTCS - no problems, routine recovery Time Spent With Patient Time: Total time spent is greater than 50% in coordination of care (as documented) at patient's floor/unit and/or counseling patient: Exam 2 Const: General: cooperative, healthy appearing, comfortable and no acute distress Resp: Auscultation: no crackles, no rales, no rhonchi and no wheezes Cardio: Rhythm: regular rhythm Heart sounds: no click and no murmurs GI: Inspection: non-distended Auscultation: normal bowel sounds Extrem: General: normal to inspection, no pedal edema and no calf tenderness
--- NOTE | 2025-06-23 08:31 | PM.OBDSVD ---
DS: Admitting Diagnosis Discharge Date 06/23/2025 Admitting Diagnosis Term DS: Discharge Diagnosis Discharge Diagnosis (1) Term delivered: Code(s): O80 - Encounter for full-term uncomplicated delivery Status: Acute OB - DS: Summary OB Procedures : None OB Procedures Intrapartum: Spontaneous Vag Delivery OB Procedures: : None Peripartum Data Laceration Description: Perineal - 2nd Degree Episiotomy description: None Time Spent with Patient Time attestation: Total time spent providing and/or coordinating discharge services: Discharge Plan Discharge Discharging Clinician: Ankit Brown Patient Disposition: Home Activity: pelvic rest Diet: regular Patient Instructions: Antibiotic Form Patient Language: Telugu Stand Alone Forms: General Discharge Information Follow-up/Referrals: Ankit Brown MD [Physician, ASSISTANT PROPERTY MANAGER] Discharge Medications: Continued PNV no.95-ferrous fumarate-FA [] 28 mg iron- 800 mcg tablet 1 tablet PO DAILY ferrous sulfate [Feosol] 325 mg (65 mg iron) tablet 325 mg PO DAILY famotidine [Pepcid] 20 mg tablet 20 mg PO DAILY Date of admission: 06/19/25 16:52 Primary Care Provider: UNKNOWN,DOCTOR Admitting Provider: Sanjiv Cook Attending physician on admission: Sanjiv Cook Condition: Stable
--- NOTE | 2025-06-23 11:05 | PC.NURSE ---
Consulted with patient to assess needs related to . Discussed with mother her successes, concerns and any questions she has. Per mother, she plans on feeding baby by breast and bottle, we talked about using her breast pump if does not effectively feed at the breast. We reviewed working with the , supporting breast, protecting her nipples with an optimal deep latch, good positioning, and good hand washing. Encouraged understanding the benefits of skin to skin, responding to feeding cues, frequencies of feeding 8-12 times in 24 hours (approximately 2-3 hours), duration of feedings, milk production, intake/output feeding sheet and signs of adequate intake encouraging swallowing at the breast. Reviewed positioning and alignment, supporting breast, off-centered (asymmetrical latch) and leading with the chin with big, open, wide gape. latched optimally to the [right] breast in [cradle/laid-back] position. Education given to the mother of how to visualize the suckling (with good rocking jaw motion) swallows (dropping of the lower jaw) and how to listen for drinking at the breast (the ka sound). The infant was [able] to maintain latch without discomfort to mother. Nipple care reviewed with optimal latch, good positioning and using clean hands when touching her breast. Resources used to facilitate learning were used from the [visual handouts/ tool/mom and baby guide]. Mother is feeding appropriately for growth of and understands stimulating infant to eat if needed. has had appropriate feedings in the last 24 hours meets the outcomes for weight, output, blood sugar and jaundice at this time. Reinforced understanding of milk production, transition of milk, signs of adequate intake, transition of stool, prevention/relief of engorgement, plugged ducts, mastitis, responsive watching for feeding cues, the different methods of stimulating to breastfeed 1-3 hours after the start of the last feeding, community resources, and when to call a provider using the resource of the feeding sheet along with the mom and baby guide. Mother voiced understanding of the information shared, is confident to continue effectively her at home, when to call for assistance, denies any additional assistance or education at this time. Reported to the Primary RN.
[2025-06-24 10:35] VITALS: BP 138/76; PULSE 60; RESP 16; TEMP 36.6; O2SAT 100
== END 2025-06-23 12:20 | disposition home or self-care (01) | DRG 807 ==
LOC: ANHOB2 06-23 10:56 → ANHLDR 06-25 08:18 → ANHOBPP 06-25 08:18
PROVIDERS: Admitting Provider Obstetrics & Gynecology; Visit Provider Obstetrics & Gynecology
DX: O42.02 Full-term premature rupture of membranes, onset of labor within 24 hours of rupture (principal); Z37.0 Single live birth; Z3A.39 39 weeks gestation of pregnancy; O70.1 Second degree perineal laceration during delivery; O77.0 Labor and delivery complicated by meconium in amniotic fluid; O69.81X0 Labor and delivery complicated by cord around neck, without compression, not applicable or unspecified; O66.0 Obstructed labor due to shoulder dystocia
CPT/HCPCS: 36415; 85014; 85018; 85025; 86593; 86850; 86900; 86901; A9270; J0290; J1200; J2405; J2590; J2795; J3010; J7120